=== PATIENT | female | born 1965 | race Caucasian/White ===

== ENCOUNTER → 2017-12-28 12:15 | Outpatient (CLI) | payer OTHER, SELFPAY ==
--- NOTE | 2017-12-28 13:37 | DI.CT.S_ITS ---
PROCEDURE: CT CHEST ABD PEL W CON INDICATIONS: Malignant neoplams of unspecified site TECHNIQUE: After the administration of oral and intravenous contrast, 5 mm thick sections acquired from the lung apices to the symphysis. 5 mm coronal and sagittal reformats were performed, with additional 7 mm coronal MIP reformats through the lungs. For radiation dose reduction, the following was used: automated exposure control, adjustment of mA and/or kV according to patient size. COMPARISON: [facility], US, BREAST UNILATERAL LIMITED, 01/07/2017, 15:04. [facility], , BILATERAL DIAGNOSTIC MAMMOGRAM, 01/07/2017, 14:30. [facility], CT, CHEST/ABD/PEL WITH CONTRAST, 10/29/2015, 15:06. FINDINGS: Image quality: Excellent. CHEST: Lungs and pleura: There are bilateral peripheral areas of scarring redemonstrated within the lung apices including several nodular components. There is also peripheral scarring posteriorly within the right upper and lower lobes along the right major fissure. The findings are similar to the prior study. No new suspicious nodules or masses lesions. No acute consolidation. No pleural effusions or pneumothorax. Central and peripheral airways appear patent and normal in caliber. Mediastinum: Heart size is normal. No pericardial effusion. No mediastinal or hilar adenopathy by size criteria. Thoracic aorta and central pulmonary arteries are normal in size. Esophagus is normal in caliber. No hiatal hernia. Chest wall: Within the medial left breast, there is a loculated thin-walled fluid collection measuring 7.0 x 5.9 x 6.3 cm with associated internal calcifications. No axillary or supraclavicular adenopathy by size criteria. Thyroid gland demonstrates no discrete nod and ules. ABDOMEN: Solid organs: Liver is normal in size and enhancement. Gallbladder appears within normal limits. Biliary system is non dilated. Pancreas enhances normally. Spleen is normal in size and enhancement. No adrenal nodules. Kidneys demonstrate no hydronephrosis. There are areas of focal left renal cortical thinning compatible with sequela of prior trauma, infarct, or infection. Peritoneum and bowel: Small bowel loops demonstrate normal wall thickness and caliber. There is moderate colonic stool distention suggestive of constipation. No definite obstruction. No free fluid or air. Nodes and vessels: No retroperitoneal or mesenteric adenopathy by size criteria. Aorta and inferior vena cava are normal in size. Miscellaneous: No ventral hernias. PELVIS: Genitourinary: Bladder wall thickness is normal. Miscellaneous: No inguinal hernias or adenopathy. Bones: No suspicious bony lesions. No vertebral body compression fractures. IMPRESSION: 1. Fluid collection within the medial left breast likely represents postsurgical changes. Recommend correlation clinically. 2. Elsewhere, no definite evidence of metastatic disease. Dictated by: Yao Park M.D. on 12/28/2017 at 15:58 Approved by: Yao Park M.D. on 12/28/2017 at 16:10
--- NOTE | 2018-02-23 11:17 | ONC.NAV ---
Description: T/C-Care Coordination/transfer back to Activity: Left a message for pt indicating that we now have a provider who can take her insurance, and would she like to transfer her care back to [facility]? Requested return call.
--- NOTE | 2018-03-14 14:22 | ONC.NAV ---
Description: Appt. Care Coordination Activity: Called and left a message for pt that after her appt. on 03/22 at [facility], that she can return back to [facility] for all ongoing oncology care with Dr. Stover. Katie Schmidt called [facility] and coordinated with the staff re: this plan. Encouraged pt to call this MARKETING RESEARCH INTERN back should she have any additional questions.
== END ==
PROVIDERS: PCP Physician Assistant; Visit Provider Internal Medicine Hematology & Oncology
DX: C80.1 Malignant (primary) neoplasm, unspecified (principal)
CPT/HCPCS: 71260; 74177; Q9967

== ENCOUNTER → 2018-01-10 15:54 | Outpatient (CLI) | payer OTHER, SELFPAY ==
[2018-01-10 17:31] LABS: Add Manual Diff / Slide Review NO; Basophils Percent Auto 1.4 % (0-2); Hematocrit 32.9 % (36-46); Hemoglobin 11.3 g/dL (12.0-16.0); Lymphocytes Percent Auto 19.3 % (25-40); Mean Corpuscular HGB Conc 34.5 % (30-36); Mean Corpuscular Hemoglobin 30.9 PG (26-34); Mean Corpuscular Volume 89.6 fL (80-100); Monocytes Percent Auto 5.9 % (3-14); Neutrophils Absolute Auto 5900 /uL (3000-5900); Neutrophils Percent Auto 64.4 % (50-75); Platelet Count 380 X10^3/uL (150-400); Red Blood Cell Count 3.68 X10^6/uL (4.0-5.2); Red Cell Distribution Width 13.1 % (11.6-14.8); White Blood Cell Count 9.2 X10^3/uL (4.5-11.0)
[2018-01-10 18:24] LABS: Alanine Aminotransferase 60 IU/L (9-52); Albumin Globulin Ratio 1.4 (1.0-2.8); Alkaline Phosphatase 73 U/L (38-126); Aspartate Aminotransferase 60 IU/L (14-36); Bilirubin Total 0.3 mg/dL (0.2-1.3); Blood Urea Nitrogen 6 mg/dL (7-17); Calcium 9.4 mg/dL (8.4-10.2); Carbon Dioxide 32 mmol/L (22-32); Chloride 93 mmol/L (98-107); Estimated Glomerular Filt Rate > 60.0 mL/min (>60); Globulin 2.8 g/dL (1.7-4.1); Glucose 81 mg/dL (70-100); HEMOLYSIS < 15 (0-50); Sodium 135 mmol/L (137-145); Total Protein 6.8 g/dL (6.3-8.2)
[2018-01-10 18:54] LABS: Carcinoembryonic Antigen 2.9 ng/mL (0.1-3.0)
[2018-01-12 15:30] LABS: Cancer Antigen 27.29 58 U/mL (< 38)
== END ==
PROVIDERS: PCP Physician Assistant; Visit Provider Internal Medicine Hematology & Oncology
DX: C50.912 Malignant neoplasm of unspecified site of left female breast (principal)
CPT/HCPCS: 36415; 80053; 82378; 85025; 86300

== ENCOUNTER → 2018-02-08 12:11 | Outpatient (CLI) | payer BC, OTHER, SELFPAY ==
--- NOTE | 2018-02-08 12:13 | DI.RAD.S_ITS ---
PROCEDURE: IR PICC W FLUORO GUIDE INDICATIONS: PIC PLACEMENT COMPARISON: None. FINDINGS: PICC was placed by the intravenous therapy team from the right side. Fluoroscopic spot film demonstrates tip of PICC overlying the distal SVC. IMPRESSION: Tip of PICC lies within the expected location. Dictated by: Mikel Hooper M.D. on 02/08/2018 at 14:36 Approved by: Mikel Hooper M.D. on 02/08/2018 at 14:37
--- NOTE | 2018-05-16 10:06 | ONC.NAV ---
Description: T/C re: transitioning care back to Activity: Left pt a message that both our oncologists are now credentialed with [employer], and encouraged her to call me re: scheduling her care back her at (which was her stated goal).
--- NOTE | 2018-05-16 13:25 | ONC.NAV ---
Description: Care Coordination/transfer back to Activity: Left patient a message that this SPORTS MANAGER spoke with the Navigator at [facility], and all patient needs to do is call [facility] to arrange for the placement of her PICC line, then call our office to schedule her next appointment with Dr. Andujar. She has no further appointments at [facility].
== END ==
PROVIDERS: Family Provider Physician Assistant; PCP Physician Assistant; Visit Provider Internal Medicine Hematology & Oncology
DX: Z45.2 Encounter for adjustment and management of vascular access device (principal)
CPT/HCPCS: 36569; 77001

== ENCOUNTER → 2018-06-15 13:36 | Outpatient (CLI) | payer OTHER, SELFPAY ==
--- NOTE | 2018-06-15 | DI.RAD.S_ITS ---
PROCEDURE: FL GUIDED PICC PLACEMENT INDICATIONS: MALIGNANT NEOPLASM OF LEFT BREAST IN FEMALE COMPARISON: None. FINDINGS: PICC was placed by the intravenous therapy team from the right side. Fluoroscopic spot film demonstrates tip of PICC in the SVC. IMPRESSION: Tip of PICC lies within the SVC. Dictated by: Sergio Cordoba M.D. on 06/15/2018 at 15:35 Approved by: Sergio Cordoba M.D. on 06/15/2018 at 15:36
== END ==
PROVIDERS: PCP Physician Assistant; Visit Provider Internal Medicine Hematology & Oncology
DX: C50.912 Malignant neoplasm of unspecified site of left female breast (principal); Z45.2 Encounter for adjustment and management of vascular access device
CPT/HCPCS: 36569; 77001

== ENCOUNTER 2018-06-15 19:24 | Emergency (ER) | payer OTHER, SELFPAY ==
--- NOTE | 2018-06-15 19:28 | ED_ITS ---
HPI - General Adult <CLEO Stover - Last Filed: 06/15/18 22:12> General Chief complaint: Recheck/Abnormal Lab/Rx Stated complaint: right arm PICC line wont stop bleeding Time Seen by Provider: 06/15/18 19:27 Source: patient Mode of arrival: ambulatory Limitations: no limitations History of Present Illness HPI narrative: 52-year-old female with history breast cancer that is a nonsmoker here for complaint of bleeding from her PICC line site to her right upper arm. She states she recently had a PICC line placed to day and has been bleeding slightly this afternoon after was placed. She denies any trauma to the area. She denies any pain. No other concerns or complaints at this time. She denies being on any blood thinners but she does take aspirin and Motrin daily for discomfort Related Data Home Medications Medication Instructions Recorded Confirmed OMEGA-3 FATTY ACIDS (FISH OIL) 500 mg PO Q DAY #0 04/24/16 06/14/18 Lacto.acidophilus-Bif.animalis 1 cap PO DAILY 12/15/17 06/14/18 [Probiotic] loratadine [Claritin] 10 mg PO DAILY PRN 12/15/17 06/14/18 multivitamin 1 tab PO DAILY 12/15/17 06/14/18 vitamin B complex 1 tab PO DAILY 12/15/17 06/14/18 Previous Rx's Medication Instructions Recorded cephalexin 500 mg capsule 500 mg PO BID 10 Days #20 cap 06/14/18 mupirocin 2 % topical ointment 1 applic TOP BID #30 gram 06/14/18 Allergies Allergy/AdvReac Type Severity Reaction Status Date / Time Sulfa (Sulfonamide Allergy Unknown Verified 06/14/18 09:20 Antibiotics) [SULFA (SULFONAMIDE ANTIBIOTICS)] Review of Systems <CLEO Stover - Last Filed: 06/15/18 22:12> Constitutional Denies chills, Denies fever(s), Denies lethargy and Denies weakness Eyes Denies change in vision, Denies eye discharge, Denies irritation and Denies loss of vision ENT Ears, Nose, Mouth, and Throat: Denies change in voice, Denies neck pain and Denies sore throat Cardiovascular Denies chest pain, Denies irregular heart rhythm, Denies lightheadedness, Denies palpitations, Denies dyspnea, Denies dyspnea on exertion and Denies orthopnea Respiratory Denies cough, Denies dyspnea, Denies dyspnea on exertion and Denies wheezing Gastrointestinal Gastrointestinal: Denies abdominal pain, Denies change in bowel habits, Denies diarrhea, Denies nausea and Denies vomiting Genitourinary Denies hematuria, Denies flank pain, Denies urinary incontinence and Denies urinary urgency Musculoskeletal Denies neck pain Comments: PICC line site to right upper arm bleeding Integumentary/Breasts Denies pruritus, Denies erythema, Denies rash and Denies wounds Neurologic Denies confusion, Denies loss of vision and Denies weakness Psychiatric Denies anxiety, Denies confusion, Denies depression, Denies homicidal ideation and Denies suicidal ideation Endocrine Denies palpitations Hematologic/Lymphatic Denies easy bruising Allergic/Immunologic Denies wheezing Exam <CLEO Stover - Last Filed: 06/15/18 22:12> Initial Vital Signs Initial Vital Signs: Vital Signs Temperature 97.7 F 06/15/18 19:31 Pulse Rate 81 06/15/18 19:31 Respiratory Rate 16 06/15/18 19:31 Blood Pressure 133/81 06/15/18 19:31 Pulse Oximetry 99 06/15/18 19:31 Const General: cooperative and well developed Nutritional Appearance: well nourished Orientation: alert, awake, oriented x3 and not confused [facility] Mouth: oral mucosae normal and moist mucous membranes Eyes General: appearance normal, both eyes and all related structures Eyelids: eyelids normal Conjunctivae: conjunctivae normal Sclera: sclerae normal Pupils: PERRL EOM: EOM intact bilaterally Resp Effort & Inspection: normal respiratory effort, able to speak in complete sentences, no respiratory distress and no use of accessory muscles Auscultation: clear to auscultation bilaterally, no rales, no rhonchi and no wheezes Cardio Rate: regular rate Rhythm: regular rhythm Heart Sounds: no click, no gallops, no murmurs and no rubs Pulses: normal peripheral pulses Skin General: no rashes or lesions noted, No jaundice and No petechiae Neuro General: alert, oriented x3, gait normal and no focal motor deficits Speech: speech normal Extrem Other: PICC line site to right upper arm with no signs of trauma. No signs of infection. No bleeding at current timeframe. Distal sensation is intact. Distal pulses are intact. Distal range of motion is intact <Jak Khalil DO - Last Filed: 06/15/18 22:36> Initial Vital Signs Initial Vital Signs: Vital Signs Temperature 97.7 F 06/15/18 19:31 Pulse Rate 81 18 19:31 Respiratory Rate 16 18 19:31 Blood Pressure 133/81 18 19:31 Pulse Oximetry 99 06/15/18 19:31 Course <CLEO Stover - Last Filed: 06/15/18 22:12> Vital Signs - 8 hr 06/15/18 19:31 Temperature 97.7 F Pulse Rate 81 Respiratory Rate 16 Blood Pressure 133/81 Pulse Oximetry 99 <Jak Khalil DO - Last Filed: 06/15/18 22:36> Vital Signs - 8 hr 06/15/18 19:31 Temperature 97.7 F Pulse Rate 81 Respiratory Rate 16 Blood Pressure 133/81 Pulse Oximetry 99 Medical Decision Making <CLEO Stover - Last Filed: 06/15/18 22:12> MDM Narrative Medical decision making narrative: Dressing to the right PICC line was changed in the emergency room. No signs of infection and no signs of bleeding at this time. PICC line was redressed. Patient to follow up with Oncology as scheduled in the next couple of days. Follow up with primary care provider. For any worsening symptoms return to the emergency room. She is encouraged to limit activity to the right upper arm this evening. Discharge Plan Departure Patient Disposition: Home Clinical Impression: Bleeding from PICC line Discharge Date/Time: 06/15/18 20:07 Interventions: ED Discharge Assessment Last Done: 06/15/18 20:07 Instructions: Peripherally Inserted Central Catheter Activity Restrictions/Additional Instructions: Dressing was changed to the PICC line. No bleeding appreciated at current time. Limit activity to the right upper arm this evening to prevent dislodging of a clotting factors. Follow up with her primary care provider/Oncology in the next couple days as scheduled. For any worsening symptoms return to the emergency room. Prescriptions: No Action cephalexin 500 mg capsule 500 mg PO BID 10 Days Qty: 20 RF: 0 mupirocin 2 % ointment 1 applic TOP BID Qty: 30 RF: 0 OMEGA-3 FATTY ACIDS (FISH OIL) 500 mg PO Q DAY Qty: 0 RF: 0 multivitamin Tablet 1 tab PO DAILY RF: 0 vitamin B complex Tablet 1 tab PO DAILY RF: 0 loratadine [Claritin] 10 mg Tablet 10 mg PO DAILY PRN (Reason: Allergy Symptoms) RF: 0 Lacto.acidophilus-Bif.animalis [Probiotic] 5 billion cell Capsule, Sprinkle 1 cap PO DAILY RF: 0 Referrals: Nguyen Rea PA-C [Primary Care Provider] - <Jak Khalil DO - Last Filed: 06/15/18 22:36> Cosign ED Attending [place] Attestation: I was available for consultation during this patient's emergency department encounter
[2018-06-15 19:31] VITALS: BP 133/81; PULSE 81; RESP 16; TEMP 36.5; O2SAT 99
== END 2018-06-15 20:07 | disposition home or self-care (01) ==
PROVIDERS: Emergency Provider Nurse Practitioner Family; PCP Physician Assistant
DX: T82.838A Hemorrhage due to vascular prosthetic devices, implants and grafts, initial encounter (principal)
CPT/HCPCS: 99282

== ENCOUNTER → 2018-07-05 07:56 | Outpatient (CLI) | payer OTHER, SELFPAY ==
--- NOTE | 2018-07-05 09:44 | DI.CT.S_ITS ---
PROCEDURE: CT CHEST ABD PEL W CON INDICATIONS: restaging breast cancer TECHNIQUE: After the administration of oral and intravenous contrast, 5 mm thick sections acquired from the lung apices to the symphysis. 5 mm coronal and sagittal reformats were performed, with additional 7 mm coronal MIP reformats through the lungs. For radiation dose reduction, the following was used: automated exposure control, adjustment of mA and/or kV according to patient size. COMPARISON: [facility], CT, CT CHEST ABD PEL W CON, 12/28/2017, 13:08. [facility], CT, CHEST/ABD/PEL WITH CONTRAST, 10/29/2015, 15:06. FINDINGS: Image quality: Excellent. CHEST: Lungs and pleura: Areas of subpleural thickening are seen, which are similar to the prior examination. No pleural effusions or pneumothorax. Central and peripheral airways appear patent and normal in caliber. Mediastinum: Heart size is normal. No pericardial effusion. No mediastinal or hilar adenopathy by size criteria. Thoracic aorta and central pulmonary arteries are normal in size. Esophagus is normal in caliber. There is a small hiatal hernia. Chest wall: No axillary or supraclavicular adenopathy by size criteria. Thyroid gland demonstrates no significant CT abnormality. An irregular, partially cystic left medial inferior breast lesion is seen, with skin ulceration. This breast lesion is smaller than on the prior examination and measures 5.2 x 2.8 cm in greatest axial dimension. A right-sided PICC line is seen, with the tip near the cavoatrial junction. ABDOMEN: Solid organs: Liver is normal in size and enhancement. Gallbladder wall does not appear thickened. Biliary system is non dilated. Pancreas enhances normally. Spleen is normal in size and enhancement. No adrenal nodules. Kidneys demonstrate normal size and enhancement, without hydronephrosis. lobulation can be seen of the left kidney. Peritoneum and bowel: Bowel loops demonstrate normal wall thickness and caliber. No free fluid or air. A prominent amount of stool can be seen within the colon. Nodes and vessels: No retroperitoneal or mesenteric adenopathy by size criteria. Aorta and inferior vena cava are normal in size. Miscellaneous: No ventral hernias. PELVIS: Genitourinary: Bladder wall thickness is normal. Miscellaneous: No inguinal hernias or adenopathy. Bones: No suspicious bony lesions. No vertebral body compression fractures. Mild levoconvex scoliotic curvature is noted. Degenerative changes are seen throughout, which are most prominent at the L4-L5 level. IMPRESSION: A partially cystic left breast lesion is seen, which is smaller than on the prior examination. Associated skin ulceration can be seen. No jenni findings of metastatic disease are seen. Stable areas of subpleural thickening are seen. Incidental note is made of: Right-sided PICC line Small hiatal hernia lobulation of the left kidney. Prominent colonic stool Focal L4-L5 degenerative change Levoconvex scoliotic curvature Dictated by: Latrell Echevarria M.D. on 07/05/2018 at 9:18 Approved by: Latrell Echevarria M.D. on 07/05/2018 at 9:25
== END ==
PROVIDERS: Family Provider Physician Assistant; PCP Physician Assistant; Visit Provider Nurse Practitioner Gerontology
DX: C50.919 Malignant neoplasm of unspecified site of unspecified female breast (principal); N60.02 Solitary cyst of left breast; L98.499 Non-pressure chronic ulcer of skin of other sites with unspecified severity; Z95.828 Presence of other vascular implants and grafts; K44.9 Diaphragmatic hernia without obstruction or gangrene; M47.816 Spondylosis without myelopathy or radiculopathy, lumbar region; M41.9 Scoliosis, unspecified
CPT/HCPCS: 71260; 74177; Q9967

== ENCOUNTER → 2018-07-07 15:57 | Outpatient (CLI) | payer OTHER, SELFPAY ==
--- NOTE | 2018-07-07 16:07 | DI.CT.S_ITS ---
PROCEDURE: CT SOFT TISSUE NECK W CON INDICATIONS: enlarged lymph node to neck TECHNIQUE: After the administration of intravenous contrast, 3.0 mm axial sections acquired from the sella to the aortic arch. Additional oblique axial 3.0 mm sections acquired through the pharynx. 3 mm thick coronal and sagittal reformats were generated. For radiation dose reduction, the following was used: automated exposure control. COMPARISON: [facility], MR, BRAIN WITHOUT CONTRAST, 01/19/2017, 20:24. [facility], CT, CT CHEST ABD PEL W CON, 07/05/2018, 9:11. FINDINGS: Image quality: Excellent. Lymph nodes: No enlarged lymph nodes seen throughout the neck. Vessels: Visualized vasculature appears patent. There is an apparent right subclavian artery, which traverses posterior to the esophagus. Incidental note is made of a common origin of the right brachiocephalic artery and the left common carotid artery (bovine type arch). This is considered to be a developmental variant of no clinical consequence. Neck spaces: The oropharynx, nasopharynx, and pharynx demonstrate no mucosal lesions. The vocal cords, false vocal cords, pyriform sinuses, epiglottis, vallecula, and tongue base all appear normal. Extramucosal spaces appear unremarkable. Glands: The parotid and submandibular glands appear normal. Thyroid gland demonstrates no significant CT abnormality. Miscellaneous: Visualized brain and orbits appear normal. Lung apices appear clear. Superficial soft tissues appear normal. There is a right-sided PICC line seen, extending into the superior vena cava. Bones: No suspicious bony lesions. Visualized sinuses and mastoids appear unremarkable. Degenerative changes are seen, which are most prominent at the C6-C7 level. IMPRESSION: No enlarged lymph nodes are seen. No findings of metastatic disease are seen. 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 on 07/07/2018 at 16:25 Approved by: Latrell Echevarria M.D. on 07/07/2018 at 16:30
== END ==
PROVIDERS: PCP Physician Assistant; Visit Provider Nurse Practitioner Gerontology
DX: C50.919 Malignant neoplasm of unspecified site of unspecified female breast (principal); R59.0 Localized enlarged lymph nodes; M47.812 Spondylosis without myelopathy or radiculopathy, cervical region
CPT/HCPCS: 70491; 87070; 87077; 87147; 87186; 87205; Q9967

== ENCOUNTER → 2018-09-13 14:39 | Outpatient (CLI) | payer OTHER, SELFPAY ==
--- NOTE | 2018-09-13 14:41 | DI.CT.S_ITS ---
PROCEDURE: CT CHEST ABD PEL W CON INDICATIONS: breast cancer TECHNIQUE: After the administration of oral and intravenous contrast, 5 mm thick sections acquired from the lung apices to the symphysis. 5 mm coronal and sagittal reformats were performed, with additional 7 mm coronal MIP reformats through the lungs. For radiation dose reduction, the following was used: automated exposure control, adjustment of mA and/or kV according to patient size. COMPARISON: [facility], CT, CT CHEST ABD PEL W CON, 12/28/2017, 13:08. [facility], CT, CT CHEST ABD PEL W CON, 07/05/2018, 9:11. FINDINGS: Image quality: Excellent. CHEST: Lungs and pleura: No acute consolidation. Scattered subsegmental atelectasis and/or scarring. No pleural effusions or pneumothorax. Central and peripheral airways appear patent and normal in caliber. Mediastinum: Heart size is normal. No pericardial effusion. No mediastinal or hilar adenopathy by size criteria. 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 Bovine anatomy of the aortic arch. Thoracic aorta and central pulmonary arteries are normal in size. Esophagus is normal in caliber. No hiatal hernia. Chest wall: No axillary or supraclavicular adenopathy by size criteria. Thyroid gland negative. Presumed postoperative changes including seroma or hematoma involving the medial left breast, appears decreased since the prior study. ABDOMEN: Solid organs: Mild hepatic steatosis. Gallbladder contracted otherwise unremarkable. Biliary system is non dilated. Gas is present within the distal common bile duct as before raises the possibility of prior sphincterotomy. Pancreas enhances normally. Spleen is normal in size and enhancement. No adrenal nodules. Bilateral renal cortical scarring, without hydronephrosis. Peritoneum and bowel: Bowel loops demonstrate normal wall thickness and caliber. There is a large amount of diffuse stool. No definite transition point or bowel obstruction identified. No free fluid or air. Appendix is not clearly identified however no suspicious pericecal inflammatory changes are identified Nodes and vessels: No retroperitoneal or mesenteric adenopathy by size criteria. Aorta and inferior vena cava are normal in size. Miscellaneous: No ventral hernias. PELVIS: Genitourinary: Bladder wall thickness is normal. Miscellaneous: No inguinal hernias or adenopathy. Bones: No suspicious bony lesions. No vertebral body compression fractures. IMPRESSION: No specific evidence for active metastatic disease. Presumed postsurgical changes involving the left breast with decreasing size of probable postoperative seroma/hematoma since the prior study. Mild hepatic steatosis. Additional chronic and incidental findings as above. Dictated by: Quinn Stover M.D. on 09/13/2018 at 16:37 Approved by: Quinn Stover M.D. on 09/13/2018 at 16:45
== END ==
PROVIDERS: Family Provider Physician Assistant; PCP Physician Assistant; Visit Provider Internal Medicine Hematology & Oncology
DX: C50.212 Malignant neoplasm of upper-inner quadrant of left female breast (principal); K76.0 Fatty (change of) liver, not elsewhere classified
CPT/HCPCS: 71260; 74177; Q9967

== ENCOUNTER → 2018-12-22 10:00 | Oncology outpatient (ONC) | payer BC, OTHER, SELFPAY ==
[2017-12-15 10:43] VITALS: BP 133/80; PULSE 65; RESP 17; TEMP 36.8; O2SAT 100
--- NOTE | 2017-12-15 16:20 | ONC.PN ---
Assessment and Plan - Time Spent with Patient IMPRESSION: 1. 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 Was scheduled for mastectomy on 07/21/2016 but opted not to proceed with surgery at that time. 2. Osteopenia. 3. Pneumonia, resolved. Treated at urgent care. I reviewed the findings and concerns with her today. Physical examination reveals a large, red and protruding mass emanating from the upper inner quadrant of the left breast. It measures approximately 6 cm x 6 cm. Currently without active drainage or bleeding. I strongly encouraged her to proceed expeditiously with restaging workup and surgical consultation. It is encouraging that she still denies any symptoms which might suggest metastatic disease. Again we will follow up with her next week to review CT and bone scan results and pursue further diagnostic imaging if indicated at that time. I offered her much a encouragement and will also have her meet with our clinical social work therapist and navigator following her visit with me today. PLAN: 1. CBC, CMP, CEA, CA 27.[address] chest/abdomen/pelvis 3. Bone scan 4. Referral to breast surgeon for consultation. 5. Meet with clinic humphrey today in clinic. 6. Return appointment in 1 week. 7. Further imaging and workup if indicated based on results of above studies. 8. DICTATED BY DANIELITO LAMAR MD MEDICAL ONCOLOGY AND HEMATOLOGY PN -Subjective Interval history: Hematology/oncology progress note Patient name: Lisa Barton Date of service: December 15, 2017 Date of : 1965 PCP: Nguyen PRAKASH Identification: Ms Barton is a 52-year-old woman with triple negative carcinoma of the left breast diagnosed October 09, 2015, grade 3/3, ER negative, NJ negative, HER2 negative. Interval history: She returns in follow-up today with her daughter FT. Last seen here in clinic by our nurse practitioner on December 23, 2016. Previously treated by Dr. Mistry with dose dense AC followed by weekly carboplatin/paclitaxel with last treatment 05/01/2016. She was reportedly scheduled for mastectomy on 07/21/2016 but chose not to have surgery at that time. She was seen here in clinic on December 23, 2016 after noting increasing size of a left breast lump. At that time the recommendation was to proceed with CT bone scan lab work and to follow up to review results as well as follow up with her surgeon. She apparently did not do so at that time and returns now a year later with complaints of increasing pain and swelling in the left breast lump. Despite this concern, she denies new areas of pain or discomfort, no bone pain, headache or new neurologic symptoms. No cough, dyspnea, nausea or abdominal pain. She says she is willing to have consultation with the surgeon again. Past Medical History The patient's past medical history is significant for: [1) left-sided invasive triple negative breast cancer. Diagnosis confirmed on core needle biopsy dated 10/09/2015. Pathology confirming invasive mammary carcinoma, poorly differentiated, with a Nagi histological grade 3 out of 3, and a mitotic rate of 3. No in situ component was seen, no LV I was identified. Longest diameter was 3.5 mm. Immunostains were ER NJ and HER-2 negative. Clinical staging workup has included CT of the chest on the pelvis on 10/29/2015. This reported a 88 x 50 ovoid peripherally enhancing mass in the right breast. No other disease was otherwise reported. Bone scan on 11/22/2015 reporting no evidence of osseous metastasis. Ultrasound of the left axilla ordered on 12/05/2015. Clinically the breast lesion measured 6 cm in greatest diameter. After 4 cycles of AC chemotherapy the left breast lesion measures 2 x 3 cm on clinical exam (01/23/2016). Baseline CEA on 10/29/2015 normal at 2.6, CA-27-29 of 54, , CA 15-3 at 46 . TREATMENT PLAN: Neoadjuvant chemotherapy, surgery, radiation therapy. Treatment goals are curative. Patient started neoadjuvant chemotherapy on 11/19/2015 with a regimen of dose dense Adriamycin and Cytoxan given every 2 weeks for total of 4 cycles. This will be followed by weekly paclitaxel and carboplatin AUC of 4 given every third week. No indication to restage her until completion of chemotherapy given the superficial location of her lesion. Adriamycin and cyclophosphamide at 60 and 600 mg/m? ?4 were administered without dose reductions. Patient required a 20% dose reduction of her carboplatin and paclitaxel starting cycle 1 week 2. Patient completed therapy on 05/01/2016. Surgical consultation with Dr. Avila on 05/15/2016. Based on her initial clinical stage she would be a candidate for chest wall radiation therapy. - Patient Self-Reported Symptoms SR respiratory issues: Cough, Mucous - Additional ROS Additional ROS: Review of systems General: Denies fever, chills. HEENT: No headaches, vision change or dysphagia. Respiratory: No cough or dyspnea. Cardiac: No chest pain, PND or orthopnea. GI: No nausea or abdominal bloating. : Negative. Musculoskeletal: Otherwise negative. Neurologic: Negative. Home Medications and Allergies Home Medications Medication Instructions Recorded Confirmed Type OMEGA-3 FATTY ACIDS (FISH OIL) 500 mg PO Q DAY #0 04/24/16 12/15/17 History naproxen 250 mg PO 1-2XD #0 07/14/16 12/15/17 History Lacto.acidophilus-Bif.animalis 1 cap PO DAILY 12/15/17 12/15/17 History [Probiotic] loratadine [Claritin] 10 mg PO DAILY PRN 12/15/17 12/15/17 History multivitamin 1 tab PO DAILY 12/15/17 12/15/17 History vitamin B complex 1 tab PO DAILY 12/15/17 12/15/17 History Allergies Allergy/AdvReac Type Severity Reaction Status Date / Time Sulfa (Sulfonamide Allergy Unknown Verified 12/15/17 11:04 Antibiotics) [SULFA (SULFONAMIDE ANTIBIOTICS)] Exam Vital signs: Last Vital Signs Temp 98.2 F 12/15/17 10:43 Pulse 65 12/15/17 10:43 Resp 17 12/15/17 10:43 BP 133/80 H 12/15/17 10:43 Pulse Ox 100 12/15/17 10:43 - Constitutional positive no acute distress, positive thin, positive cooperative - Routine HEENT Exam Head: Present: normocephalic, atraumatic Eye: Present: EOMI, PERRL. Absent: conjunctival icterus, scleral injection ENT: Present: mucous membranes moist, oropharynx clear - Routine Neck Exam Absent: JVD, lymphadenopathy - Routine Chest/Breast/Axilla Exam Breast: Present: tenderness, induration, mass, erythema Axillae: Present: tenderness. Absent: lymphadenopathy, mass - Routine Respiratory Exam Present: Clear to auscultation bilaterally. Absent: rales, wheezes - Routine Cardiovascular Exam Present: RRR, S1, S2. Absent: murmur, S3 - Routine Abdominal Exam Present: soft, normoactive bowel sounds. Absent: tenderness, organomegaly Palpation/Percussion: Absent: hepatomegaly - Routine Extremities Exam Absent: cyanosis, clubbing, edema - Routine Skin Exam Present: intact. Absent: cyanosis, erythema, jaundice, rash, ecchymosis - Routine Neurological Exam Present: alert, oriented X3, normal speech - Routine Psychiatric Exam Present: normal affect, cooperative
--- NOTE | 2018-01-12 14:39 | P.PNONC_ITS ---
Assessment and Plan - Time Spent with Patient IMPRESSION: 1. Locally advanced, triple negative carcinoma of the left breast diagnosed October 09, 2015 with core needle biopsy and completed neoadjuvant chemotherapy with dose dense AC x4 cycles, followed by weekly paclitaxel/carboplatin on May 01, 2016. Scheduled for mastectomy on July 21, 2016 but chose to defer surgery at that time. Tumor has since regrown. 2. Osteopenia. 3. Anxiety. 4. Pneumonia, resolved. 5. Anemia, normocytic. I reviewed recent lab and imaging results with her today's visit. Bone scan December 27, 2017 shows no suspicious uptake to suggest osseous metastases. Increased uptake in the lower lumbar spine and in the right hip most likely degenerative in nature. CT chest/abdomen/pelvis with contrast December 28, 2017 shows loculated fluid collection within the medial left breast but no axillary or supraclavicular adenopathy by size criteria. No definite evidence for metastatic disease by CT. Routine lab work notable for normocytic anemia, mild. I reviewed the findings with her today. These are certainly encouraging since it is now approximately 20 months since she completed neoadjuvant chemotherapy. She has had no specific treatment since then yet current imaging does not show evidence of regional involvement or metastatic disease. She is willing to consider treatment at this time and I would agree with Dr. Wiseman that we should consider further neoadjuvant therapy before attempting surgical resection with mastectomy. She is willing to proceed with surgery when needed and feels very comfortable with Dr. Wiseman, she tells me today. She is willing to consider further chemotherapy treatment and we reviewed this. Her case was reviewed at tumor Board and repeat biopsy was recommended to reassess HER2 and ER status given the unusual history and tumor behavior. We will contact Dr. Wiseman's office to see if she plans an excisional biopsy otherwise we will refer her for ultrasound-guided biopsy and then plan to proceed with systemic therapy. I would not recommend further anthracycline based treatment with AC or Doxil given the risk for cardiomyopathy. She noted only minor tingling in her fingertips with paclitaxel and carboplatin. The symptoms have since completely resolved and she denies any symptoms of neuropathy at this time. I would favor retreatment with paclitaxel and carboplatin given her previous response (overall). Other options would include capecitabine, as well as vinorelbine, gemcitabine, eribulin, and others. PLAN: 1. Meet with navigator in clinic today. Continue close follow-up and support. 2. Referral for ultrasound-guided core needle biopsy of left breast mass. Re- evaluated for HER2 and ER status. 3. Meet with clinic nurse for teaching and scheduling for chemotherapy. 4. Follow up with other providers as planned. 5. Return appointment to review biopsy results and finalize treatment plan. 6. CBC, CMP, CA 27.29 and CEA prior to start of treatment. 7. Calcium, vitamin-D and weight-bearing exercise program. DICTATED BY DANIELITO LAMAR MD MEDICAL ONCOLOGY AND HEMATOLOGY PN -Subjective Interval history: Hematology/oncology progress note Patient name: Lisa Barton Date of service: January 12, 2018 Date of : 1965 PCP: Nguyen PRAKASH Identification: Ms Barton is a 52-year-old woman with triple negative carcinoma of the left breast diagnosed October 09, 2015, grade 3/3, ER negative, ID negative, HER2 negative. Interval history: She returns in follow-up today to review recent imaging studies. She was originally diagnosed with core needle biopsy of the left breast October 09, 2015. Completed neoadjuvant chemotherapy with 4 cycles of AC followed by paclitaxel and carboplatin weekly for approximately 12 weeks. Clinic note suggest a significant response and she was referred for consideration of interval mastectomy. She completed neoadjuvant chemotherapy on May 01, 2016. Had consultation with Dr. Avila on May 15, 2016. Unfortunately, she did not follow up for surgery and was lost to follow-up until November 2016. At that time she was referred for biopsy by Corine GALLO but did not follow-up for this or return to clinic in tail November 2017. When most recently seen here in clinic last month she was noted to have a large fungating mass arising from the left breast which she estimated to be similar in size to the size at presentation prior to her neoadjuvant therapy. After evaluation here in clinic, we referred her for restaging with CT and bone scan, lab work and referred her to a breast surgeon. She returns today to review the results. She met with Dr. Wiseman in [facility] yesterday and reviewed the imaging results and potential plan for surgical resection. Dr. Wiseman is understandably concerned about whether resection could be accomplished at this time without difficulty with surgical closure as well as chest wall margin. She has recommended additional neoadjuvant therapy in an attempt to reduce the size and extent of the tumor and allow her to resect the residual mass. Past Medical History The patient's past medical history is significant for: [1) left-sided invasive triple negative breast cancer. Diagnosis confirmed on core needle biopsy dated 10/09/2015. Pathology confirming invasive mammary carcinoma, poorly differentiated, with a Douglas histological grade 3 out of 3, and a mitotic rate of 3. No in situ component was seen, no LV I was identified. Longest diameter was 3.5 mm. Immunostains were ER ID and HER-2 negative. Clinical staging workup has included CT of the chest on the pelvis on 2015. This reported a 88 x 50 ovoid peripherally enhancing mass in the right breast. No other disease was otherwise reported. Bone scan on 11/22/2015 reporting no evidence of osseous metastasis. Ultrasound of the left axilla ordered on 12/05/2015. Clinically the breast lesion measured 6 cm in greatest diameter. After 4 cycles of AC chemotherapy the left breast lesion measures 2 x 3 cm on clinical exam (01/23/2016). Baseline CEA on 10/29/2015 normal at 2.6, CA-27-29 of 52, , CA 15-3 at 46 . TREATMENT PLAN: Neoadjuvant chemotherapy, surgery, radiation therapy. Treatment goals are curative. Patient started neoadjuvant chemotherapy on 11/19/2015 with a regimen of dose dense Adriamycin and Cytoxan given every 2 weeks for total of 4 cycles. This will be followed by weekly paclitaxel and carboplatin AUC of 4 given every third week. No indication to restage her until completion of chemotherapy given the superficial location of her lesion. Adriamycin and cyclophosphamide at 60 and 600 mg/m? ?4 were administered without dose reductions. Patient required a 20% dose reduction of her carboplatin and paclitaxel starting cycle 1 week 2. Patient completed therapy on 05/01/2016. Surgical consultation with Dr. Avila on 05/15/2016. Based on her initial clinical stage she would be a candidate for chest wall radiation therapy. - Patient Self-Reported Symptoms SR respiratory issues: Cough, Mucous - Additional ROS Additional ROS: Review of systems General: No fever or chills. HEENT: No headaches, vision change, dental pain or dysphagia. Respiratory: No cough or dyspnea. Cardiac: No chest pain, PND or orthopnea. GI: Negative. : Negative. Musculoskeletal: As above. Neurologic: Negative. Home Medications and Allergies Home Medications Medication Instructions Recorded Confirmed Type OMEGA-3 FATTY ACIDS (FISH OIL) 500 mg PO Q DAY #0 04/24/16 01/12/18 History naproxen 250 mg PO 1-2XD #0 07/14/16 01/12/18 History Lacto.acidophilus-Bif.animalis 1 cap PO DAILY 12/15/17 01/12/18 History [Probiotic] loratadine [Claritin] 10 mg PO DAILY PRN 12/15/17 01/12/18 History multivitamin 1 tab PO DAILY 12/15/17 01/12/18 History vitamin B complex 1 tab PO DAILY 12/15/17 01/12/18 History Allergies Allergy/AdvReac Type Severity Reaction Status Date / Time Sulfa (Sulfonamide Allergy Unknown Verified 12/15/17 11:04 Antibiotics) [SULFA (SULFONAMIDE ANTIBIOTICS)] Exam Vital signs: Last Vital Signs Temp 98.2 F 12/15/17 10:43 Pulse 65 12/15/17 10:43 Resp 17 12/15/17 10:43 BP 133/80 H 12/15/17 10:43 Pulse Ox 100 12/15/17 10:43 - Constitutional positive no acute distress, positive thin, positive cooperative - Routine HEENT Exam Head: Present: normocephalic, atraumatic Eye: Present: EOMI, PERRL - Routine Skin Exam Absent: rash - Routine Neurological Exam Present: alert, oriented X3, moving all extremities, normal speech. Absent: abnormal gait - Routine Psychiatric Exam Present: normal affect, normal thought process, cooperative, anxious. Absent: depressed
[2018-01-12 15:51] VITALS: BP 135/77; PULSE 79; RESP 18; TEMP 36.4; O2SAT 100
[2018-01-26 15:52] VITALS: BP 128/76; PULSE 78; RESP 17; TEMP 37.1; O2SAT 99
--- NOTE | 2018-01-26 16:20 | ONC.PN ---
Assessment and Plan - Time Spent with Patient IMPRESSION: 1. 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 Completed neoadjuvant chemotherapy with dose dense Adriamycin and Cytoxan x4 cycles followed by weekly paclitaxel/carboplatin on May 01, 2016. Was scheduled for mastectomy July 21, 2016 but she chose to defer surgery at that time. Recently returned in November after no treatment or follow-up for over a year with significant tumor regrowth. Staging continues to show no evidence of metastatic spread. Bone scan December 27, 2017 shows no suspicious uptake to suggest osseous metastases. Increased uptake in the lower lumbar spine and in the right hip most likely degenerative in nature. CT chest/abdomen/pelvis with contrast December 28, 2017 shows loculated fluid collection within the medial left breast but no axillary or supraclavicular adenopathy by size criteria. No definite evidence for metastatic disease by CT. 2. Pain secondary to above. 3. Osteopenia. 4. Anemia, normocytic. 5. Anxiety. 6. Recent pneumonia, treated and resolved. I reviewed the findings and clinical concerns with her today. Tumor has enlarged significantly since my last exam. She is having significant pain and at risk for skin breakdown and increased drainage in bleeding without prompt treatment. We reviewed treatment options and she would like to proceed with chemotherapy as planned. I would recommend starting treatment as soon as possible. Given her previous treatment, significant clinical response and apparent tolerance of the regimen I would recommend retreatment with paclitaxel and carboplatin. She understands the potential risk of cardiomyopathy with further anthracycline based chemotherapy. Other systemic options would include capecitabine as well as others. Ideally, we would like to see a prompt an early response to treatment. She denies any residual symptoms of neuropathy at this time other than minor symptoms in her left hand which she attributes to the local tumor rather than her previous chemotherapy. She is also scheduled for biopsy of the left breast mass on February 07 which is being done to confirm it is still HER2 negative. I reviewed side effects and potential toxicities for treatment with paclitaxel and carboplatin. These include but are not limited to: Fatigue, alopecia, mucositis, nausea, vomiting, abdominal pain, weight loss, neutropenia with risk of sepsis or , anemia and potential need for transfusion, thrombocytopenia and risk for hemorrhage or stroke, fatigue, malaise, headache, depression, rash, phlebitis, thromboembolic complications including DVT, pulmonary embolus or stroke, hypersensitivity reaction or anaphylaxis, pneumonitis, neuropathy, extravasation injury, colitis, constipation and other potential concerns. She voices understanding, accepts the side effects and risks discussed and consents to treatment as outlined. PLAN: 1. CBC, CMP, CEA, CA 27.29 today. 2. PICC line placement. 3. Meet with infusion nurse for teaching, scheduling and orientation. 4. Follow up with Dr. Wiseman for biopsy as planned. 5. Orders for paclitaxel 80 mg/m2 with carboplatin (AUC 2) IV every 7 days. Anticipate starting treatment in the next few days. 6. Dexamethasone 20 mg p.o. 12 hr prior to 1st paclitaxel. Standard premedication with steroids, Benadryl and ranitidine prior to treatment. 7. Mouth rinses and neutropenic precautions. 8. Filgrastim support if indicated. 9. Transfuse RBCs or platelets if needed. 10. Monitor for neutropenic fever, symptomatic side effects, neuropathy, etc. 11. Return appointment in 2 weeks. 12. CBC, CMP weekly. CEA and CA 27.29 every 3 weeks. 13. Anticipate left mastectomy after neoadjuvant chemotherapy response. DICTATED BY DANIELITO LAMAR MD MEDICAL ONCOLOGY AND HEMATOLOGY. PN -Subjective Interval history: Hematology/oncology progress note Patient name: Lisa Barton Date of service: January 12, 2018 Date of : 1965 PCP: Nguyen PRAKASH Identification: Ms Barton is a 52-year-old woman with triple negative carcinoma of the left breast diagnosed October 09, 2015, grade 3/3, ER negative, GA negative, HER2 negative. Interval history: She returns in follow-up today to review recent imaging studies. She was originally diagnosed with core needle biopsy of the left breast October 09, 2015. Completed neoadjuvant chemotherapy with 4 cycles of AC followed by paclitaxel and carboplatin weekly for approximately 12 weeks. Clinic note suggest a significant response and she was referred for consideration of interval mastectomy. She completed neoadjuvant chemotherapy on May 01, 2016. Had consultation with Dr. Avila on May 15, 2016. Unfortunately, she did not follow up for surgery and was lost to follow-up until November 2016. At that time she was referred for biopsy by Corine GALLO but did not follow-up for this or return to clinic in tail November 2017. When most recently seen here in clinic last month she was noted to have a large fungating mass arising from the left breast which she estimated to be similar in size to the size at presentation prior to her neoadjuvant therapy. After evaluation here in clinic, we referred her for restaging with CT and bone scan, lab work and referred her to a breast surgeon. She returns today to review the results. She met with Dr. Wiseman in [facility] yesterday and reviewed the imaging results and potential plan for surgical resection. Dr. Wiseman is understandably concerned about whether resection could be accomplished at this time without difficulty with surgical closure as well as chest wall margin. She has recommended additional neoadjuvant therapy in an attempt to reduce the size and extent of the tumor and allow her to resect the residual mass. Past Medical History The patient's past medical history is significant for: [1) left-sided invasive triple negative breast cancer. Diagnosis confirmed on core needle biopsy dated 10/09/2015. Pathology confirming invasive mammary carcinoma, poorly differentiated, with a Nagi histological grade 3 out of 3, and a mitotic rate of 3. No in situ component was seen, no LV I was identified. Longest diameter was 3.5 mm. Immunostains were ER GA and HER-2 negative. Clinical staging workup has included CT of the chest on the pelvis on 10/29/2015. This reported a 88 x 50 ovoid peripherally enhancing mass in the right breast. No other disease was otherwise reported. Bone scan on 11/22/2015 reporting no evidence of osseous metastasis. Ultrasound of the left axilla ordered on 12/05/2015. Clinically the breast lesion measured 6 cm in greatest diameter. After 4 cycles of AC chemotherapy the left breast lesion measures 2 x 3 cm on clinical exam (01/23/2016). Baseline CEA on 10/29/2015 normal at 2.6, CA-27-29 of 54, , CA 15-3 at 46 . TREATMENT PLAN: Neoadjuvant chemotherapy, surgery, radiation therapy. Treatment goals are curative. Patient started neoadjuvant chemotherapy on 11/19/2015 with a regimen of dose dense Adriamycin and Cytoxan given every 2 weeks for total of 4 cycles. This will be followed by weekly paclitaxel and carboplatin AUC of 4 given every third week. No indication to restage her until completion of chemotherapy given the superficial location of her lesion. Adriamycin and cyclophosphamide at 60 and 600 mg/m? ?4 were administered without dose reductions. Patient required a 20% dose reduction of her carboplatin and paclitaxel starting cycle 1 week 2. Patient completed therapy on 05/01/2016. Surgical consultation with Dr. Avila on 05/15/2016. Based on her initial clinical stage she would be a candidate for chest wall radiation therapy. - Patient Self-Reported Symptoms SR respiratory issues: Cough, Mucous Home Medications and Allergies Home Medications Medication Instructions Recorded Confirmed Type OMEGA-3 FATTY ACIDS (FISH OIL) 500 mg PO Q DAY #0 04/24/16 01/12/18 History naproxen 250 mg PO 1-2XD #0 07/14/16 01/12/18 History Lacto.acidophilus-Bif.animalis 1 cap PO DAILY 12/15/17 01/12/18 History [Probiotic] loratadine [Claritin] 10 mg PO DAILY PRN 12/15/17 01/12/18 History multivitamin 1 tab PO DAILY 12/15/17 01/12/18 History vitamin B complex 1 tab PO DAILY 12/15/17 01/12/18 History Allergies Allergy/AdvReac Type Severity Reaction Status Date / Time Sulfa (Sulfonamide Allergy Unknown Verified 12/15/17 11:04 Antibiotics) [SULFA (SULFONAMIDE ANTIBIOTICS)] Exam Vital signs: Last Vital Signs Temp 98.8 F 01/26/18 15:52 Pulse 78 01/26/18 15:52 Resp 17 01/26/18 15:52 BP 128/76 H 01/26/18 15:52 Pulse Ox 99 01/26/18 15:52
--- NOTE | 2018-01-26 16:37 | P.PNONC_ITS ---
Assessment and Plan - Time Spent with Patient IMPRESSION: 1. 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 Completed neoadjuvant chemotherapy with dose dense Adriamycin and Cytoxan x4 cycles followed by weekly paclitaxel/ carboplatin on May 01, 2016. Was scheduled for mastectomy July 21, 2016 but she chose to defer surgery at that time. Recently returned in November after no treatment or follow-up for over a year with significant tumor regrowth. Staging continues to show no evidence of metastatic spread. Bone scan December 27, 2017 shows no suspicious uptake to suggest osseous metastases. Increased uptake in the lower lumbar spine and in the right hip most likely degenerative in nature. CT chest/abdomen/pelvis with contrast December 28, 2017 shows loculated fluid collection within the medial left breast but no axillary or supraclavicular adenopathy by size criteria. No definite evidence for metastatic disease by CT. 2. Pain secondary to above. 3. Osteopenia. 4. Anemia, normocytic. 5. Anxiety. 6. Recent pneumonia, treated and resolved. I reviewed the findings and clinical concerns with her today. Tumor has enlarged significantly since my last exam. She is having significant pain and at risk for skin breakdown and increased drainage in bleeding without prompt treatment. We reviewed treatment options and she would like to proceed with chemotherapy as planned. I would recommend starting treatment as soon as possible. Given her previous treatment, significant clinical response and apparent tolerance of the regimen I would recommend retreatment with paclitaxel and carboplatin. She understands the potential risk of cardiomyopathy with further anthracycline based chemotherapy. Other systemic options would include capecitabine as well as others. Ideally, we would like to see a prompt an early response to treatment. She denies any residual symptoms of neuropathy at this time other than minor symptoms in her left hand which she attributes to the local tumor rather than her previous chemotherapy. She is also scheduled for biopsy of the left breast mass on February 07 which is being done to confirm it is still HER2 negative. I reviewed side effects and potential toxicities for treatment with paclitaxel and carboplatin. These include but are not limited to: Fatigue, alopecia, mucositis, nausea, vomiting, abdominal pain, weight loss, neutropenia with risk of sepsis or , anemia and potential need for transfusion, thrombocytopenia and risk for hemorrhage or stroke, fatigue, malaise, headache, depression, rash , phlebitis, thromboembolic complications including DVT, pulmonary embolus or stroke, hypersensitivity reaction or anaphylaxis, pneumonitis, neuropathy, extravasation injury, colitis, constipation and other potential concerns. She voices understanding, accepts the side effects and risks discussed and consents to treatment as outlined. PLAN: 1. CBC, CMP, CEA, CA 27.29 today. 2. PICC line placement. 3. Meet with infusion nurse for teaching, scheduling and orientation. 4. Follow up with Dr. Wiseman for biopsy as planned. 5. Orders for paclitaxel 80 mg/m2 with carboplatin (AUC 2) IV every 7 days. Anticipate starting treatment in the next few days. 6. Dexamethasone 20 mg p.o. 12 hr prior to 1st paclitaxel. Standard premedication with steroids, Benadryl and ranitidine prior to treatment. 7. Mouth rinses and neutropenic precautions. 8. Filgrastim support if indicated. 9. Transfuse RBCs or platelets if needed. 10. Monitor for neutropenic fever, symptomatic side effects, neuropathy, etc. 11. Return appointment in 2 weeks. 12. CBC, CMP weekly. CEA and CA 27.29 every 3 weeks. 13. Anticipate left mastectomy after neoadjuvant chemotherapy response. DICTATED BY DANIELITO LAMAR MD MEDICAL ONCOLOGY AND HEMATOLOGY. PN -Subjective Interval history: Hematology/oncology progress note Patient name: Lisa Barton Date of service: January 12, 2018 Date of : 1965 PCP: Nguyen PRAKASH Identification: Ms Barton is a 52-year-old woman with triple negative carcinoma of the left breast diagnosed October 09, 2015, grade 3/3, ER negative, PA negative, HER2 negative. Interval history: She returns in follow-up today to review recent imaging studies. She was originally diagnosed with core needle biopsy of the left breast October 09, 2015. Completed neoadjuvant chemotherapy with 4 cycles of AC followed by paclitaxel and carboplatin weekly for approximately 12 weeks. Clinic note suggest a significant response and she was referred for consideration of interval mastectomy. She completed neoadjuvant chemotherapy on May 01, 2016. Had consultation with Dr. Avila on May 15, 2016. Unfortunately, she did not follow up for surgery and was lost to follow-up until November 2016. At that time she was referred for biopsy by Corine GALLO but did not follow-up for this or return to clinic in tail November 2017. When most recently seen here in clinic last month she was noted to have a large fungating mass arising from the left breast which she estimated to be similar in size to the size at presentation prior to her neoadjuvant therapy. After evaluation here in clinic, we referred her for restaging with CT and bone scan, lab work and referred her to a breast surgeon. She returns today to review the results. She met with Dr. Wiseman in [facility] yesterday and reviewed the imaging results and potential plan for surgical resection. Dr. Wiseman is understandably concerned about whether resection could be accomplished at this time without difficulty with surgical closure as well as chest wall margin. She has recommended additional neoadjuvant therapy in an attempt to reduce the size and extent of the tumor and allow her to resect the residual mass. Past Medical History The patient's past medical history is significant for: [1) left-sided invasive triple negative breast cancer. Diagnosis confirmed on core needle biopsy dated 10/09/2015. Pathology confirming invasive mammary carcinoma, poorly differentiated, with a Nagi histological grade 3 out of 3, and a mitotic rate of 3. No in situ component was seen, no LV I was identified. Longest diameter was 3.5 mm. Immunostains were ER PA and HER-2 negative. Clinical staging workup has included CT of the chest on the pelvis on 2015. This reported a 88 x 50 ovoid peripherally enhancing mass in the right breast. No other disease was otherwise reported. Bone scan on 11/22/2015 reporting no evidence of osseous metastasis. Ultrasound of the left axilla ordered on 12/05/2015. Clinically the breast lesion measured 6 cm in greatest diameter. After 4 cycles of AC chemotherapy the left breast lesion measures 2 x 3 cm on clinical exam (01/23/2016). Baseline CEA on 10/29/2015 normal at 2.6, CA-27-29 of 54, , CA 15-3 at 46 . TREATMENT PLAN: Neoadjuvant chemotherapy, surgery, radiation therapy. Treatment goals are curative. Patient started neoadjuvant chemotherapy on 11/19/2015 with a regimen of dose dense Adriamycin and Cytoxan given every 2 weeks for total of 4 cycles. This will be followed by weekly paclitaxel and carboplatin AUC of 4 given every third week. No indication to restage her until completion of chemotherapy given the superficial location of her lesion. Adriamycin and cyclophosphamide at 60 and 600 mg/m? ?4 were administered without dose reductions. Patient required a 20% dose reduction of her carboplatin and paclitaxel starting cycle 1 week 2. Patient completed therapy on 05/01/2016. Surgical consultation with Dr. Avila on 05/15/2016. Based on her initial clinical stage she would be a candidate for chest wall radiation therapy. - Patient Self-Reported Symptoms SR respiratory issues: Cough, Mucous Home Medications and Allergies Home Medications Medication Instructions Recorded Confirmed Type OMEGA-3 FATTY ACIDS (FISH OIL) 500 mg PO Q DAY #0 04/24/16 01/12/18 History naproxen 250 mg PO 1-2XD #0 07/14/16 01/12/18 History Lacto.acidophilus-Bif.animalis 1 cap PO DAILY 12/15/17 01/12/18 History [Probiotic] loratadine [Claritin] 10 mg PO DAILY PRN 12/15/17 01/12/18 History multivitamin 1 tab PO DAILY 12/15/17 01/12/18 History vitamin B complex 1 tab PO DAILY 12/15/17 01/12/18 History Allergies Allergy/AdvReac Type Severity Reaction Status Date / Time Sulfa (Sulfonamide Allergy Unknown Verified 12/15/17 11:04 Antibiotics) [SULFA (SULFONAMIDE ANTIBIOTICS)] Exam Vital signs: Last Vital Signs Temp 98.8 F 01/26/18 15:52 Pulse 78 01/26/18 15:52 Resp 17 01/26/18 15:52 BP 128/76 H 01/26/18 15:52 Pulse Ox 99 01/26/18 15:52
--- NOTE | 2018-01-27 11:48 | ONC.NAV ---
Description: Transfer to [facility] Activity: Due to pt's insurance and this clinic's provider transitions, this SILK SOAKER faxed pt's records to [facility] in order for her to continue to be seen consistently by a provider. She is already getting her biopsy done at [facility] as well. Called Alanna at [facility], explained the transfer and that I just faxed the records. Called pt and explained this process, provided their contact information, and shared that we are keeping track of our patients that we are needing to temporarity transfer, and that we will call her once our own new providers are fully ready to go. She expressed understanding.
--- NOTE | 2018-04-13 08:29 | ONC.SCHED ---
Per Rubi, Breast Navigator I schedule Lisa for follow up here with Dr. Andujar. I went to pre-authorize the chemo to be proactive and the insurance company [employer] asked me right before submitting auth if we were [facility] credentialed and Dr. Andujar is not. I called Rubi back to let her know that Lisa needed to stay at [facility] until Dr. Andujar could see her.
--- NOTE | 2018-05-31 13:02 | ONC.NAV ---
Description: Care Coordination with Scheduling Appt. Activity: Called pt and left a message that we are aware of her appt. to have her PICC placed on 06/15, and we have tentatively scheduled her to see Dr. Andujar on 06/17 at 11:00am. Requested a return call to confirm appt.
[2018-06-17 16:16] VITALS: BP 135/80; PULSE 77; RESP 18; TEMP 36.4; O2SAT 100
--- NOTE | 2018-06-17 16:25 | ONC.PN ---
PN -Subjective Interval history: Lisa Llamas is a 52-year-old female. She was diagnosed with localized advanced triple negative breast cancer (TNBC) of the left breast in 10/09/2015. The primary tumor measured 6 x 6 cm at 10:00. Patient underwent neoadjuvant chemotherapy with dose dense AC for 4 cycles followed by weekly paclitaxel/carboplatin completed 05/01/2017. Patient's left breast mass shrunk to the size of pea. However patient herself chose not to proceed with scheduled surgery, and did not came back for follow-up. In January 2018, patient was re-evaluated because of re-growth of the left breast tumor with skin ulceration and smells. Restaging studies showed no evidence of metastasis in the bone or other locations on CT scan of the chest abdomen and pelvis. She underwent re-biopsy of the left breast cancer on 02/07/2018 and it was confirmed to be TNBC. Preoperative chemotherapy was recommended in anticipation of difficulty closing the big defect if surgery resection upfront. Therefore patient was started on weekly carboplatin (AUC 2) and paclitaxel (80 mg/m2) on 02/22/[address] [facility] ([place], [place]). Up until today, the patient has received about 5 weekly treatments on 02/22/2018, 03/01/2018, 03/08/2018, 03/15/2018 and 03/22/2018 respectively. Patient said that the left shoulder pain and the left shoulder range of movement improved after starting the chemotherapy. 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 Recently patient again noticed that the lump is growing and she is having recurrent left shoulder stiffness and left shoulder pain. Therefore she presented here today for discussion of resuming the chemotherapy. She denies any headache or double vision or blurred vision. Patient denies any shortness of breath. Patient patient denies any nausea or vomiting. She denies any other new onset pain. - Additional ROS All systems PM: reviewed and no additional remarkable complaints except as stated Home Medications and Allergies Home Medications Medication Instructions Recorded Confirmed Type OMEGA-3 FATTY ACIDS (FISH OIL) 500 mg PO Q DAY #0 04/24/16 06/14/18 History Lacto.acidophilus-Bif.animalis 1 cap PO DAILY 12/15/17 06/14/18 History [Probiotic] loratadine [Claritin] 10 mg PO DAILY PRN 12/15/17 06/14/18 History multivitamin 1 tab PO DAILY 12/15/17 06/14/18 History vitamin B complex 1 tab PO DAILY 12/15/17 06/14/18 History cephalexin 500 mg capsule 500 mg PO BID 10 Days #20 cap 06/14/18 06/17/18 Rx mupirocin 2 % topical ointment 1 applic TOP BID #30 gram 06/14/18 Rx Allergies Allergy/AdvReac Type Severity Reaction Status Date / Time Sulfa (Sulfonamide Allergy Unknown Verified 06/14/18 09:20 Antibiotics) [SULFA (SULFONAMIDE ANTIBIOTICS)] Exam Vital signs: Last Vital Signs Temp 97.6 F 06/17/18 16:16 Pulse 77 06/17/18 16:16 Resp 18 06/17/18 16:16 BP 135/80 06/17/18 16:16 Pulse Ox 100 06/17/18 16:16 ECOG 1 Narrative: Constitutional: WDWN, NAD, thin, pleasant and cooperative, came in by herself. HEENT: NCAT, EOMI, PERRLA, anicteric sclera, no hearing difficulty; oral mucus membrane moist and without ulcers. Neck: Supple, symmetrical, and tracheal midline; No palpable thyromegaly and no palpable lymph nodes. Respiratory: No use of accessory muscles. Clear to auscultation, and no wheezes or rales or rubs. Cardiovascular: Regular rate and rhythm, S1 and S2 normal, no murmurs gallops or rubs. No JVD. No pitting edema of lower extremities. Abdomen: Soft, nontender, non-distended, bowel sounds normal, no palpable organomegaly, no hernia, no palpable masses. Lower extremities: No palpable pedal edema. Lymphatic: no palpable lymph nodes in the neck, axillae, or groins. Neurological: Awake and alert and oriented x3. CN II-XII grossly intact. No focal motor or sensory deficit. Psychiatric: Good judgment, good insight, normal affect, normal thought process, cooperative, no depression, no anxiety. Breast exam: right: No nipple retraction, no skin changes, no palpable mass/nodules no palpable lymph nodes in the right axilla. Left: A irregularly shaped semi fixed lobulated mass identified at the left upper inner quadrant with scab formation and skin discoloration. No open wounds. No secretions. Mild skin erythema around noted. Results - Labs Pending. Assessment and Plan (1) Triple negative malignant neoplasm of breast Problem details: 1. Localized advanced left triple negative breast cancer diagnosed on 10/09/2015. She underwent neoadjuvant chemotherapy with dose dense AC for 4 cycles followed by weekly paclitaxel/carboplatin completed 05/01/2017. Patient's left breast mass has decreased significantly to the size of a pea, but she chose not to proceed with scheduled surgery, and lost to follow-up. 2. Recurrent locally with skin ulceration and smells at the left breat in 01/2018, confirmed by re-biopy to be TNBC. Restaging CAP showed no distant metastasis. Preoperative chemotherapy was recommended due to concern to close the defect because of the size of the tumor. 3. Weekly carboplatin and paclitaxel 02/22/[address] [facility] ([place], [place]). Assessment: Patient is well aware of the diagnosis of her triple negative breast cancer and the risk of not complying with the treatment plan. Patient noticed that the cancer is growing again with associated symptoms of the left shoulder. I talked with her that she should definitely put her treatment of the breast cancer the top priority over anything else. At present, we have not seen any evidence of distant metastasis yet. And goal of the treatment is with intention of cure. I explained to the patient that if the underlying breast cancer invaded the chest wall or if there was any evidence of distant metastasis, her breast cancer would be considered incurable. Patient voiced understanding and expressed her intention to comply with the treatment planning. I talked with the patient that I will resume the treatment next Wednesday before the [place]. Plan 1. Resume Carbo(AUC2)/Paclitaxol(80 mg/m2) weekly, 06/20/2018, it will be her week 6 treatment, CBC, CMP 2. Continue the treatment weekly, labs per treatment plan. 3. RTC MD visit on week 8 treatment for evaluation. CBC, CMP.
--- NOTE | 2018-06-17 16:44 | P.PNONC_ITS ---
PN -Subjective Interval history: Lisa Llamas is a 52-year-old female. She was diagnosed with localized advanced triple negative breast cancer (TNBC) of the left breast in . The primary tumor measured 6 x 6 cm at 10:00. Patient underwent neoadjuvant chemotherapy with dose dense AC for 4 cycles followed by weekly paclitaxel/carboplatin completed 05/01/2017. Patient's left breast mass shrunk to the size of pea. However patient herself chose not to proceed with scheduled surgery, and did not came back for follow-up. In January 2018, patient was re-evaluated because of re-growth of the left breast tumor with skin ulceration and smells. Restaging studies showed no evidence of metastasis in the bone or other locations on CT scan of the chest abdomen and pelvis. She underwent re-biopsy of the left breast cancer on 2017 and it was confirmed to be TNBC. Preoperative chemotherapy was recommended in anticipation of difficulty closing the big defect if surgery resection upfront. Therefore patient was started on weekly carboplatin (AUC 2) and paclitaxel (80 mg/m2) on 02/22/2018 at [facility]. Up until today, the patient has received about 5 weekly treatments on 02/22/2018 , 03/01/2018, 03/08/2018, 03/15/2018 and 03/22/2018 respectively. Patient said that the left shoulder pain and the left shoulder range of movement improved after starting the chemotherapy. 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 Recently patient again noticed that the lump is growing and she is having recurrent left shoulder stiffness and left shoulder pain. Therefore she presented here today for discussion of resuming the chemotherapy. She denies any headache or double vision or blurred vision. Patient denies any shortness of breath. Patient patient denies any nausea or vomiting. She denies any other new onset pain. - Additional ROS All systems PM: reviewed and no additional remarkable complaints except as stated Home Medications and Allergies Home Medications Medication Instructions Recorded Confirmed Type OMEGA-3 FATTY ACIDS (FISH OIL) 500 mg PO Q DAY #0 04/24/16 06/14/18 History Lacto.acidophilus-Bif.animalis 1 cap PO DAILY 12/15/17 06/14/18 History [Probiotic] loratadine [Claritin] 10 mg PO DAILY PRN 12/15/17 06/14/18 History multivitamin 1 tab PO DAILY 12/15/17 06/14/18 History vitamin B complex 1 tab PO DAILY 12/15/17 06/14/18 History cephalexin 500 mg capsule 500 mg PO BID 10 Days #20 cap 06/14/18 06/17/18 Rx mupirocin 2 % topical ointment 1 applic TOP BID #30 gram 06/14/18 Rx Allergies Allergy/AdvReac Type Severity Reaction Status Date / Time Sulfa (Sulfonamide Allergy Unknown Verified 06/14/18 09:20 Antibiotics) [SULFA (SULFONAMIDE ANTIBIOTICS)] Exam Vital signs: Last Vital Signs Temp 97.6 F 06/17/18 16:16 Pulse 77 06/17/18 16:16 Resp 18 06/17/18 16:16 BP 135/80 06/17/18 16:16 Pulse Ox 100 06/17/18 16:16 ECOG 1 Narrative: Constitutional: WDWN, NAD, thin, pleasant and cooperative, came in by herself. HEENT: NCAT, EOMI, PERRLA, anicteric sclera, no hearing difficulty; oral mucus membrane moist and without ulcers. Neck: Supple, symmetrical, and tracheal midline; No palpable thyromegaly and no palpable lymph nodes. Respiratory: No use of accessory muscles. Clear to auscultation, and no wheezes or rales or rubs. Cardiovascular: Regular rate and rhythm, S1 and S2 normal, no murmurs gallops or rubs. No JVD. No pitting edema of lower extremities. Abdomen: Soft, nontender, non-distended, bowel sounds normal, no palpable organomegaly, no hernia, no palpable masses. Lower extremities: No palpable pedal edema. Lymphatic: no palpable lymph nodes in the neck, axillae, or groins. Neurological: Awake and alert and oriented x3. CN II-XII grossly intact. No focal motor or sensory deficit. Psychiatric: Good judgment, good insight, normal affect, normal thought process , cooperative, no depression, no anxiety. Breast exam: right: No nipple retraction, no skin changes, no palpable mass/ nodules no palpable lymph nodes in the right axilla. Left: A irregularly shaped semi fixed lobulated mass identified at the left upper inner quadrant with scab formation and skin discoloration. No open wounds. No secretions. Mild skin erythema around noted. Results - Labs Pending. Assessment and Plan (1) Triple negative malignant neoplasm of breast Problem details: 1. Localized advanced left triple negative breast cancer diagnosed on 2015. She underwent neoadjuvant chemotherapy with dose dense AC for 4 cycles followed by weekly paclitaxel/carboplatin completed 05/01/2017. Patient's left breast mass has decreased significantly to the size of a pea, but she chose not to proceed with scheduled surgery, and lost to follow-up. 2. Recurrent locally with skin ulceration and smells at the left breat in 2017, confirmed by re-biopy to be TNBC. Restaging CAP showed no distant metastasis. Preoperative chemotherapy was recommended due to concern to close the defect because of the size of the tumor. 3. Weekly carboplatin and paclitaxel 02/22/2018 at [facility]. Assessment: Patient is well aware of the diagnosis of her triple negative breast cancer and the risk of not complying with the treatment plan. Patient noticed that the cancer is growing again with associated symptoms of the left shoulder. I talked with her that she should definitely put her treatment of the breast cancer the top priority over anything else. At present, we have not seen any evidence of distant metastasis yet. And goal of the treatment is with intention of cure. I explained to the patient that if the underlying breast cancer invaded the chest wall or if there was any evidence of distant metastasis, her breast cancer would be considered incurable. Patient voiced understanding and expressed her intention to comply with the treatment planning. I talked with the patient that I will resume the treatment next Wednesday before the [place]. Plan 1. Resume Carbo(AUC2)/Paclitaxol(80 mg/m2) weekly, 06/20/2018, it will be her week 6 treatment, CBC, CMP 2. Continue the treatment weekly, labs per treatment plan. 3. RTC MD visit on week 8 treatment for evaluation. CBC, CMP.
[2018-07-01 09:29] LABS: Add Manual Diff / Slide Review NO; Basophils Percent Auto 1.1 % (0-2); Eosinophils Percent Auto 11.4 % (2-4); Hematocrit 31.1 % (36-46); Hemoglobin 10.7 g/dL (12.0-16.0); Lymphocytes Percent Auto 16.8 % (25-40); Mean Corpuscular HGB Conc 34.4 % (30-36); Mean Corpuscular Hemoglobin 32.7 PG (26-34); Monocytes Percent Auto 5.9 % (3-14); Neutrophils Absolute Auto 4400 /uL (1500-7000); Neutrophils Percent Auto 64.8 % (50-75); Platelet Count 381 X10^3/uL (150-400); Red Blood Cell Count 3.27 X10^6/uL (4.0-5.2); Red Cell Distribution Width 12.4 % (11.6-14.8); White Blood Cell Count 6.8 X10^3/uL (4.5-11.0)
--- NOTE | 2018-07-01 09:31 | ONC.APRN.PN ---
PN -Subjective Interval history: Lisa Llamas is a 52-year-old female. She was diagnosed with localized advanced triple negative breast cancer (TNBC) of the left breast in 10/09/2015. The primary tumor measured 6 x 6 cm at 10:00. Patient underwent neoadjuvant chemotherapy with dose dense AC for 4 cycles followed by weekly paclitaxel/carboplatin completed 05/01/2017. Patient's left breast mass shrunk to the size of pea. However patient herself chose not to proceed with scheduled surgery, and did not came back for follow-up. In January 2018, patient was re-evaluated because of re-growth of the left breast tumor with skin ulceration and smells. Restaging studies showed no evidence of metastasis in the bone or other locations on CT scan of the chest abdomen and pelvis. She underwent re-biopsy of the left breast cancer on 02/07/2018 and it was confirmed to be TNBC. Preoperative chemotherapy was recommended in anticipation of difficulty closing the big defect if surgery resection upfront. Therefore patient was started on weekly carboplatin (AUC 2) and paclitaxel (80 mg/m2) on 02/22/2018 at [facility]. Previously the patient has received about 5 weekly treatments at [facility] on 02/22/2018, 03/01/2018, 03/08/2018, 03/15/2018 and 03/22/2018 respectively. Patient said that the left shoulder pain and the left shoulder range of movement improved after starting the chemotherapy. 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 Recently patient again noticed that the lump is growing and she is having recurrent left shoulder stiffness and left shoulder pain. Therefore she presented at [facility] 06/17/2018 for discussion of resuming the chemotherapy. At that time She denied any headache or double vision or blurred vision. Patient denies any shortness of breath. Also deniesdany nausea or vomiting. The patient presents today 07/01/2018 at [facility] in [place], she has transitioned her care here as it is more convenient for her. She states overall she feels as though she is tolerating treatment quite well. She does report some fatigue states I cannot do as much as I usually do. 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 She denies cough, fever, chills. No new pain, no new lumps or bumps. No issues with bladder or bowels. No numbness or tingling in her hands or feet. She does have some dry skin on her hands for which she has a cream she has started to use prescribed by her primary care provider, the patient is uncertain of the name. However she states it has been quite helpful. No headaches. No unexplained bleeding or bruising. Appetite is stable, no nausea, vomiting. She reports the pain in her left shoulder is better. - Patient Self-Reported Symptoms SR respiratory issues: Cough, Mucous Home Medications and Allergies Home Medications Medication Instructions Recorded Confirmed Type OMEGA-3 FATTY ACIDS (FISH OIL) 500 mg PO Q DAY #0 04/24/16 07/01/18 History Lacto.acidophilus-Bif.animalis 1 cap PO DAILY 12/15/17 07/01/18 History [Probiotic] loratadine [Claritin] 10 mg PO DAILY PRN 12/15/17 07/01/18 History multivitamin 1 tab PO DAILY 12/15/17 07/01/18 History vitamin B complex 1 tab PO DAILY 12/15/17 07/01/18 History mupirocin 2 % topical ointment 1 applic TOP BID #30 gram 06/14/18 07/01/18 Rx Allergies Allergy/AdvReac Type Severity Reaction Status Date / Time Sulfa (Sulfonamide Allergy Unknown Verified 06/14/18 09:20 Antibiotics) [SULFA (SULFONAMIDE ANTIBIOTICS)] Exam - Constitutional positive no acute distress, positive thin - Routine HEENT Exam Eye: Present: conjunctivae pink. Absent: conjunctival icterus, scleral injection ENT: Present: mucous membranes moist, oropharynx clear - Routine Neck Exam Present: supple, lymphadenopathy Comments: palpable submandibular node, right 1cm - Routine Chest/Breast/Axilla Exam Axillae: Absent: lymphadenopathy, mass, tenderness - Routine Respiratory Exam Present: Clear to auscultation bilaterally. Absent: rales, rhonchi, wheezes - Routine Cardiovascular Exam Present: RRR, S1, S2. Absent: murmur, gallop, rubs, JVD - Routine Abdominal Exam Present: soft, normoactive bowel sounds. Absent: tenderness, distended, organomegaly - Routine Extremities Exam Absent: edema, calf tenderness - Routine Skin Exam Present: intact, normal turgor. Absent: petechiae, rash - Routine Neurological Exam Present: alert, oriented X3 - Routine Psychiatric Exam Present: normal affect Assessment and Plan (1) Triple negative malignant neoplasm of breast Problem details: 1. Localized advanced left triple negative breast cancer diagnosed on 10/09/2015. She underwent neoadjuvant chemotherapy with dose dense AC for 4 cycles followed by weekly paclitaxel/carboplatin completed 05/01/2017. Patient's left breast mass has decreased significantly to the size of a pea, but she chose not to proceed with scheduled surgery, and lost to follow-up. 2. Recurrent locally with skin ulceration and smells at the left breat in 01/2018, confirmed by re-biopy to be TNBC. Restaging CAP showed no distant metastasis. Preoperative chemotherapy was recommended due to concern to close the defect because of the size of the tumor. 3. Weekly carboplatin and paclitaxel 02/22/2018 at [facility]. Assessment: Previous nore Dr Andujar: Patient is well aware of the diagnosis of her triple negative breast cancer and the risk of not complying with the treatment plan. Patient noticed that the cancer is growing again with associated symptoms of the left shoulder. I talked with her that she should definitely put her treatment of the breast cancer the top priority over anything else. At present, we have not seen any evidence of distant metastasis yet. And goal of the treatment is with intention of cure. I explained to the patient that if the underlying breast cancer invaded the chest wall or if there was any evidence of distant metastasis, her breast cancer would be considered incurable. Patient voiced understanding and expressed her intention to comply with the treatment planning. I talked with the patient that I will resume the treatment next Wednesday before the [place]. Pt presents today for consideration of C6D1 weekly carbo/taxol. My understanding is 12 cycles are planned. Tolerabilty thus far has been quite good with only grade 1 fatigue. However, on exam today the pt did have a palpable 1cm submandibular lymph node right neck. Pt states she was not aware of this and it is likely new. In review of Dr Hernandez most recent note no palpable neck adenopathy on exam. 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 She denies any URI symptoms on exam today. Most recent imaging was December 28, [address] with contrast which was without evidence of metastatic disease. No palpable axillary adenopathy today. I discussed with Dr Andujar who graciously accepted my phone call while he is on vacation and he agrees with repeat imaging therefor I will order CT of neck C/A/P DX breast CA with new palpable node. Pt is aware and agrees with above plan of care. It would be unlikely the pt to develop new disease while receiving chemotherapy however with new adenopathy cannot rule out. Plan 1. Green light today for C6D1 weekly carbo/taxol. CBC CMP unremarkable. Tumor markers are pending. 2. Schedule CT with contrast of Neck/C/A/P DX breast CA with new palpable node 3. RTC in one week for provider visit cbc cmp review imaging consideration of C7D1 weekly carbo/taxol (2) Cervical adenopathy Current visit: Yes Status: Acute New finding on exam today palpable 1 cm fixed node submandibular, right neck. This is new. We will schedule CT scan as detailed above.
--- NOTE | 2018-07-01 09:34 | P.PNONC_ITS ---
PN -Subjective Interval history: Lisa Llamas is a 52-year-old female. She was diagnosed with localized advanced triple negative breast cancer (TNBC) of the left breast in . The primary tumor measured 6 x 6 cm at 10:00. Patient underwent neoadjuvant chemotherapy with dose dense AC for 4 cycles followed by weekly paclitaxel/carboplatin completed 05/01/2017. Patient's left breast mass shrunk to the size of pea. However patient herself chose not to proceed with scheduled surgery, and did not came back for follow-up. In January 2018, patient was re-evaluated because of re-growth of the left breast tumor with skin ulceration and smells. Restaging studies showed no evidence of metastasis in the bone or other locations on CT scan of the chest abdomen and pelvis. She underwent re-biopsy of the left breast cancer on 2017 and it was confirmed to be TNBC. Preoperative chemotherapy was recommended in anticipation of difficulty closing the big defect if surgery resection upfront. Therefore patient was started on weekly carboplatin (AUC 2) and paclitaxel (80 mg/m2) on 02/22/2018 at [facility]. Previously the patient has received about 5 weekly treatments at [facility] on 02/22/2018, 03/01/2018, 03/08/2018, 03/15/2018 and 03/22/2018 respectively. Patient said that the left shoulder pain and the left shoulder range of movement improved after starting the chemotherapy. 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 Recently patient again noticed that the lump is growing and she is having recurrent left shoulder stiffness and left shoulder pain. Therefore she presented at [facility] 06/17/2018 for discussion of resuming the chemotherapy. At that time She denied any headache or double vision or blurred vision. Patient denies any shortness of breath. Also deniesdany nausea or vomiting. The patient presents today 07/01/2018 at [facility] in [place], she has transitioned her care here as it is more convenient for her. She states overall she feels as though she is tolerating treatment quite well. She does report some fatigue states I cannot do as much as I usually do. 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 She denies cough, fever, chills. No new pain, no new lumps or bumps. No issues with bladder or bowels. No numbness or tingling in her hands or feet. She does have some dry skin on her hands for which she has a cream she has started to use prescribed by her primary care provider, the patient is uncertain of the name. However she states it has been quite helpful. No headaches. No unexplained bleeding or bruising. Appetite is stable, no nausea, vomiting. She reports the pain in her left shoulder is better. - Patient Self-Reported Symptoms SR respiratory issues: Cough, Mucous Home Medications and Allergies Home Medications Medication Instructions Recorded Confirmed Type OMEGA-3 FATTY ACIDS (FISH OIL) 500 mg PO Q DAY #0 04/24/16 07/01/18 History Lacto.acidophilus-Bif.animalis 1 cap PO DAILY 12/15/17 07/01/18 History [Probiotic] loratadine [Claritin] 10 mg PO DAILY PRN 12/15/17 07/01/18 History multivitamin 1 tab PO DAILY 12/15/17 07/01/18 History vitamin B complex 1 tab PO DAILY 12/15/17 07/01/18 History mupirocin 2 % topical ointment 1 applic TOP BID #30 gram 06/14/18 07/01/18 Rx Allergies Allergy/AdvReac Type Severity Reaction Status Date / Time Sulfa (Sulfonamide Allergy Unknown Verified 06/14/18 09:20 Antibiotics) [SULFA (SULFONAMIDE ANTIBIOTICS)] Exam - Constitutional positive no acute distress, positive thin - Routine HEENT Exam Eye: Present: conjunctivae pink. Absent: conjunctival icterus, scleral injection ENT: Present: mucous membranes moist, oropharynx clear - Routine Neck Exam Present: supple, lymphadenopathy Comments: palpable submandibular node, right 1cm - Routine Chest/Breast/Axilla Exam Axillae: Absent: lymphadenopathy, mass, tenderness - Routine Respiratory Exam Present: Clear to auscultation bilaterally. Absent: rales, rhonchi, wheezes - Routine Cardiovascular Exam Present: RRR, S1, S2. Absent: murmur, gallop, rubs, JVD - Routine Abdominal Exam Present: soft, normoactive bowel sounds. Absent: tenderness, distended, organomegaly - Routine Extremities Exam Absent: edema, calf tenderness - Routine Skin Exam Present: intact, normal turgor. Absent: petechiae, rash - Routine Neurological Exam Present: alert, oriented X3 - Routine Psychiatric Exam Present: normal affect Assessment and Plan (1) Triple negative malignant neoplasm of breast Problem details: 1. Localized advanced left triple negative breast cancer diagnosed on 2015. She underwent neoadjuvant chemotherapy with dose dense AC for 4 cycles followed by weekly paclitaxel/carboplatin completed 05/01/2017. Patient's left breast mass has decreased significantly to the size of a pea, but she chose not to proceed with scheduled surgery, and lost to follow-up. 2. Recurrent locally with skin ulceration and smells at the left breat in 2017, confirmed by re-biopy to be TNBC. Restaging CAP showed no distant metastasis. Preoperative chemotherapy was recommended due to concern to close the defect because of the size of the tumor. 3. Weekly carboplatin and paclitaxel 02/22/2018 at [facility]. Assessment: Previous nore Dr Andujar: Patient is well aware of the diagnosis of her triple negative breast cancer and the risk of not complying with the treatment plan. Patient noticed that the cancer is growing again with associated symptoms of the left shoulder. I talked with her that she should definitely put her treatment of the breast cancer the top priority over anything else. At present , we have not seen any evidence of distant metastasis yet. And goal of the treatment is with intention of cure. I explained to the patient that if the underlying breast cancer invaded the chest wall or if there was any evidence of distant metastasis, her breast cancer would be considered incurable. Patient voiced understanding and expressed her intention to comply with the treatment planning. I talked with the patient that I will resume the treatment next Wednesday before the [place]. Pt presents today for consideration of C6D1 weekly carbo/taxol. My understanding is 12 cycles are planned. Tolerabilty thus far has been quite good with only grade 1 fatigue. However, on exam today the pt did have a palpable 1cm submandibular lymph node right neck. Pt states she was not aware of this and it is likely new. In review of Dr Hernandez most recent note no palpable neck adenopathy on exam. 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 She denies any URI symptoms on exam today. Most recent imaging was December 28, [address] with contrast which was without evidence of metastatic disease. No palpable axillary adenopathy today. I discussed with Dr Andujar who graciously accepted my phone call while he is on vacation and he agrees with repeat imaging therefor I will order CT of neck C/A/ P DX breast CA with new palpable node. Pt is aware and agrees with above plan of care. It would be unlikely the pt to develop new disease while receiving chemotherapy however with new adenopathy cannot rule out. Plan 1. Green light today for C6D1 weekly carbo/taxol. CBC CMP unremarkable. Tumor markers are pending. 2. Schedule CT with contrast of Neck/C/A/P DX breast CA with new palpable node 3. RTC in one week for provider visit cbc cmp review imaging consideration of C7D1 weekly carbo/taxol (2) Cervical adenopathy Current visit: Yes Status: Acute New finding on exam today palpable 1 cm fixed node submandibular, right neck. This is new. We will schedule CT scan as detailed above.
[2018-07-01 09:41] LABS: Alanine Aminotransferase 51 IU/L (9-52); Albumin Globulin Ratio 1.3 (1.0-2.8); Alkaline Phosphatase 77 U/L (38-126); Aspartate Aminotransferase 47 IU/L (14-36); Bilirubin Total 0.3 mg/dL (0.2-1.3); Blood Urea Nitrogen 4 mg/dL (7-17); Calcium 8.7 mg/dL (8.4-10.2); Carbon Dioxide 26 mmol/L (22-32); Chloride 95 mmol/L (98-107); Estimated Glomerular Filt Rate > 60.0 mL/min (>60); Glucose 93 mg/dL (70-100); HEMOLYSIS < 15 (0-50); Potassium 3.8 mmol/L (3.4-5.1); Sodium 132 mmol/L (137-145)
[2018-07-01 09:48] VITALS: BP 124/85; PULSE 78; RESP 18; TEMP 36.8; O2SAT 100
[2018-07-01 10:11] LABS: Carcinoembryonic Antigen 3.4 ng/mL (0.1-3.0)
[2018-07-01] MEDS: diphenhydrAMINE 25 MG TABLET PO (10:47)
[2018-07-01] MEDS: SODIUM CHLORIDE 0.9% 100 ML 21 ML IV (10:47)
[2018-07-01] MEDS: ACETAMINOPHEN 325 MG TABLET 650 MG PO (10:47)
[2018-07-01] MEDS: DEXAMETHASONE 10 MG/ML VIAL IV (10:48)
[2018-07-01] MEDS: ONDANSETRON 16 MG in SODIUM CHLORIDE 0.9% 50 ML 232 ML IV (11:10)
--- NOTE | 2018-07-01 11:33 | ONC.SCHED ---
Cat Scan- Per Magdalene at [facility] customer care codes [id number] do not need prior authorization. There is not a reference number for the call per Magdalene it is her name and todays date.
[2018-07-01] MEDS: FAMOTIDINE 20 MG/50 ML PIGGYBACK 200 MG IV (11:39)
[2018-07-01] MEDS: DEXTROSE 5% IV (12:13)
[2018-07-01] MEDS: PACLITAXEL IV (12:13)
[2018-07-01] MEDS: SODIUM CHLORIDE 0.9% IV (13:47)
[2018-07-01] MEDS: CARBOPLATIN IV (13:47)
[2018-07-04 23:46] LABS: Cancer Antigen 27.29 19 U/mL (< 38)
--- NOTE | 2018-07-07 08:24 | ONC.SCHED ---
per Madhavi at [facility] no pre auth required for CPT 30553 soft tissue neck Cat Scan.
[2018-07-08 08:03] LABS: Add Manual Diff / Slide Review NO; Basophils Percent Auto 0.4 % (0-2); Eosinophils Percent Auto 11.4 % (2-4); Hematocrit 30.1 % (36-46); Hemoglobin 10.5 g/dL (12.0-16.0); Lymphocytes Percent Auto 21.7 % (25-40); Mean Corpuscular Hemoglobin 32.9 PG (26-34); Mean Corpuscular Volume 94.2 fL (80-100); Monocytes Percent Auto 5.4 % (3-14); Neutrophils Absolute Auto 2700 /uL (1500-7000); Neutrophils Percent Auto 61.1 % (50-75); Platelet Count 342 X10^3/uL (150-400); Red Cell Distribution Width 12.4 % (11.6-14.8); White Blood Cell Count 4.4 X10^3/uL (4.5-11.0)
[2018-07-08 08:11] LABS: Alanine Aminotransferase 44 IU/L (9-52); Albumin 4.1 g/dL (3.5-5.0); Albumin Globulin Ratio 1.4 (1.0-2.8); Alkaline Phosphatase 66 U/L (38-126); Aspartate Aminotransferase 45 IU/L (14-36); Bilirubin Total 0.2 mg/dL (0.2-1.3); Blood Urea Nitrogen 4 mg/dL (7-17); Calcium 8.8 mg/dL (8.4-10.2); Carbon Dioxide 27 mmol/L (22-32); Chloride 98 mmol/L (98-107); Estimated Glomerular Filt Rate > 60.0 mL/min (>60); Glucose 88 mg/dL (70-100); HEMOLYSIS < 15 (0-50); Sodium 134 mmol/L (137-145); Total Protein 7.1 g/dL (6.3-8.2)
--- NOTE | 2018-07-08 08:25 | ONC.PN ---
PN -Subjective Interval history: Lisa Llamas is a 52-year-old female who presents today for Carboplatin/Paclitaxel cycle 7# treatment. She was diagnosed with left breast localized advanced triple negative breast cancer (TNBC) on 10/09/2015. The primary tumor measured 6 x 6 cm at 10:00. She underwent neoadjuvant dose dense AC x 4 cycles followed by weekly Paclitaxel/Carboplatin completed 05/01/2017. Patient's left breast mass shrunk to the size of pea. However patient herself chose not to proceed with scheduled surgery, and did not came back for follow-up. In 01/2018, due to re-growth of her left breast tumor with skin ulceration and smells as well as left shoulder pain, she showed up for reevaluation. CT CAP showed no evidence of metastasis in the bone or other locations. She underwent re-biopsy of the left breast cancer on 02/07/2018 and it was confirmed to be TNBC. Preoperative chemotherapy was recommended in anticipation of difficulty closing the big defect if surgery resection upfront. She was started on weekly Carboplatin (AUC 2) and Paclitaxel (80 mg/m2) on 02/22/2018 at [facility]. After 5 weekly treatments (02/22/2018, 03/01/2018, 03/08/2018, 03/15/2018 and 03/22/2018 respectively, her left shoulder pain and range of movement improved. 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 On 07/01/2018, because the left breast lump began to grow again with recurrent left shoulder stiffness and left shoulder pain, she presented at [facility] and request to resume chemotherapy. During her previous visit on 07/01/2018, out of concern for possible left supraclavicular palpable lymph node, repeat CT scan of the chest abdomen pelvis together with CT scan of the neck were obtained to evaluate for possible disease progression or metastasis. Fortunately the CT scan showed no evidence of disease metastasis in the neck or other parts of the body. It also showed that the left breast lump actually is decreasing in size. Patient presents here today for cycle 7 of chemotherapy. She denies fever or chills. No nausea no vomiting. No diarrhea no constipation. - Patient Self-Reported Symptoms SR Skin issues: Skin rash or itching - Additional ROS All systems PM: reviewed and no additional remarkable complaints except as stated Home Medications and Allergies Home Medications Medication Instructions Recorded Confirmed Type OMEGA-3 FATTY ACIDS (FISH OIL) 500 mg PO Q DAY #0 04/24/16 07/01/18 History Lacto.acidophilus-Bif.animalis 1 cap PO DAILY 12/15/17 07/01/18 History [Probiotic] loratadine [Claritin] 10 mg PO DAILY PRN 12/15/17 07/01/18 History multivitamin 1 tab PO DAILY 12/15/17 07/01/18 History vitamin B complex 1 tab PO DAILY 12/15/17 07/01/18 History mupirocin 2 % topical ointment 1 applic TOP BID #30 gram 06/14/18 07/01/18 Rx Allergies Allergy/AdvReac Type Severity Reaction Status Date / Time Sulfa (Sulfonamide Allergy Unknown Verified 06/14/18 09:20 Antibiotics) [SULFA (SULFONAMIDE ANTIBIOTICS)] Exam Vital signs: Last Vital Signs Temp 98.2 F 07/01/18 09:48 Pulse 78 07/01/18 09:48 Resp 18 07/01/18 09:48 BP 124/85 07/01/18 09:48 Pulse Ox 100 07/01/18 09:48 ECOG 1 Narrative: Constitutional: WDWN, NAD, thin, pleasant and cooperative, came in by herself. HEENT: NCAT, EOMI, PERRLA, anicteric sclera, no hearing difficulty; oral mucus membrane moist and without ulcers. Neck: Supple, symmetrical, and tracheal midline; No palpable thyromegaly and no palpable lymph nodes. Respiratory: No use of accessory muscles. Clear to auscultation, and no wheezes or rales or rubs. Cardiovascular: Regular rate and rhythm, S1 and S2 normal, no murmurs gallops or rubs. No JVD. No pitting edema of lower extremities. Abdomen: Soft, nontender, non-distended, bowel sounds normal, no palpable organomegaly, no hernia, no palpable masses. Lower extremities: No palpable pedal edema. Lymphatic: no palpable lymph nodes in the neck, axillae, or groins. Neurological: Awake and alert and oriented x3. CN II-XII grossly intact. No focal motor or sensory deficit. Psychiatric: Good judgment, good insight, normal affect, normal thought process, cooperative, no depression, no anxiety. Breast exam: right: No nipple retraction, no skin changes, no palpable mass/nodules no palpable lymph nodes in the right axilla. Left: A irregularly shaped semi fixed lobulated mass again noted at the left upper inner quadrant with scab formation and skin discoloration. No open wounds. No secretions. Mild skin erythema around noted. All physical examinations were chaperoned. Results - Labs Laboratory Last Values WBC 4.4 X10^3/uL (4.5-11.0) L 07/08/18 07:55 RBC 3.20 X10^6/uL (4.0-5.2) L 07/08/18 07:55 Hgb 10.5 g/dL (12.0-16.0) L 07/08/18 07:55 Hct 30.1 % (36-46) L 07/08/18 07:55 MCV 94.2 fL (80-100) 07/08/18 07:55 MCH 32.9 PG (26-34) 07/08/18 07:55 MCHC 35.0 % (30-36) 07/08/18 07:55 RDW 12.4 % (11.6-14.8) 07/08/18 07:55 Plt Count 342 X10^3/uL (150-400) 07/08/18 07:55 Neut % (Auto) 61.1 % (50-75) 07/08/18 07:55 Lymph % (Auto) 21.7 % (25-40) L 07/08/18 07:55 [place] % (Auto) 5.4 % (3-14) 07/08/18 07:55 Eos % (Auto) 11.4 % (2-4) H 07/08/18 07:55 Baso % (Auto) 0.4 % (0-2) 07/08/18 07:55 Neut # (Auto) 2700 /uL (6883-1196) 07/08/18 07:55 Sodium 134 mmol/L (137-145) L 07/08/18 07:55 Potassium 4.0 mmol/L (3.4-5.1) 07/08/18 07:55 Chloride 98 mmol/L (98-107) 07/08/18 07:55 Carbon Dioxide 27 mmol/L (22-32) 07/08/18 07:55 BUN 4 mg/dL (7-17) L 07/08/18 07:55 Creatinine 0.40 mg/dL (0.52-1.04) L 07/08/18 07:55 Estimated GFR > 60.0 mL/min (>60) 07/08/18 07:55 BUN/Creatinine Ratio 10.0 (6-22) 07/08/18 07:55 Glucose 88 mg/dL (70-100) 07/08/18 07:55 Calcium 8.8 mg/dL (8.4-10.2) 07/08/18 07:55 Total Bilirubin 0.2 mg/dL (0.2-1.3) 07/08/18 07:55 AST 45 IU/L (14-36) H 07/08/18 07:55 ALT 44 IU/L (9-52) 07/08/18 07:55 Alkaline Phosphatase 66 U/L (38-126) 07/08/18 07:55 Total Protein 7.1 g/dL (6.3-8.2) 07/08/18 07:55 Albumin 4.1 g/dL (3.5-5.0) 07/08/18 07:55 Globulin 3.0 g/dL (1.7-4.1) 07/08/18 07:55 Albumin/Globulin Ratio 1.4 (1.0-2.8) 07/08/18 07:55 Carcinoembryonic Ag 3.4 ng/mL (0.1-3.0) H 07/01/18 09:11 CA 27-29 19 U/mL (< 38) 07/01/18 09:11 Assessment and Plan (1) Triple negative malignant neoplasm of breast Problem details: 1. Localized advanced left triple negative breast cancer diagnosed on 10/09/2015. She underwent neoadjuvant chemotherapy with dose dense AC for 4 cycles followed by weekly paclitaxel/carboplatin completed 05/01/2017. Patient's left breast mass has decreased significantly to the size of a pea, but she chose not to proceed with scheduled surgery, and lost to follow-up. 2. Recurrent locally with skin ulceration and smells at the left breat in 01/2018, confirmed by re-biopy to be TNBC. Restaging CAP showed no distant metastasis. Preoperative chemotherapy was recommended due to concern to close the defect because of the size of the tumor. 3. Weekly carboplatin and paclitaxel 02/22/2018 at [facility] initiated 02/22/2018 Assessment: The reviewed the CT scan results with the patient. Fortunately, there is no evidence of lymph node enlargement in the neck and there is no evidence of distant metastasis. The primary tumor of the left breast is actually smaller compared prior to the chemotherapy. On my physical examination, the left upper inner breast mass is still quite remarkable, measuring at least 7-8 cm, irregular, and somewhat fixed to the underlying chest wall. Today I took time talking with the patient again about the importance of complying with scheduled chemotherapy. I am afraid with intermittent treatment, her cancer may eventually become refractory to the chemotherapy. Today I will proceed with scheduled chemotherapy and will evaluate when she comes back in 2 weeks. Plan 1. Ok to proceed to Carbo (AUC2)/Paclitaxol (80 mg/m2), now cycle 7, plan for 12 cycles. 2. Continue cycle 8 in one week. 3. RTC in 2 weeks for cycle 9 treatment, MD visit and CBC, CMP, CA27-29, CEA.
--- NOTE | 2018-07-08 08:34 | P.PNONC_ITS ---
PN -Subjective Interval history: Lisa Llamas is a 52-year-old female who presents today for Carboplatin/Paclitaxel cycle 7# treatment. She was diagnosed with left breast localized advanced triple negative breast cancer (TNBC) on 10/09/2015. The primary tumor measured 6 x 6 cm at 10:00. She underwent neoadjuvant dose dense AC x 4 cycles followed by weekly Paclitaxel/ Carboplatin completed 05/01/2017. Patient's left breast mass shrunk to the size of pea. However patient herself chose not to proceed with scheduled surgery, and did not came back for follow-up. In 01/2018, due to re-growth of her left breast tumor with skin ulceration and smells as well as left shoulder pain, she showed up for reevaluation. CT CAP showed no evidence of metastasis in the bone or other locations. She underwent re-biopsy of the left breast cancer on 02/07/2018 and it was confirmed to be TNBC. Preoperative chemotherapy was recommended in anticipation of difficulty closing the big defect if surgery resection upfront. She was started on weekly Carboplatin (AUC 2) and Paclitaxel (80 mg/m2) on 2017 at [facility]. After 5 weekly treatments (, 03/01/2018, 03/08/2018, 03/15/2018 and 03/22/2018 respectively, her left shoulder pain and range of movement improved. 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 On 07/01/2018, because the left breast lump began to grow again with recurrent left shoulder stiffness and left shoulder pain, she presented at [facility] and request to resume chemotherapy. During her previous visit on 09/2018, out of concern for possible left supraclavicular palpable lymph node, repeat CT scan of the chest abdomen pelvis together with CT scan of the neck were obtained to evaluate for possible disease progression or metastasis. Fortunately the CT scan showed no evidence of disease metastasis in the neck or other parts of the body. It also showed that the left breast lump actually is decreasing in size. Patient presents here today for cycle 7 of chemotherapy. She denies fever or chills. No nausea no vomiting. No diarrhea no constipation. - Patient Self-Reported Symptoms SR Skin issues: Skin rash or itching - Additional ROS All systems PM: reviewed and no additional remarkable complaints except as stated Home Medications and Allergies Home Medications Medication Instructions Recorded Confirmed Type OMEGA-3 FATTY ACIDS (FISH OIL) 500 mg PO Q DAY #0 04/24/16 07/01/18 History Lacto.acidophilus-Bif.animalis 1 cap PO DAILY 12/15/17 07/01/18 History [Probiotic] loratadine [Claritin] 10 mg PO DAILY PRN 12/15/17 07/01/18 History multivitamin 1 tab PO DAILY 12/15/17 07/01/18 History vitamin B complex 1 tab PO DAILY 12/15/17 07/01/18 History mupirocin 2 % topical ointment 1 applic TOP BID #30 gram 06/14/18 07/01/18 Rx Allergies Allergy/AdvReac Type Severity Reaction Status Date / Time Sulfa (Sulfonamide Allergy Unknown Verified 06/14/18 09:20 Antibiotics) [SULFA (SULFONAMIDE ANTIBIOTICS)] Exam Vital signs: Last Vital Signs Temp 98.2 F 07/01/18 09:48 Pulse 78 07/01/18 09:48 Resp 18 07/01/18 09:48 BP 124/85 07/01/18 09:48 Pulse Ox 100 07/01/18 09:48 ECOG 1 Narrative: Constitutional: WDWN, NAD, thin, pleasant and cooperative, came in by herself. HEENT: NCAT, EOMI, PERRLA, anicteric sclera, no hearing difficulty; oral mucus membrane moist and without ulcers. Neck: Supple, symmetrical, and tracheal midline; No palpable thyromegaly and no palpable lymph nodes. Respiratory: No use of accessory muscles. Clear to auscultation, and no wheezes or rales or rubs. Cardiovascular: Regular rate and rhythm, S1 and S2 normal, no murmurs gallops or rubs. No JVD. No pitting edema of lower extremities. Abdomen: Soft, nontender, non-distended, bowel sounds normal, no palpable organomegaly, no hernia, no palpable masses. Lower extremities: No palpable pedal edema. Lymphatic: no palpable lymph nodes in the neck, axillae, or groins. Neurological: Awake and alert and oriented x3. CN II-XII grossly intact. No focal motor or sensory deficit. Psychiatric: Good judgment, good insight, normal affect, normal thought process , cooperative, no depression, no anxiety. Breast exam: right: No nipple retraction, no skin changes, no palpable mass/ nodules no palpable lymph nodes in the right axilla. Left: A irregularly shaped semi fixed lobulated mass again noted at the left upper inner quadrant with scab formation and skin discoloration. No open wounds. No secretions. Mild skin erythema around noted. All physical examinations were chaperoned. Results - Labs Laboratory Last Values WBC 4.4 X10^3/uL (4.5-11.0) L 07/08/18 07:55 RBC 3.20 X10^6/uL (4.0-5.2) L 07/08/18 07:55 Hgb 10.5 g/dL (12.0-16.0) L 07/08/18 07:55 Hct 30.1 % (36-46) L 07/08/18 07:55 MCV 94.2 fL (80-100) 07/08/18 07:55 MCH 32.9 PG (26-34) 07/08/18 07:55 MCHC 35.0 % (30-36) 07/08/18 07:55 RDW 12.4 % (11.6-14.8) 07/08/18 07:55 Plt Count 342 X10^3/uL (150-400) 07/08/18 07:55 Neut % (Auto) 61.1 % (50-75) 07/08/18 07:55 Lymph % (Auto) 21.7 % (25-40) L 07/08/18 07:55 [place] % (Auto) 5.4 % (3-14) 07/08/18 07:55 Eos % (Auto) 11.4 % (2-4) H 07/08/18 07:55 Baso % (Auto) 0.4 % (0-2) 07/08/18 07:55 Neut # (Auto) 2700 /uL (7719-4774) 07/08/18 07:55 Sodium 134 mmol/L (137-145) L 07/08/18 07:55 Potassium 4.0 mmol/L (3.4-5.1) 07/08/18 07:55 Chloride 98 mmol/L (98-107) 07/08/18 07:55 Carbon Dioxide 27 mmol/L (22-32) 07/08/18 07:55 BUN 4 mg/dL (7-17) L 07/08/18 07:55 Creatinine 0.40 mg/dL (0.52-1.04) L 07/08/18 07:55 Estimated GFR > 60.0 mL/min (>60) 07/08/18 07:55 BUN/Creatinine Ratio 10.0 (6-22) 07/08/18 07:55 Glucose 88 mg/dL (70-100) 07/08/18 07:55 Calcium 8.8 mg/dL (8.4-10.2) 07/08/18 07:55 Total Bilirubin 0.2 mg/dL (0.2-1.3) 07/08/18 07:55 AST 45 IU/L (14-36) H 07/08/18 07:55 ALT 44 IU/L (9-52) 07/08/18 07:55 Alkaline Phosphatase 66 U/L (38-126) 07/08/18 07:55 Total Protein 7.1 g/dL (6.3-8.2) 07/08/18 07:55 Albumin 4.1 g/dL (3.5-5.0) 07/08/18 07:55 Globulin 3.0 g/dL (1.7-4.1) 07/08/18 07:55 Albumin/Globulin Ratio 1.4 (1.0-2.8) 07/08/18 07:55 Carcinoembryonic Ag 3.4 ng/mL (0.1-3.0) H 07/01/18 09:11 CA 27-29 19 U/mL (< 38) 07/01/18 09:11 Assessment and Plan (1) Triple negative malignant neoplasm of breast Problem details: 1. Localized advanced left triple negative breast cancer diagnosed on 2015. She underwent neoadjuvant chemotherapy with dose dense AC for 4 cycles followed by weekly paclitaxel/carboplatin completed 05/01/2017. Patient's left breast mass has decreased significantly to the size of a pea, but she chose not to proceed with scheduled surgery, and lost to follow-up. 2. Recurrent locally with skin ulceration and smells at the left breat in 2017, confirmed by re-biopy to be TNBC. Restaging CAP showed no distant metastasis. Preoperative chemotherapy was recommended due to concern to close the defect because of the size of the tumor. 3. Weekly carboplatin and paclitaxel 02/22/2018 at [facility] initiated 02/22/2018 Assessment: The reviewed the CT scan results with the patient. Fortunately, there is no evidence of lymph node enlargement in the neck and there is no evidence of distant metastasis. The primary tumor of the left breast is actually smaller compared prior to the chemotherapy. On my physical examination, the left upper inner breast mass is still quite remarkable, measuring at least 7-8 cm, irregular, and somewhat fixed to the underlying chest wall. Today I took time talking with the patient again about the importance of complying with scheduled chemotherapy. I am afraid with intermittent treatment, her cancer may eventually become refractory to the chemotherapy. Today I will proceed with scheduled chemotherapy and will evaluate when she comes back in 2 weeks. Plan 1. Ok to proceed to Carbo (AUC2)/Paclitaxol (80 mg/m2), now cycle 7, plan for 12 cycles. 2. Continue cycle 8 in one week. 3. RTC in 2 weeks for cycle 9 treatment, MD visit and CBC, CMP, CA27-29, CEA.
[2018-07-08 08:46] VITALS: BP 121/80; PULSE 67; RESP 18; TEMP 36.5; O2SAT 100
[2018-07-08] MEDS: ACETAMINOPHEN 325 MG TABLET 650 MG PO (09:00)
[2018-07-08] MEDS: DEXAMETHASONE 10 MG/ML VIAL IV (09:01)
[2018-07-08] MEDS: diphenhydrAMINE 25 MG TABLET PO (09:01)
[2018-07-08] MEDS: ONDANSETRON 16 MG in SODIUM CHLORIDE 0.9% 50 ML 232 ML IV (09:17)
[2018-07-08] MEDS: FAMOTIDINE 20 MG/50 ML PIGGYBACK 200 MG IV (09:42)
[2018-07-08] MEDS: PACLITAXEL IV (10:32)
[2018-07-08] MEDS: DEXTROSE 5% IV (10:32)
[2018-07-08] MEDS: SODIUM CHLORIDE 0.9% IV (11:52)
[2018-07-08] MEDS: CARBOPLATIN IV (11:52)
[2018-07-14 09:24] LABS: Add Manual Diff / Slide Review NO; Basophils Absolute Auto 0 /uL (0-100); Basophils Percent Auto 0.2 % (0-2); Eosinophils Absolute Auto 200 /uL (0-450); Eosinophils Percent Auto 5.3 % (2-4); Hematocrit 30.5 % (36-46); Hemoglobin 10.4 g/dL (12.0-16.0); Lymphocytes Absolute Auto 1100 /uL (1100-4500); Mean Corpuscular HGB Conc 34.2 % (30-36); Mean Corpuscular Hemoglobin 32.2 PG (26-34); Mean Corpuscular Volume 94.1 fL (80-100); Monocytes Absolute Auto 200 /uL (0-900); Monocytes Percent Auto 4.1 % (3-14); Neutrophils Absolute Auto 2600 /uL (1500-7000); Neutrophils Percent Auto 62.4 % (50-75); Platelet Count 350 X10^3/uL (150-400); Red Blood Cell Count 3.24 X10^6/uL (4.0-5.2); White Blood Cell Count 4.1 X10^3/uL (4.5-11.0)
[2018-07-14 09:41] LABS: Alanine Aminotransferase 44 IU/L (9-52); Albumin 4.2 g/dL (3.5-5.0); Albumin Globulin Ratio 1.4 (1.0-2.8); Alkaline Phosphatase 73 U/L (38-126); Aspartate Aminotransferase 41 IU/L (14-36); BUN Creatinine Ratio 7.5 (6-22); Bilirubin Total 0.3 mg/dL (0.2-1.3); Blood Urea Nitrogen 3 mg/dL (7-17); Calcium 8.7 mg/dL (8.4-10.2); Carbon Dioxide 24 mmol/L (22-32); Chloride 99 mmol/L (98-107); Estimated Glomerular Filt Rate > 60.0 mL/min (>60); Globulin 2.9 g/dL (1.7-4.1); Glucose 80 mg/dL (70-100); HEMOLYSIS < 15 (0-50); Potassium 3.9 mmol/L (3.4-5.1); Sodium 133 mmol/L (137-145); Total Protein 7.1 g/dL (6.3-8.2)
[2018-07-14 09:47] VITALS: BP 124/82; PULSE 72; RESP 18; TEMP 36.4; O2SAT 100
--- NOTE | 2018-07-14 10:26 | ONC.APRN.PN ---
PN -Subjective Interval history: Lisa Llamas is a 52-year-old female who presents today for Carboplatin/Paclitaxel cycle 8# treatment. She was diagnosed with left breast localized advanced triple negative breast cancer (TNBC) on 10/09/2015. The primary tumor measured 6 x 6 cm at 10:00. She underwent neoadjuvant dose dense AC x 4 cycles followed by weekly Paclitaxel/Carboplatin completed 05/01/2017. Patient's left breast mass shrunk to the size of pea. However patient herself chose not to proceed with scheduled surgery, and did not came back for follow-up. In 01/2018, due to re-growth of her left breast tumor with skin ulceration and smells as well as left shoulder pain, she showed up for reevaluation. CT CAP showed no evidence of metastasis in the bone or other locations. She underwent re-biopsy of the left breast cancer on 02/07/2018 and it was confirmed to be TNBC. Preoperative chemotherapy was recommended in anticipation of difficulty closing the big defect if surgery resection upfront. She was started on weekly Carboplatin (AUC 2) and Paclitaxel (80 mg/m2) on 02/22/2018 at [facility]. After 5 weekly treatments (02/22/2018, 03/01/2018, 03/08/2018, 03/15/2018 and 03/22/2018 respectively, her left shoulder pain and range of movement improved. 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 On 07/01/2018, because the left breast lump began to grow again with recurrent left shoulder stiffness and left shoulder pain, she presented at [facility] and request to resume chemotherapy. During her previous visit on 07/01/2018, out of concern for possible left supraclavicular palpable lymph node, repeat CT scan of the chest abdomen pelvis together with CT scan of the neck were obtained to evaluate for possible disease progression or metastasis. Fortunately the CT scan showed no evidence of disease metastasis in the neck or other parts of the body. It also showed that the left breast lump actually is decreasing in size. Patient presents here today for cycle 8 of chemotherapy. She denies fever or chills. No nausea no vomiting. No diarrhea no constipation. No new pain, no new lumps or bumps. Activity tolerance is pretty good. denies nausea however reports food is beginning to taste odd. No unexplained bleeding or bruising. - Patient Self-Reported Symptoms SR respiratory issues: Cough, Mucous SR Skin issues: Skin rash or itching SR Musculoskeletal issues: Difficulty walking Home Medications and Allergies Home Medications Medication Instructions Recorded Confirmed Type OMEGA-3 FATTY ACIDS (FISH OIL) 500 mg PO Q DAY #0 04/24/16 07/01/18 History Lacto.acidophilus-Bif.animalis 1 cap PO DAILY 12/15/17 07/01/18 History [Probiotic] loratadine [Claritin] 10 mg PO DAILY PRN 12/15/17 07/01/18 History multivitamin 1 tab PO DAILY 12/15/17 07/01/18 History vitamin B complex 1 tab PO DAILY 12/15/17 07/01/18 History mupirocin 2 % topical ointment 1 applic TOP BID #30 gram 06/14/18 07/01/18 Rx Allergies Allergy/AdvReac Type Severity Reaction Status Date / Time Sulfa (Sulfonamide Allergy Unknown Verified 06/14/18 09:20 Antibiotics) [SULFA (SULFONAMIDE ANTIBIOTICS)] Exam - Constitutional positive no acute distress, positive thin - Routine HEENT Exam Eye: Present: conjunctivae pink. Absent: conjunctival icterus, scleral injection ENT: Present: mucous membranes moist, oropharynx clear - Routine Neck Exam Present: supple. Absent: lymphadenopathy Comments: pt remains with a string of palpable cervical lymph nodes, right. Smaller than a pea, approx 3mm, decreased in size since previous exam. - Routine Chest/Breast/Axilla Exam Comments: deferred pt was cold I do not want to undress. - Routine Respiratory Exam Present: Clear to auscultation bilaterally. Absent: rales, rhonchi, wheezes - Routine Cardiovascular Exam Present: RRR, S1, S2. Absent: murmur, gallop, rubs, JVD - Routine Abdominal Exam Present: soft, normoactive bowel sounds. Absent: tenderness, distended, rebound, guarding Comments: scaphoid abdomen - Routine Extremities Exam Absent: edema, calf tenderness - Routine Skin Exam Present: intact, lesions, normal turgor. Absent: petechiae, rash Comments: small crusty lesion left face cheek. Per pt report its been there a year. Lesion is erythematous, raised - Routine Neurological Exam Present: alert, oriented X3 - Routine Psychiatric Exam Present: normal affect Results - Labs Laboratory Last Values WBC 4.1 X10^3/uL (4.5-11.0) L 07/14/18 09:18 RBC 3.24 X10^6/uL (4.0-5.2) L 07/14/18 09:18 Hgb 10.4 g/dL (12.0-16.0) L 07/14/18 09:18 Hct 30.5 % (36-46) L 07/14/18 09:18 MCV 94.1 fL (80-100) 07/14/18 09:18 MCH 32.2 PG (26-34) 07/14/18 09:18 MCHC 34.2 % (30-36) 07/14/18 09:18 RDW 12.0 % (11.6-14.8) 07/14/18 09:18 Plt Count 350 X10^3/uL (150-400) 07/14/18 09:18 Neut % (Auto) 62.4 % (50-75) 07/14/18 09:18 Lymph % (Auto) 28.0 % (25-40) 07/14/18 09:18 [place] % (Auto) 4.1 % (3-14) 07/14/18 09:18 Eos % (Auto) 5.3 % (2-4) H 07/14/18 09:18 Baso % (Auto) 0.2 % (0-2) 07/14/18 09:18 Neut # (Auto) 2600 /uL (4120-3435) 07/14/18 09:18 Lymph # (Auto) 1100 /uL (7838-3275) 07/14/18 09:18 [place] # (Auto) 200 /uL (0-900) 07/14/18 09:18 Eos # (Auto) 200 /uL (0-450) 07/14/18 09:18 Baso # (Auto) 0 /uL (0-100) 07/14/18 09:18 Sodium 133 mmol/L (137-145) L 07/14/18 09:18 Potassium 3.9 mmol/L (3.4-5.1) 07/14/18 09:18 Chloride 99 mmol/L (98-107) 07/14/18 09:18 Carbon Dioxide 24 mmol/L (22-32) 07/14/18 09:18 BUN 3 mg/dL (7-17) L 07/14/18 09:18 Creatinine 0.40 mg/dL (0.52-1.04) L 07/14/18 09:18 Estimated GFR > 60.0 mL/min (>60) 07/14/18 09:18 BUN/Creatinine Ratio 7.5 (6-22) 07/14/18 09:18 Glucose 80 mg/dL (70-100) 07/14/18 09:18 Calcium 8.7 mg/dL (8.4-10.2) 07/14/18 09:18 Total Bilirubin 0.3 mg/dL (0.2-1.3) 07/14/18 09:18 AST 41 IU/L (14-36) H 07/14/18 09:18 ALT 44 IU/L (9-52) 07/14/18 09:18 Alkaline Phosphatase 73 U/L (38-126) 07/14/18 09:18 Total Protein 7.1 g/dL (6.3-8.2) 07/14/18 09:18 Albumin 4.2 g/dL (3.5-5.0) 07/14/18 09:18 Globulin 2.9 g/dL (1.7-4.1) 07/14/18 09:18 Albumin/Globulin Ratio 1.4 (1.0-2.8) 07/14/18 09:18 Carcinoembryonic Ag 3.4 ng/mL (0.1-3.0) H 07/01/18 09:11 CA 27-29 19 U/mL (< 38) 07/01/18 09:11 Assessment and Plan (1) Triple negative malignant neoplasm of breast Problem details: 1. Localized advanced left triple negative breast cancer diagnosed on 10/09/2015. She underwent neoadjuvant chemotherapy with dose dense AC for 4 cycles followed by weekly paclitaxel/carboplatin completed 05/01/2017. Patient's left breast mass has decreased significantly to the size of a pea, but she chose not to proceed with scheduled surgery, and lost to follow-up. 2. Recurrent locally with skin ulceration and smells at the left breat in 01/2018, confirmed by re-biopy to be TNBC. Restaging CAP showed no distant metastasis. Preoperative chemotherapy was recommended due to concern to close the defect because of the size of the tumor. 3. Weekly carboplatin and paclitaxel 02/22/2018 at [facility] initiated 02/22/2018 Assessment: Recent CT scan is reassuring, demonstrating no metastatic disease in fact there is now some regression of disease specifically primary left breast tumor is now smaller when compared to previous. It is fixed to the chest wall. Dr Andujar has discussed the possibility of surgery to remove residual tumor, after chemo once the tumor has shrunk. Plan 1. Ok to proceed to Carbo (AUC2)/Paclitaxol (80 mg/m2), now cycle 8, plan for 12 cycles. 2. Continue cycle 9 in one week also cbc, cmp, provider visit. 3. RTC in 2 weeks for cycle 10 treatment, MD visit and CBC, CMP, CA27-29, CEA. (2) Skin lesion of cheek Current visit: Yes Status: Acute Pt has a raised erythematous lesion on her left face cheek. It is discolored with irregular borders. Per pt report it has been there at least a year and it is getting worse. Specifically pt reports it will swell and become uncomfortable at times. I strongly encouraged the pt to have it evaluated further and it definitely needs to be removed and sent to pathology. I informed pt she should see a earth science laboratory technician she states she has appt with her PCP tomorrow she will have her look at it. Again I emphasized it needs to be removed and sent for pathology noting its discoloration and irregular borders and that it is changing.
--- NOTE | 2018-07-14 10:31 | P.PNONC_ITS ---
PN -Subjective Interval history: Lisa Llamas is a 52-year-old female who presents today for Carboplatin/Paclitaxel cycle 8# treatment. She was diagnosed with left breast localized advanced triple negative breast cancer (TNBC) on 10/09/2015. The primary tumor measured 6 x 6 cm at 10:00. She underwent neoadjuvant dose dense AC x 4 cycles followed by weekly Paclitaxel/ Carboplatin completed 05/01/2017. Patient's left breast mass shrunk to the size of pea. However patient herself chose not to proceed with scheduled surgery, and did not came back for follow-up. In 01/2018, due to re-growth of her left breast tumor with skin ulceration and smells as well as left shoulder pain, she showed up for reevaluation. CT CAP showed no evidence of metastasis in the bone or other locations. She underwent re-biopsy of the left breast cancer on 02/07/2018 and it was confirmed to be TNBC. Preoperative chemotherapy was recommended in anticipation of difficulty closing the big defect if surgery resection upfront. She was started on weekly Carboplatin (AUC 2) and Paclitaxel (80 mg/m2) on 2017 at [facility]. After 5 weekly treatments (, 03/01/2018, 03/08/2018, 03/15/2018 and 03/22/2018 respectively, her left shoulder pain and range of movement improved. 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 On 07/01/2018, because the left breast lump began to grow again with recurrent left shoulder stiffness and left shoulder pain, she presented at [facility] and request to resume chemotherapy. During her previous visit on 09/2018, out of concern for possible left supraclavicular palpable lymph node, repeat CT scan of the chest abdomen pelvis together with CT scan of the neck were obtained to evaluate for possible disease progression or metastasis. Fortunately the CT scan showed no evidence of disease metastasis in the neck or other parts of the body. It also showed that the left breast lump actually is decreasing in size. Patient presents here today for cycle 8 of chemotherapy. She denies fever or chills. No nausea no vomiting. No diarrhea no constipation. No new pain, no new lumps or bumps. Activity tolerance is pretty good. denies nausea however reports food is beginning to taste odd. No unexplained bleeding or bruising. - Patient Self-Reported Symptoms SR respiratory issues: Cough, Mucous SR Skin issues: Skin rash or itching SR Musculoskeletal issues: Difficulty walking Home Medications and Allergies Home Medications Medication Instructions Recorded Confirmed Type OMEGA-3 FATTY ACIDS (FISH OIL) 500 mg PO Q DAY #0 04/24/16 07/01/18 History Lacto.acidophilus-Bif.animalis 1 cap PO DAILY 12/15/17 07/01/18 History [Probiotic] loratadine [Claritin] 10 mg PO DAILY PRN 12/15/17 07/01/18 History multivitamin 1 tab PO DAILY 12/15/17 07/01/18 History vitamin B complex 1 tab PO DAILY 12/15/17 07/01/18 History mupirocin 2 % topical ointment 1 applic TOP BID #30 gram 06/14/18 07/01/18 Rx Allergies Allergy/AdvReac Type Severity Reaction Status Date / Time Sulfa (Sulfonamide Allergy Unknown Verified 06/14/18 09:20 Antibiotics) [SULFA (SULFONAMIDE ANTIBIOTICS)] Exam - Constitutional positive no acute distress, positive thin - Routine HEENT Exam Eye: Present: conjunctivae pink. Absent: conjunctival icterus, scleral injection ENT: Present: mucous membranes moist, oropharynx clear - Routine Neck Exam Present: supple. Absent: lymphadenopathy Comments: pt remains with a string of palpable cervical lymph nodes, right. Smaller than a pea, approx 3mm, decreased in size since previous exam. - Routine Chest/Breast/Axilla Exam Comments: deferred pt was cold I do not want to undress. - Routine Respiratory Exam Present: Clear to auscultation bilaterally. Absent: rales, rhonchi, wheezes - Routine Cardiovascular Exam Present: RRR, S1, S2. Absent: murmur, gallop, rubs, JVD - Routine Abdominal Exam Present: soft, normoactive bowel sounds. Absent: tenderness, distended, rebound , guarding Comments: scaphoid abdomen - Routine Extremities Exam Absent: edema, calf tenderness - Routine Skin Exam Present: intact, lesions, normal turgor. Absent: petechiae, rash Comments: small crusty lesion left face cheek. Per pt report its been there a year. Lesion is erythematous, raised - Routine Neurological Exam Present: alert, oriented X3 - Routine Psychiatric Exam Present: normal affect Results - Labs Laboratory Last Values WBC 4.1 X10^3/uL (4.5-11.0) L 07/14/18 09:18 RBC 3.24 X10^6/uL (4.0-5.2) L 07/14/18 09:18 Hgb 10.4 g/dL (12.0-16.0) L 07/14/18 09:18 Hct 30.5 % (36-46) L 07/14/18 09:18 MCV 94.1 fL (80-100) 07/14/18 09:18 MCH 32.2 PG (26-34) 07/14/18 09:18 MCHC 34.2 % (30-36) 07/14/18 09:18 RDW 12.0 % (11.6-14.8) 07/14/18 09:18 Plt Count 350 X10^3/uL (150-400) 07/14/18 09:18 Neut % (Auto) 62.4 % (50-75) 07/14/18 09:18 Lymph % (Auto) 28.0 % (25-40) 07/14/18 09:18 [place] % (Auto) 4.1 % (3-14) 07/14/18 09:18 Eos % (Auto) 5.3 % (2-4) H 07/14/18 09:18 Baso % (Auto) 0.2 % (0-2) 07/14/18 09:18 Neut # (Auto) 2600 /uL (0546-0868) 07/14/18 09:18 Lymph # (Auto) 1100 /uL (1353-5580) 07/14/18 09:18 [place] # (Auto) 200 /uL (0-900) 07/14/18 09:18 Eos # (Auto) 200 /uL (0-450) 07/14/18 09:18 Baso # (Auto) 0 /uL (0-100) 07/14/18 09:18 Sodium 133 mmol/L (137-145) L 07/14/18 09:18 Potassium 3.9 mmol/L (3.4-5.1) 07/14/18 09:18 Chloride 99 mmol/L (98-107) 07/14/18 09:18 Carbon Dioxide 24 mmol/L (22-32) 07/14/18 09:18 BUN 3 mg/dL (7-17) L 07/14/18 09:18 Creatinine 0.40 mg/dL (0.52-1.04) L 07/14/18 09:18 Estimated GFR > 60.0 mL/min (>60) 07/14/18 09:18 BUN/Creatinine Ratio 7.5 (6-22) 07/14/18 09:18 Glucose 80 mg/dL (70-100) 07/14/18 09:18 Calcium 8.7 mg/dL (8.4-10.2) 07/14/18 09:18 Total Bilirubin 0.3 mg/dL (0.2-1.3) 07/14/18 09:18 AST 41 IU/L (14-36) H 07/14/18 09:18 ALT 44 IU/L (9-52) 07/14/18 09:18 Alkaline Phosphatase 73 U/L (38-126) 07/14/18 09:18 Total Protein 7.1 g/dL (6.3-8.2) 07/14/18 09:18 Albumin 4.2 g/dL (3.5-5.0) 07/14/18 09:18 Globulin 2.9 g/dL (1.7-4.1) 07/14/18 09:18 Albumin/Globulin Ratio 1.4 (1.0-2.8) 07/14/18 09:18 Carcinoembryonic Ag 3.4 ng/mL (0.1-3.0) H 07/01/18 09:11 CA 27-29 19 U/mL (< 38) 07/01/18 09:11 Assessment and Plan (1) Triple negative malignant neoplasm of breast Problem details: 1. Localized advanced left triple negative breast cancer diagnosed on 2015. She underwent neoadjuvant chemotherapy with dose dense AC for 4 cycles followed by weekly paclitaxel/carboplatin completed 05/01/2017. Patient's left breast mass has decreased significantly to the size of a pea, but she chose not to proceed with scheduled surgery, and lost to follow-up. 2. Recurrent locally with skin ulceration and smells at the left breat in 2017, confirmed by re-biopy to be TNBC. Restaging CAP showed no distant metastasis. Preoperative chemotherapy was recommended due to concern to close the defect because of the size of the tumor. 3. Weekly carboplatin and paclitaxel 02/22/2018 at [facility] initiated 02/22/2018 Assessment: Recent CT scan is reassuring, demonstrating no metastatic disease in fact there is now some regression of disease specifically primary left breast tumor is now smaller when compared to previous. It is fixed to the chest wall. Dr Andujar has discussed the possibility of surgery to remove residual tumor, after chemo once the tumor has shrunk. Plan 1. Ok to proceed to Carbo (AUC2)/Paclitaxol (80 mg/m2), now cycle 8, plan for 12 cycles. 2. Continue cycle 9 in one week also cbc, cmp, provider visit. 3. RTC in 2 weeks for cycle 10 treatment, MD visit and CBC, CMP, CA27-29, CEA. (2) Skin lesion of cheek Current visit: Yes Status: Acute Pt has a raised erythematous lesion on her left face cheek. It is discolored with irregular borders. Per pt report it has been there at least a year and it is getting worse. Specifically pt reports it will swell and become uncomfortable at times. I strongly encouraged the pt to have it evaluated further and it definitely needs to be removed and sent to pathology. I informed pt she should see a entry level software developer she states she has appt with her PCP tomorrow she will have her look at it. Again I emphasized it needs to be removed and sent for pathology noting its discoloration and irregular borders and that it is changing.
[2018-07-14] MEDS: ACETAMINOPHEN 325 MG TABLET 650 MG PO (11:31)
[2018-07-14] MEDS: diphenhydrAMINE 25 MG TABLET PO (11:31)
[2018-07-14] MEDS: DEXAMETHASONE 10 MG/ML VIAL IV (11:31)
[2018-07-14] MEDS: ONDANSETRON 16 MG in SODIUM CHLORIDE 0.9% 50 ML 232 ML IV (11:44)
[2018-07-14] MEDS: FAMOTIDINE 20 MG/50 ML PIGGYBACK 200 MG IV (12:05)
[2018-07-14] MEDS: SODIUM CHLORIDE 0.9% 100 ML 21 ML IV (12:47)
[2018-07-14] MEDS: DEXTROSE 5% IV (12:49)
[2018-07-14] MEDS: PACLITAXEL IV (12:49)
[2018-07-14] MEDS: SODIUM CHLORIDE 0.9% IV (14:20)
[2018-07-14] MEDS: CARBOPLATIN IV (14:20)
--- NOTE | 2018-07-22 09:51 | ONC.PN ---
PN -Subjective Interval history: Lisa Llamas is a 52-year-old female. She was diagnosed with left breast localized advanced triple negative breast cancer (TNBC) on 10/09/2015. The primary tumor measured 6 x 6 cm at 10:00. She underwent neoadjuvant dose dense AC x 4 cycles followed by weekly Paclitaxel/Carboplatin completed 05/01/2017. Patient's left breast mass shrunk to the size of pea. However patient herself chose not to proceed with scheduled surgery, and did not came back for follow-up. In 01/2018, due to re-growth of her left breast tumor with skin ulceration and smells as well as left shoulder pain, she showed up for reevaluation. CT CAP showed no evidence of metastasis in the bone or other locations. She underwent re-biopsy of the left breast cancer on 02/07/2018 and it was confirmed to be TNBC. Preoperative chemotherapy was recommended in anticipation of difficulty closing the big defect if surgery resection upfront. She was started on weekly Carboplatin (AUC 2) and Paclitaxel (80 mg/m2) on 02/22/2018 at [facility]. After 5 weekly treatments (02/22/2018, 03/01/2018, 03/08/2018, 03/15/2018 and 03/22/2018 respectively, her left shoulder pain and range of movement improved. 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 On 07/01/2018, because the left breast lump began to grow again with recurrent left shoulder stiffness and left shoulder pain, she presented at [facility] and request to resume chemotherapy. During her visit on 07/01/2018, out of concern for possible left supraclavicular palpable lymph node, repeat CT scan of the chest abdomen pelvis together with CT scan of the neck were obtained to evaluate for possible disease progression or metastasis. Fortunately the CT scan showed no evidence of disease metastasis in the neck or other parts of the body. It also showed that the left breast lump actually is decreasing in size. Today (07/22/2018) she presents for Carboplatin/Paclitaxel cycle 9# treatment. She denies fever or chills. No nausea no vomiting. No diarrhea no constipation. No new pain, no new lumps or bumps. She denies any tingling or numbing of her hands and feet. - Patient Self-Reported Symptoms SR respiratory issues: Cough, Mucous SR Skin issues: Skin rash or itching SR Musculoskeletal issues: Difficulty walking - Additional ROS All systems PM: reviewed and no additional remarkable complaints except as stated Home Medications and Allergies Home Medications Medication Instructions Recorded Confirmed Type OMEGA-3 FATTY ACIDS (FISH OIL) 500 mg PO Q DAY #0 04/24/16 07/01/18 History Lacto.acidophilus-Bif.animalis 1 cap PO DAILY 12/15/17 07/01/18 History [Probiotic] loratadine [Claritin] 10 mg PO DAILY PRN 12/15/17 07/01/18 History multivitamin 1 tab PO DAILY 12/15/17 07/01/18 History vitamin B complex 1 tab PO DAILY 12/15/17 07/01/18 History mupirocin 2 % topical ointment 1 applic TOP BID #30 gram 06/14/18 07/01/18 Rx Allergies Allergy/AdvReac Type Severity Reaction Status Date / Time Sulfa (Sulfonamide Allergy Unknown Verified 06/14/18 09:20 Antibiotics) [SULFA (SULFONAMIDE ANTIBIOTICS)] Exam Vital signs: Last Vital Signs Temp 98.0 F 07/22/18 10:21 Pulse 71 07/22/18 10:21 Resp 19 07/22/18 10:21 BP 117/74 07/22/18 10:21 Pulse Ox 100 07/22/18 10:21 ECOG 1 Narrative: Constitutional: WDWN, NAD, thin, pleasant and cooperative, came in by herself. HEENT: NCAT, EOMI, PERRLA, anicteric sclera, no hearing difficulty; oral mucus membrane moist and without ulcers. Neck: Supple, symmetrical, and tracheal midline; No palpable thyromegaly and no palpable lymph nodes. Respiratory: No use of accessory muscles. Clear to auscultation, and no wheezes or rales or rubs. Cardiovascular: Regular rate and rhythm, S1 and S2 normal, no murmurs gallops or rubs. No JVD. Abdomen: Soft, nontender, non-distended, bowel sounds normal, no palpable organomegaly, no hernia, no palpable masses. Lower extremities: No pitting edema of lower extremities. Lymphatic: no palpable lymph nodes in the neck, axillae, or groins. Neurological: Awake and alert and oriented x3. CN II-XII grossly intact. No focal motor or sensory deficit. Psychiatric: Good judgment, good insight, normal affect, normal thought process, cooperative, no depression, no anxiety. Breast exam: right: No nipple retraction, no skin changes, no palpable mass/nodules no palpable lymph nodes in the right axilla. Left: An irregularly shaped semi fixed lobulated mass again noted at the left upper inner quadrant with scab formation and skin discoloration. No open wounds. No secretions. Mild skin erythema around noted. All physical examinations were chaperoned. Results - Labs Laboratory Last Values WBC 2.8 X10^3/uL (4.5-11.0) L 07/22/18 10:03 RBC 3.13 X10^6/uL (4.0-5.2) L 07/22/18 10:03 Hgb 10.2 g/dL (12.0-16.0) L 07/22/18 10:03 Hct 29.4 % (36-46) L 07/22/18 10:03 MCV 94.0 fL (80-100) 07/22/18 10:03 MCH 32.7 PG (26-34) 07/22/18 10:03 MCHC 34.7 % (30-36) 07/22/18 10:03 RDW 12.2 % (11.6-14.8) 07/22/18 10:03 Plt Count 332 X10^3/uL (150-400) 07/22/18 10:03 Neut % (Auto) 49.8 % (50-75) L 07/22/18 10:03 Lymph % (Auto) 34.3 % (25-40) 07/22/18 10:03 [place] % (Auto) 13.1 % (3-14) 07/22/18 10:03 Eos % (Auto) 2.3 % (2-4) 07/22/18 10:03 Baso % (Auto) 0.5 % (0-2) 07/22/18 10:03 Neut # (Auto) 1400 /uL (7851-0613) L 07/22/18 10:03 Lymph # (Auto) 1000 /uL (1489-3088) L 07/22/18 10:03 [place] # (Auto) 400 /uL (0-900) 07/22/18 10:03 Eos # (Auto) 100 /uL (0-450) 07/22/18 10:03 Baso # (Auto) 0 /uL (0-100) 07/22/18 10:03 Sodium 135 mmol/L (137-145) L 07/22/18 10:02 Potassium 3.8 mmol/L (3.4-5.1) 07/22/18 10:02 Chloride 100 mmol/L (98-107) 07/22/18 10:02 Carbon Dioxide 25 mmol/L (22-32) 07/22/18 10:02 BUN 4 mg/dL (7-17) L 07/22/18 10:02 Creatinine 0.40 mg/dL (0.52-1.04) L 07/22/18 10:02 Estimated GFR > 60.0 mL/min (>60) 07/22/18 10:02 BUN/Creatinine Ratio 10.0 (6-22) 07/22/18 10:02 Glucose 83 mg/dL (70-100) 07/22/18 10:02 Calcium 8.8 mg/dL (8.4-10.2) 07/22/18 10:02 Total Bilirubin 0.2 mg/dL (0.2-1.3) 07/22/18 10:02 AST 37 IU/L (14-36) H 07/22/18 10:02 ALT 35 IU/L (9-52) 07/22/18 10:02 Alkaline Phosphatase 73 U/L (38-126) 07/22/18 10:02 Total Protein 7.1 g/dL (6.3-8.2) 07/22/18 10:02 Albumin 4.1 g/dL (3.5-5.0) 07/22/18 10:02 Globulin 3.0 g/dL (1.7-4.1) 07/22/18 10:02 Albumin/Globulin Ratio 1.4 (1.0-2.8) 07/22/18 10:02 Carcinoembryonic Ag 3.4 ng/mL (0.1-3.0) H 07/01/18 09:11 CA 27-29 19 U/mL (< 38) 07/01/18 09:11 Assessment and Plan (1) Triple negative malignant neoplasm of breast Problem details: 1. Localized advanced left triple negative breast cancer diagnosed on 10/09/2015. She underwent neoadjuvant chemotherapy with dose dense AC for 4 cycles followed by weekly paclitaxel/carboplatin completed 05/01/2017. Patient's left breast mass has decreased significantly to the size of a pea, but she chose not to proceed with scheduled surgery, and lost to follow-up. 2. Recurrent locally with skin ulceration and smells at the left breat in 01/2018, confirmed by re-biopy to be TNBC. Restaging CAP showed no distant metastasis. Preoperative chemotherapy was recommended due to concern to close the defect because of the size of the tumor. 3. Weekly carboplatin and paclitaxel 02/22/2018 at [facility] initiated 02/22/2018 Assessment: Recent CT scan is reassuring, demonstrating no metastatic disease in fact there is now some regression of disease specifically primary left breast tumor is now smaller when compared to previous. It is fixed to the chest wall at the upper-inner edge of the turmor. And I will continue current chemotherapy. Today I also sent a secured message to Dr. Bria Wiseman at [facility] for follow up evaluation. Given that the patient has been noncompliant with chemotherapy, I prefer operation early rather than late. The patient will need more adjuvant chemotherapy after surgery. Plan 1. Ok to proceed to Carbo (AUC2)/Paclitaxol (80 mg/m2), now cycle 9, plan for 12 cycles. 2. RTC in 1 week for cycle 10 treatment, MD visit and CBC, CMP, CA27-29, CEA.
--- NOTE | 2018-07-22 09:55 | P.PNONC_ITS ---
PN -Subjective Interval history: Lisa Llamas is a 52-year-old female. She was diagnosed with left breast localized advanced triple negative breast cancer (TNBC) on 10/09/2015. The primary tumor measured 6 x 6 cm at 10:00. She underwent neoadjuvant dose dense AC x 4 cycles followed by weekly Paclitaxel/Carboplatin completed 2016. Patient's left breast mass shrunk to the size of pea. However patient herself chose not to proceed with scheduled surgery, and did not came back for follow-up. In 01/2018, due to re-growth of her left breast tumor with skin ulceration and smells as well as left shoulder pain, she showed up for reevaluation. CT CAP showed no evidence of metastasis in the bone or other locations. She underwent re-biopsy of the left breast cancer on 02/07/2018 and it was confirmed to be TNBC. Preoperative chemotherapy was recommended in anticipation of difficulty closing the big defect if surgery resection upfront. She was started on weekly Carboplatin (AUC 2) and Paclitaxel (80 mg/m2) on 2017 at [facility]. After 5 weekly treatments (, 03/01/2018, 03/08/2018, 03/15/2018 and 03/22/2018 respectively, her left shoulder pain and range of movement improved. 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 On 07/01/2018, because the left breast lump began to grow again with recurrent left shoulder stiffness and left shoulder pain, she presented at [facility] and request to resume chemotherapy. During her visit on 07/01/2018, out of concern for possible left supraclavicular palpable lymph node, repeat CT scan of the chest abdomen pelvis together with CT scan of the neck were obtained to evaluate for possible disease progression or metastasis. Fortunately the CT scan showed no evidence of disease metastasis in the neck or other parts of the body. It also showed that the left breast lump actually is decreasing in size. Today (07/22/2018) she presents for Carboplatin/Paclitaxel cycle 9# treatment. She denies fever or chills. No nausea no vomiting. No diarrhea no constipation. No new pain, no new lumps or bumps. She denies any tingling or numbing of her hands and feet. - Patient Self-Reported Symptoms SR respiratory issues: Cough, Mucous SR Skin issues: Skin rash or itching SR Musculoskeletal issues: Difficulty walking - Additional ROS All systems PM: reviewed and no additional remarkable complaints except as stated Home Medications and Allergies Home Medications Medication Instructions Recorded Confirmed Type OMEGA-3 FATTY ACIDS (FISH OIL) 500 mg PO Q DAY #0 04/24/16 07/01/18 History Lacto.acidophilus-Bif.animalis 1 cap PO DAILY 12/15/17 07/01/18 History [Probiotic] loratadine [Claritin] 10 mg PO DAILY PRN 12/15/17 07/01/18 History multivitamin 1 tab PO DAILY 12/15/17 07/01/18 History vitamin B complex 1 tab PO DAILY 12/15/17 07/01/18 History mupirocin 2 % topical ointment 1 applic TOP BID #30 gram 06/14/18 07/01/18 Rx Allergies Allergy/AdvReac Type Severity Reaction Status Date / Time Sulfa (Sulfonamide Allergy Unknown Verified 06/14/18 09:20 Antibiotics) [SULFA (SULFONAMIDE ANTIBIOTICS)] Exam Vital signs: Last Vital Signs Temp 98.0 F 07/22/18 10:21 Pulse 71 07/22/18 10:21 Resp 19 07/22/18 10:21 BP 117/74 07/22/18 10:21 Pulse Ox 100 07/22/18 10:21 ECOG 1 Narrative: Constitutional: WDWN, NAD, thin, pleasant and cooperative, came in by herself. HEENT: NCAT, EOMI, PERRLA, anicteric sclera, no hearing difficulty; oral mucus membrane moist and without ulcers. Neck: Supple, symmetrical, and tracheal midline; No palpable thyromegaly and no palpable lymph nodes. Respiratory: No use of accessory muscles. Clear to auscultation, and no wheezes or rales or rubs. Cardiovascular: Regular rate and rhythm, S1 and S2 normal, no murmurs gallops or rubs. No JVD. Abdomen: Soft, nontender, non-distended, bowel sounds normal, no palpable organomegaly, no hernia, no palpable masses. Lower extremities: No pitting edema of lower extremities. Lymphatic: no palpable lymph nodes in the neck, axillae, or groins. Neurological: Awake and alert and oriented x3. CN II-XII grossly intact. No focal motor or sensory deficit. Psychiatric: Good judgment, good insight, normal affect, normal thought process , cooperative, no depression, no anxiety. Breast exam: right: No nipple retraction, no skin changes, no palpable mass/ nodules no palpable lymph nodes in the right axilla. Left: An irregularly shaped semi fixed lobulated mass again noted at the left upper inner quadrant with scab formation and skin discoloration. No open wounds. No secretions. Mild skin erythema around noted. All physical examinations were chaperoned. Results - Labs Laboratory Last Values WBC 2.8 X10^3/uL (4.5-11.0) L 07/22/18 10:03 RBC 3.13 X10^6/uL (4.0-5.2) L 07/22/18 10:03 Hgb 10.2 g/dL (12.0-16.0) L 07/22/18 10:03 Hct 29.4 % (36-46) L 07/22/18 10:03 MCV 94.0 fL (80-100) 07/22/18 10:03 MCH 32.7 PG (26-34) 07/22/18 10:03 MCHC 34.7 % (30-36) 07/22/18 10:03 RDW 12.2 % (11.6-14.8) 07/22/18 10:03 Plt Count 332 X10^3/uL (150-400) 07/22/18 10:03 Neut % (Auto) 49.8 % (50-75) L 07/22/18 10:03 Lymph % (Auto) 34.3 % (25-40) 07/22/18 10:03 [place] % (Auto) 13.1 % (3-14) 07/22/18 10:03 Eos % (Auto) 2.3 % (2-4) 07/22/18 10:03 Baso % (Auto) 0.5 % (0-2) 07/22/18 10:03 Neut # (Auto) 1400 /uL (5915-5552) L 07/22/18 10:03 Lymph # (Auto) 1000 /uL (7363-9853) L 07/22/18 10:03 [place] # (Auto) 400 /uL (0-900) 07/22/18 10:03 Eos # (Auto) 100 /uL (0-450) 07/22/18 10:03 Baso # (Auto) 0 /uL (0-100) 07/22/18 10:03 Sodium 135 mmol/L (137-145) L 07/22/18 10:02 Potassium 3.8 mmol/L (3.4-5.1) 07/22/18 10:02 Chloride 100 mmol/L (98-107) 07/22/18 10:02 Carbon Dioxide 25 mmol/L (22-32) 07/22/18 10:02 BUN 4 mg/dL (7-17) L 07/22/18 10:02 Creatinine 0.40 mg/dL (0.52-1.04) L 07/22/18 10:02 Estimated GFR > 60.0 mL/min (>60) 07/22/18 10:02 BUN/Creatinine Ratio 10.0 (6-22) 07/22/18 10:02 Glucose 83 mg/dL (70-100) 07/22/18 10:02 Calcium 8.8 mg/dL (8.4-10.2) 07/22/18 10:02 Total Bilirubin 0.2 mg/dL (0.2-1.3) 07/22/18 10:02 AST 37 IU/L (14-36) H 07/22/18 10:02 ALT 35 IU/L (9-52) 07/22/18 10:02 Alkaline Phosphatase 73 U/L (38-126) 07/22/18 10:02 Total Protein 7.1 g/dL (6.3-8.2) 07/22/18 10:02 Albumin 4.1 g/dL (3.5-5.0) 07/22/18 10:02 Globulin 3.0 g/dL (1.7-4.1) 07/22/18 10:02 Albumin/Globulin Ratio 1.4 (1.0-2.8) 07/22/18 10:02 Carcinoembryonic Ag 3.4 ng/mL (0.1-3.0) H 07/01/18 09:11 CA 27-29 19 U/mL (< 38) 07/01/18 09:11 Assessment and Plan (1) Triple negative malignant neoplasm of breast Problem details: 1. Localized advanced left triple negative breast cancer diagnosed on 2015. She underwent neoadjuvant chemotherapy with dose dense AC for 4 cycles followed by weekly paclitaxel/carboplatin completed 05/01/2017. Patient's left breast mass has decreased significantly to the size of a pea, but she chose not to proceed with scheduled surgery, and lost to follow-up. 2. Recurrent locally with skin ulceration and smells at the left breat in 2017, confirmed by re-biopy to be TNBC. Restaging CAP showed no distant metastasis. Preoperative chemotherapy was recommended due to concern to close the defect because of the size of the tumor. 3. Weekly carboplatin and paclitaxel 02/22/2018 at [facility] initiated 02/22/2018 Assessment: Recent CT scan is reassuring, demonstrating no metastatic disease in fact there is now some regression of disease specifically primary left breast tumor is now smaller when compared to previous. It is fixed to the chest wall at the upper- inner edge of the turmor. And I will continue current chemotherapy. Today I also sent a secured message to Dr. Bria Wiseman at [facility] for follow up evaluation. Given that the patient has been noncompliant with chemotherapy, I prefer operation early rather than late. The patient will need more adjuvant chemotherapy after surgery. Plan 1. Ok to proceed to Carbo (AUC2)/Paclitaxol (80 mg/m2), now cycle 9, plan for 12 cycles. 2. RTC in 1 week for cycle 10 treatment, MD visit and CBC, CMP, CA27-29, CEA.
[2018-07-22 10:20] LABS: Alanine Aminotransferase 35 IU/L (9-52); Albumin 4.1 g/dL (3.5-5.0); Albumin Globulin Ratio 1.4 (1.0-2.8); Alkaline Phosphatase 73 U/L (38-126); Aspartate Aminotransferase 37 IU/L (14-36); Bilirubin Total 0.2 mg/dL (0.2-1.3); Blood Urea Nitrogen 4 mg/dL (7-17); Calcium 8.8 mg/dL (8.4-10.2); Carbon Dioxide 25 mmol/L (22-32); Chloride 100 mmol/L (98-107); Estimated Glomerular Filt Rate > 60.0 mL/min (>60); Glucose 83 mg/dL (70-100); HEMOLYSIS < 15 (0-50); Potassium 3.8 mmol/L (3.4-5.1); Sodium 135 mmol/L (137-145); Total Protein 7.1 g/dL (6.3-8.2)
[2018-07-22 10:21] VITALS: BP 117/74; PULSE 71; RESP 19; TEMP 36.7; O2SAT 100
[2018-07-22 10:30] LABS: Add Manual Diff / Slide Review NO; Basophils Absolute Auto 0 /uL (0-100); Basophils Percent Auto 0.5 % (0-2); Eosinophils Absolute Auto 100 /uL (0-450); Eosinophils Percent Auto 2.3 % (2-4); Hematocrit 29.4 % (36-46); Hemoglobin 10.2 g/dL (12.0-16.0); Lymphocytes Absolute Auto 1000 /uL (1100-4500); Lymphocytes Percent Auto 34.3 % (25-40); Mean Corpuscular HGB Conc 34.7 % (30-36); Mean Corpuscular Hemoglobin 32.7 PG (26-34); Monocytes Absolute Auto 400 /uL (0-900); Monocytes Percent Auto 13.1 % (3-14); Neutrophils Absolute Auto 1400 /uL (1500-7000); Neutrophils Percent Auto 49.8 % (50-75); Platelet Count 332 X10^3/uL (150-400); Red Blood Cell Count 3.13 X10^6/uL (4.0-5.2); Red Cell Distribution Width 12.2 % (11.6-14.8); White Blood Cell Count 2.8 X10^3/uL (4.5-11.0)
[2018-07-22] MEDS: ACETAMINOPHEN 325 MG TABLET 650 MG PO (10:49)
[2018-07-22] MEDS: diphenhydrAMINE 25 MG TABLET PO (10:49)
[2018-07-22] MEDS: DEXAMETHASONE 10 MG/ML VIAL IV (10:50)
[2018-07-22] MEDS: ONDANSETRON 16 MG in SODIUM CHLORIDE 0.9% 50 ML 232 ML IV (11:08)
[2018-07-22] MEDS: FAMOTIDINE 20 MG/50 ML PIGGYBACK 200 MG IV (11:32)
[2018-07-22] MEDS: SODIUM CHLORIDE 0.9% 100 ML 21 ML IV (11:33)
[2018-07-22] MEDS: PACLITAXEL IV (12:18)
[2018-07-22] MEDS: DEXTROSE 5% IV (12:18)
[2018-07-22] MEDS: CARBOPLATIN IV (13:38)
[2018-07-22] MEDS: SODIUM CHLORIDE 0.9% IV (13:38)
[2018-07-29 09:05] LABS: Add Manual Diff / Slide Review NO; Basophils Absolute Auto 0 /uL (0-100); Basophils Percent Auto 0.4 % (0-2); Eosinophils Absolute Auto 100 /uL (0-450); Eosinophils Percent Auto 2.8 % (2-4); Hematocrit 28.9 % (36-46); Lymphocytes Absolute Auto 900 /uL (1100-4500); Lymphocytes Percent Auto 33.4 % (25-40); Mean Corpuscular HGB Conc 34.7 % (30-36); Mean Corpuscular Hemoglobin 32.5 PG (26-34); Mean Corpuscular Volume 93.7 fL (80-100); Monocytes Absolute Auto 200 /uL (0-900); Monocytes Percent Auto 6.8 % (3-14); Neutrophils Absolute Auto 1600 /uL (1500-7000); Neutrophils Percent Auto 56.6 % (50-75); Platelet Count 253 X10^3/uL (150-400); Red Blood Cell Count 3.08 X10^6/uL (4.0-5.2); Red Cell Distribution Width 12.8 % (11.6-14.8); White Blood Cell Count 2.8 X10^3/uL (4.5-11.0)
[2018-07-29 09:19] LABS: Alanine Aminotransferase 31 IU/L (9-52); Albumin Globulin Ratio 1.4 (1.0-2.8); Alkaline Phosphatase 66 U/L (38-126); Aspartate Aminotransferase 33 IU/L (14-36); Bilirubin Total 0.2 mg/dL (0.2-1.3); Blood Urea Nitrogen 3 mg/dL (7-17); Calcium 8.6 mg/dL (8.4-10.2); Carbon Dioxide 28 mmol/L (22-32); Chloride 97 mmol/L (98-107); Estimated Glomerular Filt Rate > 60.0 mL/min (>60); Globulin 2.8 g/dL (1.7-4.1); Glucose 83 mg/dL (70-100); HEMOLYSIS < 15 (0-50); Potassium 3.7 mmol/L (3.4-5.1); Sodium 132 mmol/L (137-145); Total Protein 6.8 g/dL (6.3-8.2)
[2018-07-29 09:24] VITALS: BP 123/77; PULSE 85; RESP 20; TEMP 36.7; O2SAT 100
--- NOTE | 2018-07-29 09:27 | ONC.PN ---
PN -Subjective Interval history: Today (07/29/2018) she presents for Carboplatin/Paclitaxel cycle 10# treatment. She reports a little bit more tired than before. She denies fever or chills. No nausea no vomiting. No diarrhea no constipation. No new pain, no new lumps or bumps. She denies any tingling or numbing of her hands and feet. Patient saw Dr. Bria Wiseman at the [facility]. And the plan is to proceed to surgery after the next 3 cycles of carboplatin/paclitaxel. Patient is also going to see Dr. Villasenor, our thoracic surgeon, because of suspicion of invasion of the left chest wall. Oncology History: Lisa Llamas is a 52-year-old female. She was diagnosed with left breast localized advanced triple negative breast cancer (TNBC) on 10/09/2015. The primary tumor measured 6 x 6 cm at 10:00. She underwent neoadjuvant dose dense AC x 4 cycles followed by weekly Paclitaxel/Carboplatin completed 05/01/2017. Patient's left breast mass shrunk to the size of pea. However patient herself chose not to proceed with scheduled surgery, and did not came back for follow-up. In 01/2018, due to re-growth of her left breast tumor with skin ulceration and smells as well as left shoulder pain, she showed up for reevaluation. CT CAP showed no evidence of metastasis in the bone or other locations. She underwent re-biopsy of the left breast cancer on 02/07/2018 and it was confirmed to be TNBC. Preoperative chemotherapy was recommended in anticipation of difficulty closing the big defect if surgery resection upfront. She was started on weekly Carboplatin (AUC 2) and Paclitaxel (80 mg/m2) on 02/22/2018 at [facility]. After 5 weekly treatments (02/22/2018, 03/01/2018, 03/08/2018, 03/15/2018 and 03/22/2018 respectively, her left shoulder pain and range of movement improved. 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 On 07/01/2018, because the left breast lump began to grow again with recurrent left shoulder stiffness and left shoulder pain, she presented at [facility] and request to resume chemotherapy. During her visit on 07/01/2018, out of concern for possible left supraclavicular palpable lymph node, repeat CT scan of the chest abdomen pelvis together with CT scan of the neck were obtained to evaluate for possible disease progression or metastasis. Fortunately the CT scan showed no evidence of disease metastasis in the neck or other parts of the body. It also showed that the left breast lump actually is decreasing in size. - Patient Self-Reported Symptoms SR respiratory issues: Cough, Mucous SR Skin issues: Skin rash or itching SR Musculoskeletal issues: Difficulty walking - Additional ROS All systems PM: reviewed and no additional remarkable complaints except as stated Home Medications and Allergies Home Medications Medication Instructions Recorded Confirmed Type OMEGA-3 FATTY ACIDS (FISH OIL) 500 mg PO Q DAY #0 04/24/16 07/29/18 History Lacto.acidophilus-Bif.animalis 1 cap PO DAILY 12/15/17 07/29/18 History [Probiotic] loratadine [Claritin] 10 mg PO DAILY PRN 12/15/17 07/29/18 History multivitamin 1 tab PO DAILY 12/15/17 07/29/18 History vitamin B complex 1 tab PO DAILY 12/15/17 07/29/18 History mupirocin 2 % topical ointment 1 applic TOP BID #30 gram 06/14/18 07/29/18 Rx acetaminophen [Tylenol] 325 mg PO DAILY 07/29/18 07/29/18 History Allergies Allergy/AdvReac Type Severity Reaction Status Date / Time Sulfa (Sulfonamide Allergy Unknown Verified 06/14/18 09:20 Antibiotics) [SULFA (SULFONAMIDE ANTIBIOTICS)] Exam Vital signs: Last Vital Signs Temp 98.0 F 07/29/18 09:24 Pulse 85 07/29/18 09:24 Resp 20 07/29/18 09:24 BP 123/77 07/29/18 09:24 Pulse Ox 100 07/29/18 09:24 ECOG 1 Narrative: Constitutional: WDWN, NAD, thin, pleasant and cooperative, came in by herself. HEENT: NCAT, EOMI, PERRLA, anicteric sclera, no hearing difficulty; oral mucus membrane moist and without ulcers. Neck: Supple, symmetrical, and tracheal midline; No palpable thyromegaly and no palpable lymph nodes. Respiratory: No use of accessory muscles. Clear to auscultation, and no wheezes or rales or rubs. Cardiovascular: Regular rate and rhythm, S1 and S2 normal, no murmurs gallops or rubs. No JVD. Abdomen: Soft, nontender, non-distended, bowel sounds normal, no palpable organomegaly, no hernia, no palpable masses. Lower extremities: No pitting edema of lower extremities. Lymphatic: no palpable lymph nodes in the neck, axillae, or groins. Neurological: Awake and alert and oriented x3. CN II-XII grossly intact. No focal motor or sensory deficit. Psychiatric: Good judgment, good insight, normal affect, normal thought process, cooperative, no depression, no anxiety. Breast exam: only examined the left: An irregularly shaped semi fixed lobulated mass again noted at the left upper inner quadrant with scab formation and skin discoloration. No open wounds. No secretions. Mild skin erythema around noted. No changes compared to last week. All physical examinations were chaperoned. Results - Labs Laboratory Last Values WBC 2.8 X10^3/uL (4.5-11.0) L 07/29/18 09:00 RBC 3.08 X10^6/uL (4.0-5.2) L 07/29/18 09:00 Hgb 10.0 g/dL (12.0-16.0) L 07/29/18 09:00 Hct 28.9 % (36-46) L 07/29/18 09:00 MCV 93.7 fL (80-100) 07/29/18 09:00 MCH 32.5 PG (26-34) 07/29/18 09:00 MCHC 34.7 % (30-36) 07/29/18 09:00 RDW 12.8 % (11.6-14.8) 07/29/18 09:00 Plt Count 253 X10^3/uL (150-400) 07/29/18 09:00 Neut % (Auto) 56.6 % (50-75) 07/29/18 09:00 Lymph % (Auto) 33.4 % (25-40) 07/29/18 09:00 Towner % (Auto) 6.8 % (3-14) 07/29/18 09:00 Eos % (Auto) 2.8 % (2-4) 07/29/18 09:00 Baso % (Auto) 0.4 % (0-2) 07/29/18 09:00 Neut # (Auto) 1600 /uL (3482-5759) 07/29/18 09:00 Lymph # (Auto) 900 /uL (5897-7091) L 07/29/18 09:00 Towner # (Auto) 200 /uL (0-900) 07/29/18 09:00 Eos # (Auto) 100 /uL (0-450) 07/29/18 09:00 Baso # (Auto) 0 /uL (0-100) 07/29/18 09:00 Sodium 132 mmol/L (137-145) L 07/29/18 09:00 Potassium 3.7 mmol/L (3.4-5.1) 07/29/18 09:00 Chloride 97 mmol/L (98-107) L 07/29/18 09:00 Carbon Dioxide 28 mmol/L (22-32) 07/29/18 09:00 BUN 3 mg/dL (7-17) L 07/29/18 09:00 Creatinine 0.50 mg/dL (0.52-1.04) L 07/29/18 09:00 Estimated GFR > 60.0 mL/min (>60) 07/29/18 09:00 BUN/Creatinine Ratio 6.0 (6-22) 07/29/18 09:00 Glucose 83 mg/dL (70-100) 07/29/18 09:00 Calcium 8.6 mg/dL (8.4-10.2) 07/29/18 09:00 Total Bilirubin 0.2 mg/dL (0.2-1.3) 07/29/18 09:00 AST 33 IU/L (14-36) 07/29/18 09:00 ALT 31 IU/L (9-52) 07/29/18 09:00 Alkaline Phosphatase 66 U/L (38-126) 07/29/18 09:00 Total Protein 6.8 g/dL (6.3-8.2) 07/29/18 09:00 Albumin 4.0 g/dL (3.5-5.0) 07/29/18 09:00 Globulin 2.8 g/dL (1.7-4.1) 07/29/18 09:00 Albumin/Globulin Ratio 1.4 (1.0-2.8) 07/29/18 09:00 Carcinoembryonic Ag 3.4 ng/mL (0.1-3.0) H 07/01/18 09:11 CA 27-29 19 U/mL (< 38) 07/01/18 09:11 Assessment and Plan (1) Triple negative malignant neoplasm of breast Problem details: 1. Localized advanced left triple negative breast cancer diagnosed on 10/09/2015. She underwent neoadjuvant chemotherapy with dose dense AC for 4 cycles followed by weekly paclitaxel/carboplatin completed 05/01/2017. Patient's left breast mass has decreased significantly to the size of a pea, but she chose not to proceed with scheduled surgery, and lost to follow-up. 2. Recurrent locally with skin ulceration and smells at the left breat in 01/2018, confirmed by re-biopy to be TNBC. Restaging CAP showed no distant metastasis. Preoperative chemotherapy was recommended due to concern to close the defect because of the size of the tumor. 3. Weekly carboplatin and paclitaxel 02/22/2018 at [facility] initiated 02/22/2018 Assessment: Patient has tolerated the chemotherapy very well. I reviewed the lab tests with the patient. I also reviewed the overall plan after she saw Dr. Bria Wiseman at the [facility]. I talked with her that she will need the surgery. After the surgery, I am planning to give her more adjuvant chemotherapy. Then, she will need radiation therapy. Patient voiced understanding.. Plan 1. Ok to proceed to Carbo (AUC2)/Paclitaxol (80 mg/m2), now cycle 10, plan for 12 cycles. 2. RTC in 1 week for cycle 11 treatment, CBC, CMP, see GOVERNMENT AFFAIRS DIRECTOR Meghann 3. RTC in 2 weeks for cycle 12 treatment, CBC, CMP.
--- NOTE | 2018-07-29 09:39 | P.PNONC_ITS ---
PN -Subjective Interval history: Today (07/29/2018) she presents for Carboplatin/Paclitaxel cycle 10# treatment. She reports a little bit more tired than before. She denies fever or chills. No nausea no vomiting. No diarrhea no constipation. No new pain, no new lumps or bumps. She denies any tingling or numbing of her hands and feet. Patient saw Dr. Bria Wiseman at the [facility]. And the plan is to proceed to surgery after the next 3 cycles of carboplatin/paclitaxel. Patient is also going to see Dr. Villasenor, our thoracic surgeon, because of suspicion of invasion of the left chest wall. Oncology History: Lisa Llamas is a 52-year-old female. She was diagnosed with left breast localized advanced triple negative breast cancer (TNBC) on 10/09/2015. The primary tumor measured 6 x 6 cm at 10:00. She underwent neoadjuvant dose dense AC x 4 cycles followed by weekly Paclitaxel/Carboplatin completed 2016. Patient's left breast mass shrunk to the size of pea. However patient herself chose not to proceed with scheduled surgery, and did not came back for follow-up. In 01/2018, due to re-growth of her left breast tumor with skin ulceration and smells as well as left shoulder pain, she showed up for reevaluation. CT CAP showed no evidence of metastasis in the bone or other locations. She underwent re-biopsy of the left breast cancer on 02/07/2018 and it was confirmed to be TNBC. Preoperative chemotherapy was recommended in anticipation of difficulty closing the big defect if surgery resection upfront. She was started on weekly Carboplatin (AUC 2) and Paclitaxel (80 mg/m2) on 2017 at [facility]. After 5 weekly treatments (, 03/01/2018, 03/08/2018, 03/15/2018 and 03/22/2018 respectively, her left shoulder pain and range of movement improved. 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 On 07/01/2018, because the left breast lump began to grow again with recurrent left shoulder stiffness and left shoulder pain, she presented at [facility] and request to resume chemotherapy. During her visit on 07/01/2018, out of concern for possible left supraclavicular palpable lymph node, repeat CT scan of the chest abdomen pelvis together with CT scan of the neck were obtained to evaluate for possible disease progression or metastasis. Fortunately the CT scan showed no evidence of disease metastasis in the neck or other parts of the body. It also showed that the left breast lump actually is decreasing in size. - Patient Self-Reported Symptoms SR respiratory issues: Cough, Mucous SR Skin issues: Skin rash or itching SR Musculoskeletal issues: Difficulty walking - Additional ROS All systems PM: reviewed and no additional remarkable complaints except as stated Home Medications and Allergies Home Medications Medication Instructions Recorded Confirmed Type OMEGA-3 FATTY ACIDS (FISH OIL) 500 mg PO Q DAY #0 04/24/16 07/29/18 History Lacto.acidophilus-Bif.animalis 1 cap PO DAILY 12/15/17 07/29/18 History [Probiotic] loratadine [Claritin] 10 mg PO DAILY PRN 12/15/17 07/29/18 History multivitamin 1 tab PO DAILY 12/15/17 07/29/18 History vitamin B complex 1 tab PO DAILY 12/15/17 07/29/18 History mupirocin 2 % topical ointment 1 applic TOP BID #30 gram 06/14/18 07/29/18 Rx acetaminophen [Tylenol] 325 mg PO DAILY 07/29/18 07/29/18 History Allergies Allergy/AdvReac Type Severity Reaction Status Date / Time Sulfa (Sulfonamide Allergy Unknown Verified 06/14/18 09:20 Antibiotics) [SULFA (SULFONAMIDE ANTIBIOTICS)] Exam Vital signs: Last Vital Signs Temp 98.0 F 07/29/18 09:24 Pulse 85 07/29/18 09:24 Resp 20 07/29/18 09:24 BP 123/77 07/29/18 09:24 Pulse Ox 100 07/29/18 09:24 ECOG 1 Narrative: Constitutional: WDWN, NAD, thin, pleasant and cooperative, came in by herself. HEENT: NCAT, EOMI, PERRLA, anicteric sclera, no hearing difficulty; oral mucus membrane moist and without ulcers. Neck: Supple, symmetrical, and tracheal midline; No palpable thyromegaly and no palpable lymph nodes. Respiratory: No use of accessory muscles. Clear to auscultation, and no wheezes or rales or rubs. Cardiovascular: Regular rate and rhythm, S1 and S2 normal, no murmurs gallops or rubs. No JVD. Abdomen: Soft, nontender, non-distended, bowel sounds normal, no palpable organomegaly, no hernia, no palpable masses. Lower extremities: No pitting edema of lower extremities. Lymphatic: no palpable lymph nodes in the neck, axillae, or groins. Neurological: Awake and alert and oriented x3. CN II-XII grossly intact. No focal motor or sensory deficit. Psychiatric: Good judgment, good insight, normal affect, normal thought process , cooperative, no depression, no anxiety. Breast exam: only examined the left: An irregularly shaped semi fixed lobulated mass again noted at the left upper inner quadrant with scab formation and skin discoloration. No open wounds. No secretions. Mild skin erythema around noted. No changes compared to last week. All physical examinations were chaperoned. Results - Labs Laboratory Last Values WBC 2.8 X10^3/uL (4.5-11.0) L 07/29/18 09:00 RBC 3.08 X10^6/uL (4.0-5.2) L 07/29/18 09:00 Hgb 10.0 g/dL (12.0-16.0) L 07/29/18 09:00 Hct 28.9 % (36-46) L 07/29/18 09:00 MCV 93.7 fL (80-100) 07/29/18 09:00 MCH 32.5 PG (26-34) 07/29/18 09:00 MCHC 34.7 % (30-36) 07/29/18 09:00 RDW 12.8 % (11.6-14.8) 07/29/18 09:00 Plt Count 253 X10^3/uL (150-400) 07/29/18 09:00 Neut % (Auto) 56.6 % (50-75) 07/29/18 09:00 Lymph % (Auto) 33.4 % (25-40) 07/29/18 09:00 Wilkinson % (Auto) 6.8 % (3-14) 07/29/18 09:00 Eos % (Auto) 2.8 % (2-4) 07/29/18 09:00 Baso % (Auto) 0.4 % (0-2) 07/29/18 09:00 Neut # (Auto) 1600 /uL (7497-5735) 07/29/18 09:00 Lymph # (Auto) 900 /uL (7226-7165) L 07/29/18 09:00 Wilkinson # (Auto) 200 /uL (0-900) 07/29/18 09:00 Eos # (Auto) 100 /uL (0-450) 07/29/18 09:00 Baso # (Auto) 0 /uL (0-100) 07/29/18 09:00 Sodium 132 mmol/L (137-145) L 07/29/18 09:00 Potassium 3.7 mmol/L (3.4-5.1) 07/29/18 09:00 Chloride 97 mmol/L (98-107) L 07/29/18 09:00 Carbon Dioxide 28 mmol/L (22-32) 07/29/18 09:00 BUN 3 mg/dL (7-17) L 07/29/18 09:00 Creatinine 0.50 mg/dL (0.52-1.04) L 07/29/18 09:00 Estimated GFR > 60.0 mL/min (>60) 07/29/18 09:00 BUN/Creatinine Ratio 6.0 (6-22) 07/29/18 09:00 Glucose 83 mg/dL (70-100) 07/29/18 09:00 Calcium 8.6 mg/dL (8.4-10.2) 07/29/18 09:00 Total Bilirubin 0.2 mg/dL (0.2-1.3) 07/29/18 09:00 AST 33 IU/L (14-36) 07/29/18 09:00 ALT 31 IU/L (9-52) 07/29/18 09:00 Alkaline Phosphatase 66 U/L (38-126) 07/29/18 09:00 Total Protein 6.8 g/dL (6.3-8.2) 07/29/18 09:00 Albumin 4.0 g/dL (3.5-5.0) 07/29/18 09:00 Globulin 2.8 g/dL (1.7-4.1) 07/29/18 09:00 Albumin/Globulin Ratio 1.4 (1.0-2.8) 07/29/18 09:00 Carcinoembryonic Ag 3.4 ng/mL (0.1-3.0) H 07/01/18 09:11 CA 27-29 19 U/mL (< 38) 07/01/18 09:11 Assessment and Plan (1) Triple negative malignant neoplasm of breast Problem details: 1. Localized advanced left triple negative breast cancer diagnosed on 2015. She underwent neoadjuvant chemotherapy with dose dense AC for 4 cycles followed by weekly paclitaxel/carboplatin completed 05/01/2017. Patient's left breast mass has decreased significantly to the size of a pea, but she chose not to proceed with scheduled surgery, and lost to follow-up. 2. Recurrent locally with skin ulceration and smells at the left breat in 2017, confirmed by re-biopy to be TNBC. Restaging CAP showed no distant metastasis. Preoperative chemotherapy was recommended due to concern to close the defect because of the size of the tumor. 3. Weekly carboplatin and paclitaxel 02/22/2018 at [facility] initiated 02/22/2018 Assessment: Patient has tolerated the chemotherapy very well. I reviewed the lab tests with the patient. I also reviewed the overall plan after she saw Dr. Bria Wiseman at the [facility]. I talked with her that she will need the surgery. After the surgery, I am planning to give her more adjuvant chemotherapy. Then, she will need radiation therapy. Patient voiced understanding.. Plan 1. Ok to proceed to Carbo (AUC2)/Paclitaxol (80 mg/m2), now cycle 10, plan for 12 cycles. 2. RTC in 1 week for cycle 11 treatment, CBC, CMP, see STAFF GENETIC COUNSELOR Meghann 3. RTC in 2 weeks for cycle 12 treatment, CBC, CMP.
[2018-07-29] MEDS: ACETAMINOPHEN 325 MG TABLET 650 MG PO (10:04)
[2018-07-29] MEDS: diphenhydrAMINE 25 MG TABLET PO (10:04)
[2018-07-29] MEDS: DEXAMETHASONE 10 MG/ML VIAL IV (10:04)
[2018-07-29] MEDS: SODIUM CHLORIDE 0.9% 100 ML 21 ML IV (10:05)
[2018-07-29] MEDS: ONDANSETRON 16 MG in SODIUM CHLORIDE 0.9% 50 ML 232 ML IV (10:19)
[2018-07-29] MEDS: FAMOTIDINE 20 MG/50 ML PIGGYBACK 200 MG IV (10:41)
[2018-07-29] MEDS: PACLITAXEL IV (11:32)
[2018-07-29] MEDS: DEXTROSE 5% IV (11:32)
[2018-07-29] MEDS: CARBOPLATIN IV (12:49)
[2018-07-29] MEDS: SODIUM CHLORIDE 0.9% IV (12:49)
[2018-08-18 08:27] LABS: Add Manual Diff / Slide Review NO; Basophils Absolute Auto 100 /uL (0-100); Basophils Percent Auto 1.4 % (0-2); Eosinophils Absolute Auto 100 /uL (0-450); Eosinophils Percent Auto 2.9 % (2-4); Hematocrit 31.6 % (36-46); Hemoglobin 10.7 g/dL (12.0-16.0); Lymphocytes Absolute Auto 1000 /uL (1100-4500); Lymphocytes Percent Auto 29.3 % (25-40); Mean Corpuscular Hemoglobin 32.3 PG (26-34); Mean Corpuscular Volume 95.1 fL (80-100); Monocytes Absolute Auto 300 /uL (0-900); Monocytes Percent Auto 8.2 % (3-14); Neutrophils Absolute Auto 2100 /uL (1500-7000); Neutrophils Percent Auto 58.2 % (50-75); Platelet Count 353 X10^3/uL (150-400); Red Blood Cell Count 3.32 X10^6/uL (4.0-5.2); Red Cell Distribution Width 15.8 % (11.6-14.8); White Blood Cell Count 3.6 X10^3/uL (4.5-11.0)
[2018-08-18 08:31] VITALS: BP 112/78; PULSE 78; RESP 18; TEMP 36.4; O2SAT 100
--- NOTE | 2018-08-18 08:31 | P.PNONC_ITS ---
PN -Subjective Interval history: DIAGNOSIS: Locally advanced triple negative breast cancer originally diagnosed October 09, 2015. The patient presents for Carboplatin/Paclitaxel cycle 11# treatment. She has noticed often on for the last 7-10 days urinary frequency also urgency and some pain with urination specifically burning. She states that does feel similar to urinary tract infections she has had in the past. No fever or chills. No nausea. No abdominal pain. No back pain. No blood noted in urine. Appetite is stable, weight is stable as well. No skin changes. No pain numbness or tingling in her hands or feet. Activity tolerance remains stable. No new pain, no new lumps or bumps. She is still working full-time at preschool. Patient did meet with surgeon Dr Berman at [facility] also has an appointment September 08 to meet with the thoracic surgeon at [facility] as well. She is hoping for surgery the last week in August, the thoracic surgeon and Dr. Berman will be coordinating this schedule. CT scan dated July 05, 2018 demonstrated appropriate response to treatment with diminishing size of left breast lesion, no evidence of metastatic disease. This was a reflection of Oncology History: Lisa Llamas is a 52-year-old female. She was diagnosed with left breast localized advanced triple negative breast cancer (TNBC) on 10/09/2015. The primary tumor measured 6 x 6 cm at 10:00. She underwent neoadjuvant dose dense AC x 4 cycles followed by weekly Paclitaxel/Carboplatin completed 05/01/2017. Patient's left breast mass shrunk to the size of pea. However patient herself chose not to proceed with scheduled surgery, and did not came back for follow- up. In 01/2018, due to re-growth of her left breast tumor with skin ulceration and smells as well as left shoulder pain, she showed up for reevaluation. CT CAP showed no evidence of metastasis in the bone or other locations. She underwent re-biopsy of the left breast cancer on 02/07/2018 and it was confirmed to be TNBC. Preoperative chemotherapy was recommended in anticipation of difficulty closing the big defect if surgery resection upfront. She was started on weekly Carboplatin (AUC 2) and Paclitaxel (80 mg/m2) on 02/22/2018 at [facility]. After 5 weekly treatments (02/22/2018, 03/01/2018, 03/08/2018, 03/15/2018 and 03/22/2018 respectively, her left shoulder pain and range of movement improved. 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 On 07/01/2018, because the left breast lump began to grow again with recurrent left shoulder stiffness and left shoulder pain, she presented at [email or web address] and request to resume chemotherapy. During her visit on 07/01/2018, out of concern for possible left supraclavicular palpable lymph node, repeat CT scan of the chest abdomen pelvis together with CT scan of the neck were obtained to evaluate for possible disease progression or metastasis. Fortunately the CT scan showed no evidence of disease metastasis in the neck or other parts of the body. It also showed that the left breast lump actually is decreasing in size. - Patient Self-Reported Symptoms SR respiratory issues: Cough, Mucous SR Skin issues: Skin rash or itching SR Musculoskeletal issues: Difficulty walking Home Medications and Allergies Home Medications Medication Instructions Recorded Confirmed Type OMEGA-3 FATTY ACIDS (FISH OIL) 500 mg PO Q DAY #0 04/24/16 07/29/18 History Lacto.acidophilus-Bif.animalis 1 cap PO DAILY 12/15/17 07/29/18 History [Probiotic] loratadine [Claritin] 10 mg PO DAILY PRN 12/15/17 07/29/18 History multivitamin 1 tab PO DAILY 12/15/17 07/29/18 History vitamin B complex 1 tab PO DAILY 12/15/17 07/29/18 History mupirocin 2 % topical ointment 1 applic TOP BID #30 gram 06/14/18 07/29/18 Rx acetaminophen [Tylenol] 325 mg PO DAILY 07/29/18 07/29/18 History nitrofurantoin monohyd/m-cryst 100 mg PO Q12H #10 cap 08/18/18 Rx [Macrobid] Allergies Allergy/AdvReac Type Severity Reaction Status Date / Time Sulfa (Sulfonamide Allergy Unknown Verified 06/14/18 09:20 Antibiotics) [SULFA (SULFONAMIDE ANTIBIOTICS)] Exam - Constitutional positive no acute distress - Routine HEENT Exam Eye: Present: conjunctivae pink. Absent: conjunctival icterus, scleral injection ENT: Present: mucous membranes moist, oropharynx clear - Routine Neck Exam Present: supple. Absent: lymphadenopathy - Routine Chest/Breast/Axilla Exam Axillae: Absent: lymphadenopathy, mass, tenderness - Routine Respiratory Exam Present: Clear to auscultation bilaterally. Absent: rales, rhonchi, wheezes - Routine Cardiovascular Exam Present: RRR, S1, S2. Absent: murmur, gallop, rubs, JVD - Routine Abdominal Exam Present: soft, normoactive bowel sounds. Absent: tenderness, distended, organomegaly Palpation/Percussion: Absent: fluid waves - Routine Extremities Exam Absent: edema, calf tenderness - Routine Back/Spine Exam Back/Spine: Absent: CVA tenderness - Routine Skin Exam Present: intact, normal turgor. Absent: petechiae, rash - Routine Neurological Exam Present: alert, oriented X3 - Routine Psychiatric Exam Present: normal affect Results - Labs Laboratory Last Values WBC 3.6 X10^3/uL (4.5-11.0) L 08/18/18 08:15 RBC 3.32 X10^6/uL (4.0-5.2) L 08/18/18 08:15 Hgb 10.7 g/dL (12.0-16.0) L 08/18/18 08:15 Hct 31.6 % (36-46) L 08/18/18 08:15 MCV 95.1 fL (80-100) 08/18/18 08:15 MCH 32.3 PG (26-34) 08/18/18 08:15 MCHC 34.0 % (30-36) 08/18/18 08:15 RDW 15.8 % (11.6-14.8) H 08/18/18 08:15 Plt Count 353 X10^3/uL (150-400) 08/18/18 08:15 Neut % (Auto) 58.2 % (50-75) 08/18/18 08:15 Lymph % (Auto) 29.3 % (25-40) 08/18/18 08:15 [place] % (Auto) 8.2 % (3-14) 08/18/18 08:15 Eos % (Auto) 2.9 % (2-4) 08/18/18 08:15 Baso % (Auto) 1.4 % (0-2) 08/18/18 08:15 Neut # (Auto) 2100 /uL (9604-7343) 08/18/18 08:15 Lymph # (Auto) 1000 /uL (3657-1926) L 08/18/18 08:15 [place] # (Auto) 300 /uL (0-900) 08/18/18 08:15 Eos # (Auto) 100 /uL (0-450) 08/18/18 08:15 Baso # (Auto) 100 /uL (0-100) 08/18/18 08:15 Sodium 132 mmol/L (137-145) L 07/29/18 09:00 Potassium 3.7 mmol/L (3.4-5.1) 07/29/18 09:00 Chloride 97 mmol/L (98-107) L 07/29/18 09:00 Carbon Dioxide 28 mmol/L (22-32) 07/29/18 09:00 BUN 3 mg/dL (7-17) L 07/29/18 09:00 Creatinine 0.50 mg/dL (0.52-1.04) L 07/29/18 09:00 Estimated GFR > 60.0 mL/min (>60) 07/29/18 09:00 BUN/Creatinine Ratio 6.0 (6-22) 07/29/18 09:00 Glucose 83 mg/dL (70-100) 07/29/18 09:00 Calcium 8.6 mg/dL (8.4-10.2) 07/29/18 09:00 Total Bilirubin 0.2 mg/dL (0.2-1.3) 07/29/18 09:00 AST 33 IU/L (14-36) 07/29/18 09:00 ALT 31 IU/L (9-52) 07/29/18 09:00 Alkaline Phosphatase 66 U/L (38-126) 07/29/18 09:00 Total Protein 6.8 g/dL (6.3-8.2) 07/29/18 09:00 Albumin 4.0 g/dL (3.5-5.0) 07/29/18 09:00 Globulin 2.8 g/dL (1.7-4.1) 07/29/18 09:00 Albumin/Globulin Ratio 1.4 (1.0-2.8) 07/29/18 09:00 Carcinoembryonic Ag 3.4 ng/mL (0.1-3.0) H 07/01/18 09:11 CA 27-29 19 U/mL (< 38) 07/01/18 09:11 Assessment and Plan (1) Triple negative malignant neoplasm of breast Problem details: 1. Localized advanced left triple negative breast cancer diagnosed on 10/09/2015. She underwent neoadjuvant chemotherapy with dose dense AC for 4 cycles followed by weekly paclitaxel/carboplatin completed 05/01/2017. Patient's left breast mass has decreased significantly to the size of a pea, but she chose not to proceed with scheduled surgery, and lost to follow-up. 2. Recurrent locally with skin ulceration and smells at the left breat in 01/2018, confirmed by re-biopy to be TNBC. Restaging CAP showed no distant metastasis. Preoperative chemotherapy was recommended due to concern to close the defect because of the size of the tumor. 3. Weekly carboplatin and paclitaxel 02/22/2018 at [facility] initiated 02/22/2018 Assessment: Patient continues to tolerate the chemotherapy very well. CBC and CMP remain stable, unremarkable. Patient has met with surgeon Dr. Berman has upcoming appointment September 08 with thoracic surgeon patient is hoping for her surgery the end of August. After the surgery, Dr Andujar discussed plan to give her more adjuvant chemotherapy. Then, she will need radiation therapy. Patient voiced understanding.. Plan 1. Ok to proceed to Carbo (AUC2)/Paclitaxol (80 mg/m2), now cycle 11, plan for 12 cycles. 2. RTC in 1 week for cycle 12 treatment, CBC, CMP, see Dr Andujar 3. Follow-up with surgeon as planned. (2) Dysuria Current visit: Yes Status: Acute Patient reports often on urinary frequency, pain and burning with urination for the past week or so. No fever or chills. No back pain. No nausea or abdominal pain. Patient states this does feel similar to previous urinary tract infections she has had in the past. I will check a UA. CBC demonstrates a white count of 3.6 with neutrophils of 2100. I will go ahead and cover the patient for an uncomplicated urinary tract infection with a 5 day course of Macrobid. She understands if her symptoms worsen or do not improve or if at any time she develops fever or chills she is to call the clinic or go to ER.
[2018-08-18 08:39] LABS: Alanine Aminotransferase 50 IU/L (9-52); Albumin 3.9 g/dL (3.5-5.0); Albumin Globulin Ratio 1.3 (1.0-2.8); Alkaline Phosphatase 68 U/L (38-126); Aspartate Aminotransferase 48 IU/L (14-36); Bilirubin Total 0.2 mg/dL (0.2-1.3); Blood Urea Nitrogen 3 mg/dL (7-17); Calcium 8.7 mg/dL (8.4-10.2); Carbon Dioxide 27 mmol/L (22-32); Chloride 98 mmol/L (98-107); Estimated Glomerular Filt Rate > 60.0 mL/min (>60); Globulin 2.9 g/dL (1.7-4.1); Glucose 84 mg/dL (70-100); HEMOLYSIS < 15 (0-50); Potassium 3.9 mmol/L (3.4-5.1); Sodium 134 mmol/L (137-145); Total Protein 6.8 g/dL (6.3-8.2)
[2018-08-18] MEDS: SODIUM CHLORIDE 0.9% 100 ML 21 ML IV (09:24)
[2018-08-18] MEDS: DEXAMETHASONE 10 MG/ML VIAL IV (09:25)
[2018-08-18] MEDS: ACETAMINOPHEN 325 MG TABLET 650 MG PO (09:25)
[2018-08-18] MEDS: diphenhydrAMINE 25 MG TABLET PO (09:25)
[2018-08-18] MEDS: ONDANSETRON 16 MG in SODIUM CHLORIDE 0.9% 50 ML 232 ML IV (09:32)
[2018-08-18] MEDS: FAMOTIDINE 20 MG/50 ML PIGGYBACK 200 MG IV (09:44)
[2018-08-18 09:45] LABS: Appearance Urine UA CLEAR; Bilirubin Urine UA NEGATIVE (NEGATIVE); Color Urine UA YELLOW; Glucose Urine UA NEGATIVE (Negative); Ketones Urine UA NEGATIVE (NEGATIVE); Leukocyte Esterase Urine UA NEGATIVE (NEGATIVE); Nitrite Urine UA NEGATIVE (Negative); Occult Blood Urine UA NEGATIVE (Negative); Protein Urine UA NEGATIVE (Negative); Urobilinogen Urine UA 0.2 E.U./dL (0.2)
[2018-08-18 09:57] LABS: Bacteria Urine Occasional (0-1); Culture Indicated Urine Cult Not Indicated; RBC Urine None Seen (0-5/HPF); WBC Urine 0-1/HPF (0-5/HPF)
[2018-08-18] MEDS: DEXTROSE 5% IV (10:20)
[2018-08-18] MEDS: PACLITAXEL IV (10:20)
[2018-08-18] MEDS: SODIUM CHLORIDE 0.9% IV (11:51)
[2018-08-18] MEDS: CARBOPLATIN IV (11:51)
--- NOTE | 2018-08-25 08:42 | ONC.APRN.PN ---
PN -Subjective Interval history: DIAGNOSIS: Locally advanced triple negative breast cancer originally diagnosed October 09, 2015. The patient presents for Carboplatin/Paclitaxel cycle 12 of 12 planned. Overall feeling pretty good. No fever or chills, no cough. Admits to mild nausea for 2 days after treatment. No abdominal pain. No back pain. No blood noted in urine. Appetite is stable, weight is stable as well. No skin changes. No pain numbness or tingling in her hands or feet. Activity tolerance remains stable. No new pain, no new lumps or bumps. She is still working full-time at [employer]. Patient did meet with surgeon Dr Berman at [facility] also has an appointment September 08 to meet with the thoracic surgeon at [facility] as well. She is hoping for surgery the last week in August, the thoracic surgeon and Dr. Berman will be coordinating this schedule. CT scan dated July 05, 2018 demonstrated appropriate response to treatment with diminishing size of left breast lesion, no evidence of metastatic disease. This was a reflection of Oncology History: Lisa Llamas is a 52-year-old female. She was diagnosed with left breast localized advanced triple negative breast cancer (TNBC) on 10/09/2015. The primary tumor measured 6 x 6 cm at 10:00. She underwent neoadjuvant dose dense AC x 4 cycles followed by weekly Paclitaxel/Carboplatin completed 05/01/2017. Patient's left breast mass shrunk to the size of pea. However patient herself chose not to proceed with scheduled surgery, and did not came back for follow-up. In 01/2018, due to re-growth of her left breast tumor with skin ulceration and smells as well as left shoulder pain, she showed up for reevaluation. CT CAP showed no evidence of metastasis in the bone or other locations. She underwent re-biopsy of the left breast cancer on 02/07/2018 and it was confirmed to be TNBC. Preoperative chemotherapy was recommended in anticipation of difficulty closing the big defect if surgery resection upfront. She was started on weekly Carboplatin (AUC 2) and Paclitaxel (80 mg/m2) on 02/22/[address] [facility]. After 5 weekly treatments (02/22/2018, 03/01/2018, 03/08/2018, 03/15/2018 and 03/22/2018 respectively, her left shoulder pain and range of movement improved. 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 On 07/01/2018, because the left breast lump began to grow again with recurrent left shoulder stiffness and left shoulder pain, she presented at [facility] and request to resume chemotherapy. During her visit on 07/01/2018, out of concern for possible left supraclavicular palpable lymph node, repeat CT scan of the chest abdomen pelvis together with CT scan of the neck were obtained to evaluate for possible disease progression or metastasis. Fortunately the CT scan showed no evidence of disease metastasis in the neck or other parts of the body. It also showed that the left breast lump actually is decreasing in size. - Patient Self-Reported Symptoms SR respiratory issues: Cough, Mucous SR Skin issues: Skin rash or itching SR Musculoskeletal issues: Difficulty walking Home Medications and Allergies Home Medications Medication Instructions Recorded Confirmed Type OMEGA-3 FATTY ACIDS (FISH OIL) 500 mg PO Q DAY #0 04/24/16 07/29/18 History Lacto.acidophilus-Bif.animalis 1 cap PO DAILY 12/15/17 07/29/18 History [Probiotic] loratadine [Claritin] 10 mg PO DAILY PRN 12/15/17 07/29/18 History multivitamin 1 tab PO DAILY 12/15/17 07/29/18 History vitamin B complex 1 tab PO DAILY 12/15/17 07/29/18 History mupirocin 2 % topical ointment 1 applic TOP BID #30 gram 06/14/18 07/29/18 Rx acetaminophen [Tylenol] 325 mg PO DAILY 07/29/18 07/29/18 History nitrofurantoin monohyd/m-cryst 100 mg PO Q12H #10 cap 08/18/18 Rx [Macrobid] Allergies Allergy/AdvReac Type Severity Reaction Status Date / Time Sulfa (Sulfonamide Allergy Unknown Verified 06/14/18 09:20 Antibiotics) [SULFA (SULFONAMIDE ANTIBIOTICS)] Exam - Constitutional positive no acute distress, positive thin - Routine HEENT Exam Eye: Present: conjunctivae pink. Absent: conjunctival icterus, scleral injection ENT: Present: mucous membranes moist, oropharynx clear - Routine Neck Exam Present: supple. Absent: lymphadenopathy - Routine Respiratory Exam Present: Clear to auscultation bilaterally. Absent: rales, rhonchi, wheezes - Routine Cardiovascular Exam Present: RRR, S1, S2. Absent: murmur, gallop, rubs, JVD - Routine Abdominal Exam Present: soft, normoactive bowel sounds. Absent: tenderness, distended, organomegaly - Routine Extremities Exam Absent: edema, calf tenderness - Routine Neurological Exam Present: alert, oriented X3 - Routine Psychiatric Exam Present: normal affect Results - Labs Laboratory Last Values WBC 3.6 X10^3/uL (4.5-11.0) L 08/18/18 08:15 RBC 3.32 X10^6/uL (4.0-5.2) L 08/18/18 08:15 Hgb 10.7 g/dL (12.0-16.0) L 08/18/18 08:15 Hct 31.6 % (36-46) L 08/18/18 08:15 MCV 95.1 fL (80-100) 08/18/18 08:15 MCH 32.3 PG (26-34) 08/18/18 08:15 MCHC 34.0 % (30-36) 08/18/18 08:15 RDW 15.8 % (11.6-14.8) H 08/18/18 08:15 Plt Count 353 X10^3/uL (150-400) 08/18/18 08:15 Neut % (Auto) 58.2 % (50-75) 08/18/18 08:15 Lymph % (Auto) 29.3 % (25-40) 08/18/18 08:15 [place] % (Auto) 8.2 % (3-14) 08/18/18 08:15 Eos % (Auto) 2.9 % (2-4) 08/18/18 08:15 Baso % (Auto) 1.4 % (0-2) 08/18/18 08:15 Neut # (Auto) 2100 /uL (5598-9951) 08/18/18 08:15 Lymph # (Auto) 1000 /uL (3993-4303) L 08/18/18 08:15 [place] # (Auto) 300 /uL (0-900) 08/18/18 08:15 Eos # (Auto) 100 /uL (0-450) 08/18/18 08:15 Baso # (Auto) 100 /uL (0-100) 08/18/18 08:15 Sodium 134 mmol/L (137-145) L 08/18/18 08:15 Potassium 3.9 mmol/L (3.4-5.1) 08/18/18 08:15 Chloride 98 mmol/L (98-107) 08/18/18 08:15 Carbon Dioxide 27 mmol/L (22-32) 08/18/18 08:15 BUN 3 mg/dL (7-17) L 08/18/18 08:15 Creatinine 0.50 mg/dL (0.52-1.04) L 08/18/18 08:15 Estimated GFR > 60.0 mL/min (>60) 08/18/18 08:15 BUN/Creatinine Ratio 6.0 (6-22) 08/18/18 08:15 Glucose 84 mg/dL (70-100) 08/18/18 08:15 Calcium 8.7 mg/dL (8.4-10.2) 08/18/18 08:15 Total Bilirubin 0.2 mg/dL (0.2-1.3) 08/18/18 08:15 AST 48 IU/L (14-36) H 08/18/18 08:15 ALT 50 IU/L (9-52) 08/18/18 08:15 Alkaline Phosphatase 68 U/L (38-126) 08/18/18 08:15 Total Protein 6.8 g/dL (6.3-8.2) 08/18/18 08:15 Albumin 3.9 g/dL (3.5-5.0) 08/18/18 08:15 Globulin 2.9 g/dL (1.7-4.1) 08/18/18 08:15 Albumin/Globulin Ratio 1.3 (1.0-2.8) 08/18/18 08:15 Carcinoembryonic Ag 3.4 ng/mL (0.1-3.0) H 07/01/18 09:11 CA 27-29 19 U/mL (< 38) 07/01/18 09:11 Urine Color Yellow 08/18/18 08:55 Urine Appearance Clear 08/18/18 08:55 Urine pH 7.0 (4.5-8.0) 08/18/18 08:55 Ur Specific [place] 1.010 (1.000-1.035) 08/18/18 08:55 Urine Protein Negative (Negative) 08/18/18 08:55 Urine Glucose (UA) Negative g/dL (Negative) 08/18/18 08:55 Urine Ketones Negative (NEGATIVE) 08/18/18 08:55 Urine Occult Blood Negative (Negative) 08/18/18 08:55 Urine Nitrate Negative (Negative) 08/18/18 08:55 Urine Bilirubin Negative (NEGATIVE) 08/18/18 08:55 Urine Urobilinogen 0.2 E.U./dL (0.2) 08/18/18 08:55 Ur Leukocyte Esterase Negative (NEGATIVE) 08/18/18 08:55 Urine RBC None seen (0-5/HPF) 08/18/18 08:55 Urine WBC 0-1/hpf (0-5/HPF) 08/18/18 08:55 Urine Bacteria Occasional (0-1) (None) 08/18/18 08:55 Ur Culture Indicated? Cult not indicated 08/18/18 08:55 Assessment and Plan (1) Triple negative malignant neoplasm of breast Problem details: 1. Localized advanced left triple negative breast cancer diagnosed on 10/09/2015. She underwent neoadjuvant chemotherapy with dose dense AC for 4 cycles followed by weekly paclitaxel/carboplatin completed 05/01/2017. Patient's left breast mass has decreased significantly to the size of a pea, but she chose not to proceed with scheduled surgery, and lost to follow-up. 2. Recurrent locally with skin ulceration and smells at the left breat in 01/2018, confirmed by re-biopy to be TNBC. Restaging CAP showed no distant metastasis. Preoperative chemotherapy was recommended due to concern to close the defect because of the size of the tumor. 3. Weekly carboplatin and paclitaxel 02/22/[address] [facility] initiated 02/22/2018 Assessment: Today is cycle 12 of 12 planned treatments. Patient continues to tolerate the chemotherapy very well. CBC and CMP remain stable. Hemoglobin is down a bit at 9.9 hematocrit 28.3. White count 3.4 ANC 1900. Platelets [id number]. Renal function remains within normal limits. Patient continues with very mild transaminitis with an AST of 42 ALT is within normal limits at 44. Bilirubin also within normal limits. Patient has met with surgeon Dr. Berman has upcoming appointment September 08 with thoracic surgeon patient is hoping for her surgery the end of August. After the surgery, Dr Andujar discussed plan to give her more adjuvant chemotherapy. Then, she will need radiation therapy. Patient voiced understanding. Plan 1. Ok to proceed to Carbo (AUC2)/Paclitaxol (80 mg/m2), now cycle 12, her final cycle. 2. Pt has upcoming appointments with breast surgeon and thoracic surgeon, I have asked her to return WednesdaySeptember 12 for a visit with oncologist Dr Andujar prior to surgery to review plan after she has healed from surgery. 3. Follow-up with surgeon as planned.
[2018-08-25 08:50] VITALS: BP 106/72; PULSE 82; RESP 18; TEMP 36.6; O2SAT 100
[2018-08-25 09:20] LABS: Add Manual Diff / Slide Review NO; Basophils Absolute Auto 100 /uL (0-100); Basophils Percent Auto 2.7 % (0-2); Eosinophils Absolute Auto 100 /uL (0-450); Eosinophils Percent Auto 3.3 % (2-4); Hematocrit 28.3 % (36-46); Hemoglobin 9.9 g/dL (12.0-16.0); Lymphocytes Absolute Auto 1100 /uL (1100-4500); Lymphocytes Percent Auto 31.6 % (25-40); Mean Corpuscular HGB Conc 34.9 % (30-36); Mean Corpuscular Hemoglobin 32.8 PG (26-34); Monocytes Absolute Auto 200 /uL (0-900); Monocytes Percent Auto 5.8 % (3-14); Neutrophils Absolute Auto 1900 /uL (1500-7000); Neutrophils Percent Auto 56.6 % (50-75); Platelet Count 346 X10^3/uL (150-400); Red Blood Cell Count 3.01 X10^6/uL (4.0-5.2); Red Cell Distribution Width 15.7 % (11.6-14.8); White Blood Cell Count 3.4 X10^3/uL (4.5-11.0)
[2018-08-25 09:31] LABS: Alanine Aminotransferase 44 IU/L (9-52); Albumin 3.9 g/dL (3.5-5.0); Albumin Globulin Ratio 1.4 (1.0-2.8); Alkaline Phosphatase 62 U/L (38-126); Aspartate Aminotransferase 42 IU/L (14-36); Bilirubin Total 0.2 mg/dL (0.2-1.3); Blood Urea Nitrogen 4 mg/dL (7-17); Calcium 8.7 mg/dL (8.4-10.2); Carbon Dioxide 27 mmol/L (22-32); Chloride 98 mmol/L (98-107); Estimated Glomerular Filt Rate > 60.0 mL/min (>60); Globulin 2.7 g/dL (1.7-4.1); Glucose 87 mg/dL (70-100); HEMOLYSIS < 15 (0-50); Potassium 3.9 mmol/L (3.4-5.1); Sodium 133 mmol/L (137-145); Total Protein 6.6 g/dL (6.3-8.2)
[2018-08-25] MEDS: ACETAMINOPHEN 325 MG TABLET 650 MG PO (09:40)
[2018-08-25] MEDS: DEXAMETHASONE 10 MG/ML VIAL IV (09:40)
[2018-08-25] MEDS: diphenhydrAMINE 25 MG TABLET PO (09:40)
[2018-08-25] MEDS: ONDANSETRON 16 MG in SODIUM CHLORIDE 0.9% 50 ML 232 ML IV (09:45)
[2018-08-25] MEDS: FAMOTIDINE 20 MG/50 ML PIGGYBACK 200 MG IV (10:09)
[2018-08-25] MEDS: PACLITAXEL IV (10:56)
[2018-08-25] MEDS: DEXTROSE 5% IV (10:56)
[2018-08-25] MEDS: SODIUM CHLORIDE 0.9% 100 ML 21 ML IV (10:59)
[2018-08-25] MEDS: CARBOPLATIN IV (12:18)
[2018-08-25] MEDS: SODIUM CHLORIDE 0.9% IV (12:18)
--- NOTE | 2018-09-07 11:36 | ONC.NAV ---
Description: T/C-Insurance Clarification for Healthcare Management Activity: Called pt and left her a message that she needs to call Healthcare Management and update them that her [employer] termed on 04/27/18, and that they are denying our claims due to having the wrong insurance information. I provided her the phone number to call, and asked her to please call me to confirm that she has done this.
--- NOTE | 2018-09-12 13:48 | ONC.SCHED ---
CT does not require prior auth per Dana Crocker @ [facility].
[2018-09-12 15:36] VITALS: BP 113/74; PULSE 67; RESP 18; TEMP 36.5; O2SAT 100
[2018-09-12 15:43] LABS: Add Manual Diff / Slide Review NO; Basophils Absolute Auto 100 /uL (0-100); Basophils Percent Auto 2.5 % (0-2); Eosinophils Absolute Auto 100 /uL (0-450); Eosinophils Percent Auto 2.8 % (2-4); Hematocrit 31.9 % (36-46); Hemoglobin 10.8 g/dL (12.0-16.0); Lymphocytes Absolute Auto 1500 /uL (1100-4500); Lymphocytes Percent Auto 36.2 % (25-40); Mean Corpuscular Hemoglobin 32.7 PG (26-34); Mean Corpuscular Volume 96.2 fL (80-100); Monocytes Absolute Auto 300 /uL (0-900); Monocytes Percent Auto 7.7 % (3-14); Neutrophils Absolute Auto 2100 /uL (1500-7000); Neutrophils Percent Auto 50.8 % (50-75); Platelet Count 314 X10^3/uL (150-400); Red Blood Cell Count 3.31 X10^6/uL (4.0-5.2); Red Cell Distribution Width 17.3 % (11.6-14.8); White Blood Cell Count 4.2 X10^3/uL (4.5-11.0)
[2018-09-12 15:54] LABS: Alanine Aminotransferase 50 IU/L (9-52); Albumin 4.3 g/dL (3.5-5.0); Albumin Globulin Ratio 1.4 (1.0-2.8); Alkaline Phosphatase 74 U/L (38-126); Aspartate Aminotransferase 49 IU/L (14-36); Bilirubin Total 0.1 mg/dL (0.2-1.3); Blood Urea Nitrogen 3 mg/dL (7-17); Calcium 8.8 mg/dL (8.4-10.2); Carbon Dioxide 26 mmol/L (22-32); Chloride 96 mmol/L (98-107); Estimated Glomerular Filt Rate > 60.0 mL/min (>60); Globulin 3.1 g/dL (1.7-4.1); Glucose 74 mg/dL (70-100); HEMOLYSIS < 15 (0-50); Potassium 3.7 mmol/L (3.4-5.1); Sodium 132 mmol/L (137-145); Total Protein 7.4 g/dL (6.3-8.2)
--- NOTE | 2018-09-12 16:03 | ONC.PN ---
PN -Subjective Interval history: DIAGNOSIS: Locally advanced triple negative breast cancer originally diagnosed October 09, 2015. Patient recently was evaluated at [facility] by Dr. Bria silvestre on and Dr. Bria Wiseman, Dr. Enoch Villasenor and Dr. Milton Liriano. Patient is deemed to be a candidate for surgical resection which has already been scheduled for the coming Wednesday. Most likely patient will need resection of the chest wall to include multiple ribs and or portion of the sternum. Patient voiced understanding. Per Dr. Fraser request, I have already ordered CT scan of the chest abdomen pelvis to be performed tomorrow. Otherwise clinically patient has been doing well and denies any new signs or symptoms. Patient said that the left breast is little bit more tender than before but has not noticed any skin breakdown or growth of the left breast mass yet. Patient's right sided PICC line wrapping has fallen off with exposure of the PICC line insertion site and some swelling. At the clinic we decided to remove the PICC line with cultures of the PICC line tip. Clinically patient does not have any fever or chills. Not septic. Oncology History: Lisa Llamas is a 52-year-old female. She was diagnosed with left breast localized advanced triple negative breast cancer (TNBC) on 10/09/2015. The primary tumor measured 6 x 6 cm at 10:00. She underwent neoadjuvant dose dense AC x 4 cycles followed by weekly Paclitaxel/Carboplatin completed 05/01/2017. Patient's left breast mass shrunk to the size of pea. However patient herself chose not to proceed with scheduled surgery, and did not came back for follow-up. In 01/2018, due to re-growth of her left breast tumor with skin ulceration and smells as well as left shoulder pain, she showed up for reevaluation. CT CAP showed no evidence of metastasis in the bone or other locations. She underwent re-biopsy of the left breast cancer on 02/07/2018 and it was confirmed to be TNBC. Preoperative chemotherapy was recommended in anticipation of difficulty closing the big defect if surgery resection upfront. She was started on weekly Carboplatin (AUC 2) and Paclitaxel (80 mg/m2) on 02/22/[address] [facility]. After 5 weekly treatments (02/22/2018, 03/01/2018, 03/08/2018, 03/15/2018 and 03/22/2018 respectively, her left shoulder pain and range of movement improved. 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 On 07/01/2018, because the left breast lump began to grow again with recurrent left shoulder stiffness and left shoulder pain, she presented at [facility] and request to resume chemotherapy. During her visit on 07/01/2018, out of concern for possible left supraclavicular palpable lymph node, repeat CT scan of the chest abdomen pelvis together with CT scan of the neck were obtained to evaluate for possible disease progression or metastasis. Fortunately the CT scan showed no evidence of disease metastasis in the neck or other parts of the body. It also showed that the left breast lump actually is decreasing in size. Subsequently will resumed the weekly carboplatin/paclitaxel. Patient completed a total of 12 cycles of carbo and paclitaxel on 08/25/2018. - Patient Self-Reported Symptoms SR respiratory issues: Cough, Mucous SR Skin issues: Skin rash or itching SR Musculoskeletal issues: Difficulty walking Home Medications and Allergies Home Medications Medication Instructions Recorded Confirmed Type OMEGA-3 FATTY ACIDS (FISH OIL) 500 mg PO Q DAY #0 04/24/16 09/12/18 History Lacto.acidophilus-Bif.animalis 1 cap PO DAILY 12/15/17 09/12/18 History [Probiotic] loratadine [Claritin] 10 mg PO DAILY PRN 12/15/17 09/12/18 History multivitamin 1 tab PO DAILY 12/15/17 09/12/18 History vitamin B complex 1 tab PO DAILY 12/15/17 09/12/18 History mupirocin 2 % topical ointment 1 applic TOP BID #30 gram 06/14/18 09/12/18 Rx acetaminophen [Tylenol] 325 mg PO DAILY 07/29/18 09/12/18 History nitrofurantoin monohyd/m-cryst 100 mg PO Q12H #10 cap 08/18/18 09/12/18 Rx [Macrobid] Allergies Allergy/AdvReac Type Severity Reaction Status Date / Time Sulfa (Sulfonamide Allergy Unknown Verified 06/14/18 09:20 Antibiotics) [SULFA (SULFONAMIDE ANTIBIOTICS)] Exam Vital signs: Vital Signs Temp Pulse Resp BP Pulse Ox 09/12/18 15:36 97.7 F 67 18 113/74 100 Intake and Output 09/12/18 09/12/18 09/12/18 07:59 15:59 23:59 Other: Weight 45.4 kg Patient Weight 09/12/18 23:59 Weight 45.4 kg Narrative: Constitutional: WDWN, NAD, thin, pleasant and cooperative, came in by herself. HEENT: NCAT, EOMI, PERRLA, anicteric sclera. Neck: Supple, No palpable thyromegaly and no palpable lymph nodes. Respiratory: Clear to auscultation, and no wheezes. Cardiovascular: RRR, S1 and S2 normal, no m/g/r. Abdomen: Soft, nontender, non-distended, no palpable organomegaly. Lower extremities: No pitting edema of lower extremities. Lymphatic: one 1 cm lymph node in the right axilla. Neurological: AOx3, CN II-XII grossly intact. No focal motor or sensory deficit. Psychiatric: Good judgment, good insight, normal affect, normal thought process, cooperative, no depression, no anxiety. Breast exam: only examined the left: An irregularly shaped semi fixed lobulated mass at the left upper inner quadrant with scab formation and skin discoloration. No open wounds. No secretions. Mild skin erythema around noted. No changes compared to last week. All physical examinations were chaperoned. Results - Labs Laboratory Last Values WBC 4.2 X10^3/uL (4.5-11.0) L 09/12/18 15:26 RBC 3.31 X10^6/uL (4.0-5.2) L 09/12/18 15:26 Hgb 10.8 g/dL (12.0-16.0) L 09/12/18 15:26 Hct 31.9 % (36-46) L 09/12/18 15:26 MCV 96.2 fL (80-100) 09/12/18 15:26 MCH 32.7 PG (26-34) 09/12/18 15:26 MCHC 34.0 % (30-36) 09/12/18 15:26 RDW 17.3 % (11.6-14.8) H 09/12/18 15:26 Plt Count 314 X10^3/uL (150-400) 09/12/18 15:26 Neut % (Auto) 50.8 % (50-75) 09/12/18 15:26 Lymph % (Auto) 36.2 % (25-40) 09/12/18 15:26 [place] % (Auto) 7.7 % (3-14) 09/12/18 15:26 Eos % (Auto) 2.8 % (2-4) 09/12/18 15:26 Baso % (Auto) 2.5 % (0-2) H 09/12/18 15:26 Neut # (Auto) 2100 /uL ([id number]) 09/12/18 15:26 Lymph # (Auto) 1500 /uL ([id number]) 09/12/18 15:26 [place] # (Auto) 300 /uL (0-900) 09/12/18 15:26 Eos # (Auto) 100 /uL (0-450) 09/12/18 15:26 Baso # (Auto) 100 /uL (0-100) 09/12/18 15:26 Sodium 132 mmol/L (137-145) L 09/12/18 15:26 Potassium 3.7 mmol/L (3.4-5.1) 09/12/18 15:26 Chloride 96 mmol/L (98-107) L 09/12/18 15:26 Carbon Dioxide 26 mmol/L (22-32) 09/12/18 15:26 BUN 3 mg/dL (7-17) L 09/12/18 15:26 Creatinine 0.50 mg/dL (0.52-1.04) L 09/12/18 15:26 Estimated GFR > 60.0 mL/min (>60) 09/12/18 15:26 BUN/Creatinine Ratio 6.0 (6-22) 09/12/18 15:26 Glucose 74 mg/dL (70-100) 09/12/18 15:26 Calcium 8.8 mg/dL (8.4-10.2) 09/12/18 15:26 Total Bilirubin 0.1 mg/dL (0.2-1.3) L 09/12/18 15:26 AST 49 IU/L (14-36) H 09/12/18 15:26 ALT 50 IU/L (9-52) 09/12/18 15:26 Alkaline Phosphatase 74 U/L (38-126) 09/12/18 15:26 Total Protein 7.4 g/dL (6.3-8.2) 09/12/18 15:26 Albumin 4.3 g/dL (3.5-5.0) 09/12/18 15:26 Globulin 3.1 g/dL (1.7-4.1) 09/12/18 15:26 Albumin/Globulin Ratio 1.4 (1.0-2.8) 09/12/18 15:26 Carcinoembryonic Ag 4.0 ng/mL (0.1-3.0) H 09/12/18 15:26 CA 27-29 19 U/mL (< 38) 07/01/18 09:11 Urine Color Yellow 08/18/18 08:55 Urine Appearance Clear 08/18/18 08:55 Urine pH 7.0 (4.5-8.0) 08/18/18 08:55 Ur Specific [place] 1.010 (1.000-1.035) 08/18/18 08:55 Urine Protein Negative (Negative) 08/18/18 08:55 Urine Glucose (UA) Negative g/dL (Negative) 08/18/18 08:55 Urine Ketones Negative (NEGATIVE) 08/18/18 08:55 Urine Occult Blood Negative (Negative) 08/18/18 08:55 Urine Nitrate Negative (Negative) 08/18/18 08:55 Urine Bilirubin Negative (NEGATIVE) 08/18/18 08:55 Urine Urobilinogen 0.2 E.U./dL (0.2) 08/18/18 08:55 Ur Leukocyte Esterase Negative (NEGATIVE) 08/18/18 08:55 Urine RBC None seen (0-5/HPF) 08/18/18 08:55 Urine WBC 0-1/hpf (0-5/HPF) 08/18/18 08:55 Urine Bacteria Occasional (0-1) (None) 08/18/18 08:55 Ur Culture Indicated? Cult not indicated 08/18/18 08:55 Assessment and Plan (1) Triple negative malignant neoplasm of breast Problem details: 1. Localized advanced left triple negative breast cancer diagnosed on 10/09/2015. She underwent neoadjuvant chemotherapy with dose dense AC for 4 cycles followed by weekly paclitaxel/carboplatin completed 05/01/2017. Patient's left breast mass has decreased significantly to the size of a pea, but she chose not to proceed with scheduled surgery, and lost to follow-up. 2. Recurrent locally with skin ulceration and smells at the left breat in 01/2018, confirmed by re-biopy to be TNBC. Restaging CAP showed no distant metastasis. Preoperative chemotherapy was recommended due to concern to close the defect because of the size of the tumor. 3. Weekly carboplatin and paclitaxel 02/22/[address] [facility] initiated 02/22/2018, completed total of 12 cycles on 08/25/2018. Assessment: Today, first of all, l talked with the patient that the PICC line seems to be dislocated with some swelling at the insertion site. I would recommend that we remove the the line. Next I talked with the patient that the overall strategy is to have the surgery done as scheduled. Since she did not have a complete response, she will need for post-operative chemotherapy. Patient voiced understanding. Plan 1. CT CAP w/contrast tomorrow 2. Follow up with Pinky Cottrell on Wed 3. PICC line removal 4. RTC in 4 weeks, CBC, CMP
--- NOTE | 2018-09-27 12:52 | ONC.SCHED ---
[employer]ANCE CALLED ASKING IF PATIENT WAS CONTINUING CARE FOR CHEMO AND I TOLD HER SHE HAS A PROVIDER VISIT ON 10/10/18. WE WON'T KNOW UNTIL THAT VISIT. WE WILL NEED TO GET A NEW AUTH IF SHE IS CONTINUING HER TREATMENT. THEY WILL NEED CHART NOTES FOR THE AUTH.
[2018-10-10 16:01] LABS: Add Manual Diff / Slide Review NO; Basophils Absolute Auto 100 /uL (0-100); Basophils Percent Auto 1.1 % (0-2); Eosinophils Absolute Auto 400 /uL (0-450); Eosinophils Percent Auto 5.8 % (2-4); Hematocrit 27.5 % (36-46); Hemoglobin 9.6 g/dL (12.0-16.0); Lymphocytes Absolute Auto 1500 /uL (1100-4500); Lymphocytes Percent Auto 24.5 % (25-40); Mean Corpuscular HGB Conc 34.8 % (30-36); Mean Corpuscular Hemoglobin 33.5 PG (26-34); Mean Corpuscular Volume 96.2 fL (80-100); Monocytes Absolute Auto 400 /uL (0-900); Monocytes Percent Auto 6.7 % (3-14); Neutrophils Absolute Auto 3800 /uL (1500-7000); Neutrophils Percent Auto 61.9 % (50-75); Platelet Count 473 X10^3/uL (150-400); Red Blood Cell Count 2.86 X10^6/uL (4.0-5.2); Red Cell Distribution Width 15.9 % (11.6-14.8); White Blood Cell Count 6.1 X10^3/uL (4.5-11.0)
[2018-10-10 16:11] LABS: Alanine Aminotransferase 57 IU/L (9-52); Albumin 3.9 g/dL (3.5-5.0); Albumin Globulin Ratio 1.3 (1.0-2.8); Alkaline Phosphatase 70 U/L (38-126); Aspartate Aminotransferase 59 IU/L (14-36); Blood Urea Nitrogen 6 mg/dL (7-17); Calcium 8.6 mg/dL (8.4-10.2); Carbon Dioxide 27 mmol/L (22-32); Chloride 94 mmol/L (98-107); Estimated Glomerular Filt Rate > 60.0 mL/min (>60); Glucose 75 mg/dL (70-100); HEMOLYSIS < 15 (0-50); Sodium 129 mmol/L (137-145); Total Protein 6.9 g/dL (6.3-8.2)
[2018-10-10 16:12] LABS: Bilirubin Total < 0.1 mg/dL (0.2-1.3)
[2018-10-10 16:31] VITALS: BP 116/76; PULSE 81; RESP 16; TEMP 36.6; O2SAT 100
--- NOTE | 2018-10-10 17:30 | P.PNONC_ITS ---
PN -Subjective Interval history: DIAGNOSIS: Locally advanced triple negative breast cancer originally diagnosed October 09, 2015. On 09/16/2018, patient underwent left simple total mastectomy and left axillary sentinel lymph node biopsy. The surgical pathology showed invasive ductal carcinoma, high grade, measuring 4.3 x 3.3 x 1.5 cm, without DCIS. Skeletal muscle was involved no lymphovascular invasion no skin or nipple involvement. All margins negative. [place] lymph node was 0/1. Stage: ypT2 ypN0(sn). She is now currently being followed by Pinky Cottrell for wound healing. He denies any fever or chills. Patient reports that she is feeling great. No nausea no vomiting. No shortness of breath no chest pain. No abdominal pain. No diarrhea and no constipation. Oncology History: Lisa Llamas is a 52-year-old female. She was diagnosed with left breast localized advanced triple negative breast cancer (TNBC) on 10/09/2015. The primary tumor measured 6 x 6 cm at 10:00. She underwent neoadjuvant dose dense AC x 4 cycles followed by weekly Paclitaxel/Carboplatin completed 05/01/2017. Patient's left breast mass shrunk to the size of pea. However patient herself chose not to proceed with scheduled surgery, and did not came back for follow- up. In 01/2018, due to re-growth of her left breast tumor with skin ulceration and smells as well as left shoulder pain, she showed up for reevaluation. CT CAP showed no evidence of metastasis in the bone or other locations. She underwent re-biopsy of the left breast cancer on 02/07/2018 and it was confirmed to be TNBC. Preoperative chemotherapy was recommended in anticipation of difficulty closing the big defect if surgery resection upfront. She was started on weekly Carboplatin (AUC 2) and Paclitaxel (80 mg/m2) on 02/22/2018 at [facility]. After 5 weekly treatments (02/22/2018, 03/01/2018, 03/08/2018, 03/15/2018 and 03/22/2018 respectively, her left shoulder pain and range of movement improved. 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 On 07/01/2018, because the left breast lump began to grow again with recurrent left shoulder stiffness and left shoulder pain, she presented at [facility] and request to resume chemotherapy. During her visit on 07/01/2018, out of concern for possible left supraclavicular palpable lymph node, repeat CT scan of the chest abdomen pelvis together with CT scan of the neck were obtained to evaluate for possible disease progression or metastasis. Fortunately the CT scan showed no evidence of disease metastasis in the neck or other parts of the body. It also showed that the left breast lump actually is decreasing in size. Subsequently will resumed the weekly carboplatin/paclitaxel. Patient completed a total of 12 cycles of carbo and paclitaxel on 08/25/2018. - Patient Self-Reported Symptoms SR respiratory issues: Cough, Mucous SR Skin issues: Skin rash or itching SR Musculoskeletal issues: Difficulty walking - Additional ROS All systems PM: reviewed and no additional remarkable complaints except as stated Home Medications and Allergies Home Medications Medication Instructions Recorded Confirmed Type OMEGA-3 FATTY ACIDS (FISH OIL) 500 mg PO Q DAY #0 04/24/16 09/12/18 History Lacto.acidophilus-Bif.animalis 1 cap PO DAILY 12/15/17 09/12/18 History [Probiotic] loratadine [Claritin] 10 mg PO DAILY PRN 12/15/17 09/12/18 History multivitamin 1 tab PO DAILY 12/15/17 09/12/18 History vitamin B complex 1 tab PO DAILY 12/15/17 09/12/18 History mupirocin 2 % topical ointment 1 applic TOP BID #30 gram 06/14/18 09/12/18 Rx acetaminophen [Tylenol] 325 mg PO DAILY 07/29/18 09/12/18 History nitrofurantoin monohyd/m-cryst 100 mg PO Q12H #10 cap 08/18/18 09/12/18 Rx [Macrobid] amoxicillin-pot clavulanate 1 tab PO BID 10/10/18 10/10/18 History [Augmentin] Allergies Allergy/AdvReac Type Severity Reaction Status Date / Time Sulfa (Sulfonamide Allergy Unknown Verified 06/14/18 09:20 Antibiotics) [SULFA (SULFONAMIDE ANTIBIOTICS)] Exam Vital signs: Vital Signs Temp Pulse Resp BP Pulse Ox 10/10/18 16:31 97.8 F 81 16 116/76 100 Intake and Output 10/10/18 10/10/18 10/10/18 07:59 15:59 23:59 Other: Weight 46.9 kg Patient Weight 10/10/18 23:59 Weight 46.9 kg ECOG 1 Narrative: Constitutional: WDWN, NAD, thin, pleasant and cooperative, came in by herself. HEENT: NCAT, EOMI, PERRLA, anicteric sclera. Neck: Supple, No palpable thyromegaly and no palpable lymph nodes. Respiratory: Clear to auscultation, and no wheezes. Cardiovascular: RRR, S1 and S2 normal, no m/g/r. Abdomen: Soft, nontender, non-distended, no palpable organomegaly. Lower extremities: No pitting edema of lower extremities. Neurological: AOx3, CN II-XII grossly intact. No focal motor or sensory deficit. Psychiatric: Good judgment, good insight, normal affect, normal thought process, cooperative, no depression, no anxiety. Breast exam: only examined the left: absent s/p mastecotmy. gauze notede with dark secretion. All physical examinations were chaperoned. Results - Labs Laboratory Last Values WBC 6.1 X10^3/uL (4.5-11.0) 10/10/18 15:52 RBC 2.86 X10^6/uL (4.0-5.2) L 10/10/18 15:52 Hgb 9.6 g/dL (12.0-16.0) L 10/10/18 15:52 Hct 27.5 % (36-46) L 10/10/18 15:52 MCV 96.2 fL (80-100) 10/10/18 15:52 MCH 33.5 PG (26-34) 10/10/18 15:52 MCHC 34.8 % (30-36) 10/10/18 15:52 RDW 15.9 % (11.6-14.8) H 10/10/18 15:52 Plt Count 473 X10^3/uL (150-400) H 10/10/18 15:52 Neut % (Auto) 61.9 % (50-75) 10/10/18 15:52 Lymph % (Auto) 24.5 % (25-40) L 10/10/18 15:52 [place] % (Auto) 6.7 % (3-14) 10/10/18 15:52 Eos % (Auto) 5.8 % (2-4) H 10/10/18 15:52 Baso % (Auto) 1.1 % (0-2) 10/10/18 15:52 Neut # (Auto) 3800 /uL (6933-9718) 10/10/18 15:52 Lymph # (Auto) 1500 /uL ([id number]) 10/10/18 15:52 [place] # (Auto) 400 /uL (0-900) 10/10/18 15:52 Eos # (Auto) 400 /uL (0-450) 10/10/18 15:52 Baso # (Auto) 100 /uL (0-100) 10/10/18 15:52 Sodium 129 mmol/L (137-145) L 10/10/18 15:52 Potassium 4.0 mmol/L (3.4-5.1) 10/10/18 15:52 Chloride 94 mmol/L (98-107) L 10/10/18 15:52 Carbon Dioxide 27 mmol/L (22-32) 10/10/18 15:52 BUN 6 mg/dL (7-17) L 10/10/18 15:52 Creatinine 0.50 mg/dL (0.52-1.04) L 10/10/18 15:52 Estimated GFR > 60.0 mL/min (>60) 10/10/18 15:52 BUN/Creatinine Ratio 12.0 (6-22) 10/10/18 15:52 Glucose 75 mg/dL (70-100) 10/10/18 15:52 Calcium 8.6 mg/dL (8.4-10.2) 10/10/18 15:52 Total Bilirubin < 0.1 mg/dL (0.2-1.3) L 10/10/18 15:52 AST 59 IU/L (14-36) H 10/10/18 15:52 ALT 57 IU/L (9-52) H 10/10/18 15:52 Alkaline Phosphatase 70 U/L (38-126) 10/10/18 15:52 Total Protein 6.9 g/dL (6.3-8.2) 10/10/18 15:52 Albumin 3.9 g/dL (3.5-5.0) 10/10/18 15:52 Globulin 3.0 g/dL (1.7-4.1) 10/10/18 15:52 Albumin/Globulin Ratio 1.3 (1.0-2.8) 10/10/18 15:52 Carcinoembryonic Ag 4.0 ng/mL (0.1-3.0) H 09/12/18 15:26 CA 27-29 19 U/mL (< 38) 07/01/18 09:11 Urine Color Yellow 08/18/18 08:55 Urine Appearance Clear 08/18/18 08:55 Urine pH 7.0 (4.5-8.0) 08/18/18 08:55 Ur Specific [place] 1.010 (1.000-1.035) 08/18/18 08:55 Urine Protein Negative (Negative) 08/18/18 08:55 Urine Glucose (UA) Negative g/dL (Negative) 08/18/18 08:55 Urine Ketones Negative (NEGATIVE) 08/18/18 08:55 Urine Occult Blood Negative (Negative) 08/18/18 08:55 Urine Nitrate Negative (Negative) 08/18/18 08:55 Urine Bilirubin Negative (NEGATIVE) 08/18/18 08:55 Urine Urobilinogen 0.2 E.U./dL (0.2) 08/18/18 08:55 Ur Leukocyte Esterase Negative (NEGATIVE) 08/18/18 08:55 Urine RBC None seen (0-5/HPF) 08/18/18 08:55 Urine WBC 0-1/hpf (0-5/HPF) 08/18/18 08:55 Urine Bacteria Occasional (0-1) (None) 08/18/18 08:55 Ur Culture Indicated? Cult not indicated 08/18/18 08:55 Assessment and Plan (1) Triple negative malignant neoplasm of breast Assessment: 1. Localized advanced left triple negative breast cancer diagnosed on 10/09/2015. She underwent neoadjuvant chemotherapy with dose dense AC for 4 cycles followed by weekly paclitaxel/carboplatin completed 05/01/2017. Patient's left breast mass has decreased significantly to the size of a pea, but she chose not to proceed with scheduled surgery, and lost to follow-up. 2. Recurrent locally with skin ulceration and smells at the left breat in 01/2018, confirmed by re-biopy to be TNBC. Restaging CAP showed no distant metastasis. Preoperative chemotherapy was recommended due to concern to close the defect because of the size of the tumor. 3. Weekly carboplatin and paclitaxel 02/22/2018 at [facility] initiated 02/22/2018, completed total of 12 cycles on 08/25/2018. 4. Left simple total mastecotmy with left sentinel node biopsy on 09/16/2018. The surgical pathology showed invasive ductal carcinoma, high grade, measuring 4.3 x 3.3 x 1.5 cm, without DCIS. Skeletal muscle was involved, no lymphovascular invasion, no skin or nipple involvement. All margins negative. [place] lymph node was 0/1. Stage: ypT2 ypN0(sn). Patient currently clearly is being followed by Dr. Wiseman for the left breast surgical wound possible infection. Patient is currently on Augmentin. I talked with the patient that she will need possibly radiation therapy. She definitely will need postoperative chemotherapy. I will wait for another 2-3 weeks for more discussion when the wound heals. As for the type of chemotherapy, I talked with the patient we may be use or medication capecitabine based on [employer] trial results. Plan 1. Follow up with Pinky Cottrell as scheduled 2. RTC in 2-3 weeks, CBC, CMP
--- NOTE | 2018-10-11 11:51 | ONC.NAV ---
Description: Letter for Employer Activity: Pt called to request that a letter be written for her to provide to her employer re: that she has been in cancer treatment, which they are requiring since she had to cancel an educational opportunity that she had been signed up for. [employer] compiled the letter, Dr. Andujar signed it. 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
--- NOTE | 2018-11-07 15:55 | ONC.SCHED ---
per patient, she now has [employer] as of October 26, 2018/note to patient accounts to revise in insurance screen
[2018-12-01 16:08] VITALS: BP 129/73; PULSE 68; RESP 16; TEMP 36.7; O2SAT 98
--- NOTE | 2018-12-01 16:19 | ONC.PN ---
PN -Subjective Interval history: Lisa Llamas is a 52-year-old female. She was diagnosed with left breast localized advanced triple negative breast cancer (TNBC) on 10/09/2015. The primary tumor measured 6 x 6 cm at 10:00. She underwent neoadjuvant dose dense AC x 4 cycles followed by weekly Paclitaxel/Carboplatin completed 05/01/2017. Patient's left breast mass shrunk to the size of pea. However patient herself chose not to proceed with scheduled surgery, and did not came back for follow-up. In 01/2018, due to re-growth of her left breast tumor with skin ulceration and smells as well as left shoulder pain, she showed up for reevaluation. CT CAP showed no evidence of metastasis in the bone or other locations. She underwent re-biopsy of the left breast cancer on 02/07/2018 and it was confirmed to be TNBC. Preoperative chemotherapy was recommended in anticipation of difficulty closing the big defect if surgery resection upfront. She was started on weekly Carboplatin (AUC 2) and Paclitaxel (80 mg/m2) on 02/22/2018 at [facility]. After 5 weekly treatments (02/22/2018, 03/01/2018, 03/08/2018, 03/15/2018 and 03/22/2018 respectively, her left shoulder pain and range of movement improved. 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 On 07/01/2018, because the left breast lump began to grow again with recurrent left shoulder stiffness and left shoulder pain, she presented at [facility] and request to resume chemotherapy. During her visit on 07/01/2018, out of concern for possible left supraclavicular palpable lymph node, repeat CT scan of the chest abdomen pelvis together with CT scan of the neck were obtained to evaluate for possible disease progression or metastasis. Fortunately the CT scan showed no evidence of disease metastasis in the neck or other parts of the body. It also showed that the left breast lump actually is decreasing in size. Subsequently will resumed the weekly carboplatin/paclitaxel. Patient completed a total of 12 cycles of carbo and paclitaxel on 08/25/2018. On 09/16/2018, patient underwent left simple total mastectomy and left axillary sentinel lymph node biopsy. The surgical pathology showed invasive ductal carcinoma, high grade, measuring 4.3 x 3.3 x 1.5 cm, without DCIS. Skeletal muscle was involved no lymphovascular invasion no skin or nipple involvement. All margins negative. [place] lymph node was 0/1. Stage: ypT2 ypN0(sn). She is now currently being followed by Pinky Cottrell for wound healing. Interim Events: Patient's postsurgical cellulitis has completely resolved. Last seen by Dr. Liriano was on 11/04/2018. Patient presents here today for follow-up visit. She reports feeling excellent. No headache no double vision and no blurred vision. The surgical wound has completely healed. No pain. He denies any abdominal pain. She denies any new musculoskeletal pain. She has been fully active. She said now the school is almost over, she will be able to have more time to come to the clinic. - Patient Self-Reported Symptoms SR respiratory issues: Cough, Mucous SR Skin issues: Skin rash or itching SR Musculoskeletal issues: Difficulty walking - Additional ROS All systems PM: reviewed and no additional remarkable complaints except as stated Home Medications and Allergies Home Medications Medication Instructions Recorded Confirmed Type OMEGA-3 FATTY ACIDS (FISH OIL) 500 mg PO Q DAY #0 04/24/16 09/12/18 History Lacto.acidophilus-Bif.animalis 1 cap PO DAILY 12/15/17 09/12/18 History [Probiotic] loratadine [Claritin] 10 mg PO DAILY PRN 12/15/17 09/12/18 History multivitamin 1 tab PO DAILY 12/15/17 09/12/18 History vitamin B complex 1 tab PO DAILY 12/15/17 09/12/18 History mupirocin 2 % topical ointment 1 applic TOP BID #30 gram 06/14/18 09/12/18 Rx acetaminophen [Tylenol] 325 mg PO DAILY 07/29/18 09/12/18 History nitrofurantoin monohyd/m-cryst 100 mg PO Q12H #10 cap 08/18/18 09/12/18 Rx [Macrobid] Allergies Allergy/AdvReac Type Severity Reaction Status Date / Time Sulfa (Sulfonamide Allergy Unknown Verified 06/14/18 09:20 Antibiotics) [SULFA (SULFONAMIDE ANTIBIOTICS)] Exam Vital signs: Last Vital Signs Temp 98.0 F 12/01/18 16:08 Pulse 68 12/01/18 16:08 Resp 16 12/01/18 16:08 BP 129/73 12/01/18 16:08 Pulse Ox 98 12/01/18 16:08 ECOG 1 Narrative: Constitutional: WDWN, NAD, thin, pleasant and cooperative, came in by herself. HEENT: NCAT, EOMI, PERRLA, anicteric sclera. Neck: Supple, No palpable thyromegaly and no palpable lymph nodes. Respiratory: Clear to auscultation, and no wheezes. Cardiovascular: RRR, S1 and S2 normal, no m/g/r. Abdomen: Soft, nontender, non-distended, no palpable organomegaly. Lower extremities: No pitting edema of lower extremities. Neurological: AOx3, CN II-XII grossly intact. No focal motor or sensory deficit. Psychiatric: Good judgment, good insight, normal affect, normal thought process, cooperative, no depression, no anxiety. Breast exam: only examined the left: surgical wound completely healed. no secretions no erythema. All physical examinations were chaperoned. Results - Labs Laboratory Last Values WBC 6.1 X10^3/uL (4.5-11.0) 10/10/18 15:52 RBC 2.86 X10^6/uL (4.0-5.2) L 10/10/18 15:52 Hgb 9.6 g/dL (12.0-16.0) L 10/10/18 15:52 Hct 27.5 % (36-46) L 10/10/18 15:52 MCV 96.2 fL (80-100) 10/10/18 15:52 MCH 33.5 PG (26-34) 10/10/18 15:52 MCHC 34.8 % (30-36) 10/10/18 15:52 RDW 15.9 % (11.6-14.8) H 10/10/18 15:52 Plt Count 473 X10^3/uL (150-400) H 10/10/18 15:52 Neut % (Auto) 61.9 % (50-75) 10/10/18 15:52 Lymph % (Auto) 24.5 % (25-40) L 10/10/18 15:52 [place] % (Auto) 6.7 % (3-14) 10/10/18 15:52 Eos % (Auto) 5.8 % (2-4) H 10/10/18 15:52 Baso % (Auto) 1.1 % (0-2) 10/10/18 15:52 Neut # (Auto) 3800 /uL (3206-8794) 10/10/18 15:52 Lymph # (Auto) 1500 /uL (2384-7218) 10/10/18 15:52 [place] # (Auto) 400 /uL (0-900) 10/10/18 15:52 Eos # (Auto) 400 /uL (0-450) 10/10/18 15:52 Baso # (Auto) 100 /uL (0-100) 10/10/18 15:52 Sodium 129 mmol/L (137-145) L 10/10/18 15:52 Potassium 4.0 mmol/L (3.4-5.1) 10/10/18 15:52 Chloride 94 mmol/L (98-107) L 10/10/18 15:52 Carbon Dioxide 27 mmol/L (22-32) 10/10/18 15:52 BUN 6 mg/dL (7-17) L 10/10/18 15:52 Creatinine 0.50 mg/dL (0.52-1.04) L 10/10/18 15:52 Estimated GFR > 60.0 mL/min (>60) 10/10/18 15:52 BUN/Creatinine Ratio 12.0 (6-22) 10/10/18 15:52 Glucose 75 mg/dL (70-100) 10/10/18 15:52 Calcium 8.6 mg/dL (8.4-10.2) 10/10/18 15:52 Total Bilirubin < 0.1 mg/dL (0.2-1.3) L 10/10/18 15:52 AST 59 IU/L (14-36) H 10/10/18 15:52 ALT 57 IU/L (9-52) H 10/10/18 15:52 Alkaline Phosphatase 70 U/L (38-126) 10/10/18 15:52 Total Protein 6.9 g/dL (6.3-8.2) 10/10/18 15:52 Albumin 3.9 g/dL (3.5-5.0) 10/10/18 15:52 Globulin 3.0 g/dL (1.7-4.1) 10/10/18 15:52 Albumin/Globulin Ratio 1.3 (1.0-2.8) 10/10/18 15:52 Carcinoembryonic Ag 4.0 ng/mL (0.1-3.0) H 09/12/18 15:26 CA 27-29 19 U/mL (< 38) 07/01/18 09:11 Urine Color Yellow 08/18/18 08:55 Urine Appearance Clear 08/18/18 08:55 Urine pH 7.0 (4.5-8.0) 08/18/18 08:55 Ur Specific [place] 1.010 (1.000-1.035) 08/18/18 08:55 Urine Protein Negative (Negative) 08/18/18 08:55 Urine Glucose (UA) Negative g/dL (Negative) 08/18/18 08:55 Urine Ketones Negative (NEGATIVE) 08/18/18 08:55 Urine Occult Blood Negative (Negative) 08/18/18 08:55 Urine Nitrate Negative (Negative) 08/18/18 08:55 Urine Bilirubin Negative (NEGATIVE) 08/18/18 08:55 Urine Urobilinogen 0.2 E.U./dL (0.2) 08/18/18 08:55 Ur Leukocyte Esterase Negative (NEGATIVE) 08/18/18 08:55 Urine RBC None seen (0-5/HPF) 08/18/18 08:55 Urine WBC 0-1/hpf (0-5/HPF) 08/18/18 08:55 Urine Bacteria Occasional (0-1) (None) 08/18/18 08:55 Ur Culture Indicated? Cult not indicated 08/18/18 08:55 Assessment and Plan (1) Triple negative malignant neoplasm of breast Assessment: 1. Localized advanced left triple negative breast cancer diagnosed on 10/09/2015. She underwent neoadjuvant chemotherapy with dose dense AC for 4 cycles followed by weekly paclitaxel/carboplatin completed 05/01/2017. Patient's left breast mass has decreased significantly to the size of a pea, but she chose not to proceed with scheduled surgery, and lost to follow-up. 2. Recurrent locally with skin ulceration and smells at the left breat in 01/2018, confirmed by re-biopy to be TNBC. Restaging CAP showed no distant metastasis. Preoperative chemotherapy was recommended due to concern to close the defect because of the size of the tumor. 3. Weekly carboplatin and paclitaxel 02/22/2018 at [facility] initiated 02/22/2018, completed total of 12 cycles on 08/25/2018. 4. Left simple total mastecotmy with left sentinel node biopsy on 09/16/2018. The surgical pathology showed invasive ductal carcinoma, high grade, measuring 4.3 x 3.3 x 1.5 cm, without DCIS. Skeletal muscle was involved, no lymphovascular invasion, no skin or nipple involvement. All margins negative. [place] lymph node was 0/1. Stage: ypT2 ypN0(sn). I talked with the patient that the next step is adjuvant capecitabine per [employer] trial. In the trial, disease-free survival was longer in the capecitabine group than in the control group (74.1% vs. 67.6% at 5 years; HR 0.70; 95% confidence interval [CI], 0.53 to 0.92; P=0.01). Overall survival was longer in the capecitabine group than in the control group (89.2% vs. 83.6% alive at 5 years; HR 0.59; 95% CI, 0.39 to 0.90; P=0.01). Among patients with triple-negative disease, the rate of disease-free survival was 69.8% in the capecitabine group versus 56.1% in the control group (hazard ratio for recurrence, second cancer, or , 0.58; 95% CI, 0.39 to 0.87), and the overall survival rate was 78.8% versus 70.3% (hazard ratio for , 0.52; 95% CI, 0.30 to 0.90). The hand?foot syndrome, the most common adverse reaction to capecitabine, occurred in 73.4% of the patients in the capecitabine group. Patient will also probably need radiation therapy. I talked with the patient that I will try to present her case at our [facility] tumor Board for more discussion. Patient voiced understanding. Plan 1. Tumor Board at [facility] 2. RTC in 2-3 weeks, CBC, CMP
--- NOTE | 2018-12-20 12:52 | ONC.SCHED ---
Sent referral to [facility] per Dr. Andujar's order on 12/16/18 in order panel. Spoke with patient and let her know I'd sent the referral over. She wants to keep her apt. with Dr. Andujar here on 12/22/18 to discuss his thoughts after talking with the tumor board.
[2018-12-22 10:15] VITALS: BP 109/60; PULSE 90; RESP 18; TEMP 36.2; O2SAT 100
--- NOTE | 2018-12-22 10:27 | ONC.PN ---
PN -Subjective Interval history: Lisa Llamas is a 52-year-old female. She was diagnosed with left breast localized advanced triple negative breast cancer (TNBC) on 10/09/2015. The primary tumor measured 6 x 6 cm at 10:00. She underwent neoadjuvant dose dense AC x 4 cycles followed by weekly Paclitaxel/Carboplatin completed 05/01/2017. Patient's left breast mass shrunk to the size of pea. However patient herself chose not to proceed with scheduled surgery, and did not came back for follow-up. In 01/2018, due to re-growth of her left breast tumor with skin ulceration and smells as well as left shoulder pain, she showed up for reevaluation. CT CAP showed no evidence of metastasis in the bone or other locations. She underwent re-biopsy of the left breast cancer on 02/07/2018 and it was confirmed to be TNBC. Preoperative chemotherapy was recommended in anticipation of difficulty closing the big defect if surgery resection upfront. She was started on weekly Carboplatin (AUC 2) and Paclitaxel (80 mg/m2) on 02/22/2018 at [facility]. After 5 weekly treatments (02/22/2018, 03/01/2018, 03/08/2018, 03/15/2018 and 03/22/2018 respectively, her left shoulder pain and range of movement improved. 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 On 07/01/2018, because the left breast lump began to grow again with recurrent left shoulder stiffness and left shoulder pain, she presented at [facility] and request to resume chemotherapy. During her visit on 07/01/2018, out of concern for possible left supraclavicular palpable lymph node, repeat CT scan of the chest abdomen pelvis together with CT scan of the neck were obtained to evaluate for possible disease progression or metastasis. Fortunately the CT scan showed no evidence of disease metastasis in the neck or other parts of the body. It also showed that the left breast lump actually is decreasing in size. Subsequently will resumed the weekly carboplatin/paclitaxel. Patient completed a total of 12 cycles of carbo and paclitaxel on 08/25/2018. On 09/16/2018, patient underwent left simple total mastectomy and left axillary sentinel lymph node biopsy. The surgical pathology showed invasive ductal carcinoma, high grade, measuring 4.3 x 3.3 x 1.5 cm, without DCIS. Skeletal muscle was involved no lymphovascular invasion no skin or nipple involvement. All margins negative. [place] lymph node was 0/1. Stage: ypT2 ypN0(sn). She is now currently being followed by Pinky Cottrell for wound healing. Interim Events: Since her previous visit here, this case was discussed at our breast [facility] [place] at [facility]. And the consensus from the tumor board is that patient will need adjuvant radiotherapy. Since patient has already completed a full course of chemotherapy, no further adjuvant chemotherapy is recommended at this moment. The [facility] [place] has already called the patient. - Patient Self-Reported Symptoms SR respiratory issues: Cough, Mucous SR Skin issues: Skin rash or itching SR Genitourinary issues: Frequent urination, Burning/painful urination SR Musculoskeletal issues: Difficulty walking - Additional ROS All systems PM: reviewed and no additional remarkable complaints except as stated Home Medications and Allergies Home Medications Medication Instructions Recorded Confirmed Type OMEGA-3 FATTY ACIDS (FISH OIL) 500 mg PO Q DAY #0 04/24/16 09/12/18 History Lacto.acidophilus-Bif.animalis 1 cap PO DAILY 12/15/17 09/12/18 History [Probiotic] loratadine [Claritin] 10 mg PO DAILY PRN 12/15/17 09/12/18 History multivitamin 1 tab PO DAILY 12/15/17 09/12/18 History vitamin B complex 1 tab PO DAILY 12/15/17 09/12/18 History mupirocin 2 % topical ointment 1 applic TOP BID #30 gram 06/14/18 09/12/18 Rx acetaminophen [Tylenol] 325 mg PO DAILY 07/29/18 09/12/18 History nitrofurantoin monohyd/m-cryst 100 mg PO Q12H #10 cap 08/18/18 09/12/18 Rx [Macrobid] Allergies Allergy/AdvReac Type Severity Reaction Status Date / Time Sulfa (Sulfonamide Allergy Unknown Verified 06/14/18 09:20 Antibiotics) [SULFA (SULFONAMIDE ANTIBIOTICS)] Exam Vital signs: Last Vital Signs Temp 97.1 F L 12/22/18 10:15 Pulse 90 12/22/18 10:15 Resp 18 12/22/18 10:15 BP 109/60 12/22/18 10:15 Pulse Ox 100 12/22/18 10:15 ECOG 1 Narrative: Constitutional: WDWN, NAD, thin, pleasant and cooperative, came in by herself. HEENT: NCAT, EOMI, PERRLA, anicteric sclera. Neck: Supple, No palpable thyromegaly and no palpable lymph nodes. Respiratory: Clear to auscultation, and no wheezes. Cardiovascular: RRR, S1 and S2 normal, no m/g/r. Abdomen: Soft, nontender, non-distended, no palpable organomegaly. Lower extremities: No pitting edema of lower extremities. Neurological: AOx3, CN II-XII grossly intact. No focal motor or sensory deficit. Psychiatric: Good judgment, good insight, normal affect, normal thought process, cooperative, no depression, no anxiety. Breast exam: only examined the left: surgical wound completely healed. no secretions no erythema. All physical examinations were chaperoned. Results - Labs Laboratory Last Values WBC 6.1 X10^3/uL (4.5-11.0) 10/10/18 15:52 RBC 2.86 X10^6/uL (4.0-5.2) L 10/10/18 15:52 Hgb 9.6 g/dL (12.0-16.0) L 10/10/18 15:52 Hct 27.5 % (36-46) L 10/10/18 15:52 MCV 96.2 fL (80-100) 10/10/18 15:52 MCH 33.5 PG (26-34) 10/10/18 15:52 MCHC 34.8 % (30-36) 10/10/18 15:52 RDW 15.9 % (11.6-14.8) H 10/10/18 15:52 Plt Count 473 X10^3/uL (150-400) H 10/10/18 15:52 Neut % (Auto) 61.9 % (50-75) 10/10/18 15:52 Lymph % (Auto) 24.5 % (25-40) L 10/10/18 15:52 [place] % (Auto) 6.7 % (3-14) 10/10/18 15:52 Eos % (Auto) 5.8 % (2-4) H 10/10/18 15:52 Baso % (Auto) 1.1 % (0-2) 10/10/18 15:52 Neut # (Auto) 3800 /uL (3943-1963) 10/10/18 15:52 Lymph # (Auto) 1500 /uL (6205-7790) 10/10/18 15:52 [place] # (Auto) 400 /uL (0-900) 10/10/18 15:52 Eos # (Auto) 400 /uL (0-450) 10/10/18 15:52 Baso # (Auto) 100 /uL (0-100) 10/10/18 15:52 Sodium 129 mmol/L (137-145) L 10/10/18 15:52 Potassium 4.0 mmol/L (3.4-5.1) 10/10/18 15:52 Chloride 94 mmol/L (98-107) L 10/10/18 15:52 Carbon Dioxide 27 mmol/L (22-32) 10/10/18 15:52 BUN 6 mg/dL (7-17) L 10/10/18 15:52 Creatinine 0.50 mg/dL (0.52-1.04) L 10/10/18 15:52 Estimated GFR > 60.0 mL/min (>60) 10/10/18 15:52 BUN/Creatinine Ratio 12.0 (6-22) 10/10/18 15:52 Glucose 75 mg/dL (70-100) 10/10/18 15:52 Calcium 8.6 mg/dL (8.4-10.2) 10/10/18 15:52 Total Bilirubin < 0.1 mg/dL (0.2-1.3) L 10/10/18 15:52 AST 59 IU/L (14-36) H 10/10/18 15:52 ALT 57 IU/L (9-52) H 10/10/18 15:52 Alkaline Phosphatase 70 U/L (38-126) 10/10/18 15:52 Total Protein 6.9 g/dL (6.3-8.2) 10/10/18 15:52 Albumin 3.9 g/dL (3.5-5.0) 10/10/18 15:52 Globulin 3.0 g/dL (1.7-4.1) 10/10/18 15:52 Albumin/Globulin Ratio 1.3 (1.0-2.8) 10/10/18 15:52 Carcinoembryonic Ag 4.0 ng/mL (0.1-3.0) H 09/12/18 15:26 CA 27-29 19 U/mL (< 38) 07/01/18 09:11 Urine Color Yellow 08/18/18 08:55 Urine Appearance Clear 08/18/18 08:55 Urine pH 7.0 (4.5-8.0) 08/18/18 08:55 Ur Specific [place] 1.010 (1.000-1.035) 08/18/18 08:55 Urine Protein Negative (Negative) 08/18/18 08:55 Urine Glucose (UA) Negative g/dL (Negative) 08/18/18 08:55 Urine Ketones Negative (NEGATIVE) 08/18/18 08:55 Urine Occult Blood Negative (Negative) 08/18/18 08:55 Urine Nitrate Negative (Negative) 08/18/18 08:55 Urine Bilirubin Negative (NEGATIVE) 08/18/18 08:55 Urine Urobilinogen 0.2 E.U./dL (0.2) 08/18/18 08:55 Ur Leukocyte Esterase Negative (NEGATIVE) 08/18/18 08:55 Urine RBC None seen (0-5/HPF) 08/18/18 08:55 Urine WBC 0-1/hpf (0-5/HPF) 08/18/18 08:55 Urine Bacteria Occasional (0-1) (None) 08/18/18 08:55 Ur Culture Indicated? Cult not indicated 08/18/18 08:55 Assessment and Plan (1) Triple negative malignant neoplasm of breast Assessment: 1. Localized advanced left triple negative breast cancer diagnosed on 10/09/2015. She underwent neoadjuvant chemotherapy with dose dense AC for 4 cycles followed by weekly paclitaxel/carboplatin completed 05/01/2017. Patient's left breast mass has decreased significantly to the size of a pea, but she chose not to proceed with scheduled surgery, and lost to follow-up. 2. Recurrent locally with skin ulceration and smells at the left breat in 01/2018, confirmed by re-biopy to be TNBC. Restaging CAP showed no distant metastasis. Preoperative chemotherapy was recommended due to concern to close the defect because of the size of the tumor. 3. Weekly carboplatin and paclitaxel 02/22/2018 at [facility] initiated 02/22/2018, completed total of 12 cycles on 08/25/2018. 4. Left simple total mastecotmy with left sentinel node biopsy on 09/16/2018. The surgical pathology showed invasive ductal carcinoma, high grade, measuring 4.3 x 3.3 x 1.5 cm, without DCIS. Skeletal muscle was involved, no lymphovascular invasion, no skin or nipple involvement. All margins negative. [place] lymph node was 0/1. Stage: ypT2 ypN0(sn). This case was discussed at our tumor board. Our tumor Board recommended no more adjuvant chemotherapy. But patient will need adjuvant radiation therapy. Plan 1. Follow up at [facility] for adjuvant XRT (scheduled 01/09/2019) 2. RTC in 2 months for follow up visit.
--- NOTE | 2018-12-22 10:38 | P.PNONC_ITS ---
PN -Subjective Interval history: Lisa Llamas is a 52-year-old female. She was diagnosed with left breast localized advanced triple negative breast cancer (TNBC) on 10/09/2015. The primary tumor measured 6 x 6 cm at 10:00. She underwent neoadjuvant dose dense AC x 4 cycles followed by weekly Paclitaxel/Carboplatin completed 05/01/2017. Patient's left breast mass shrunk to the size of pea. However patient herself chose not to proceed with scheduled surgery, and did not came back for follow- up. In 01/2018, due to re-growth of her left breast tumor with skin ulceration and smells as well as left shoulder pain, she showed up for reevaluation. CT CAP showed no evidence of metastasis in the bone or other locations. She underwent re-biopsy of the left breast cancer on 02/07/2018 and it was confirmed to be TNBC. Preoperative chemotherapy was recommended in anticipation of difficulty closing the big defect if surgery resection upfront. She was started on weekly Carboplatin (AUC 2) and Paclitaxel (80 mg/m2) on 02/22/2018 at [facility]. After 5 weekly treatments (02/22/2018, 03/01/2018, 03/08/2018, 03/15/2018 and 03/22/2018 respectively, her left shoulder pain and range of movement improved. 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 On 07/01/2018, because the left breast lump began to grow again with recurrent left shoulder stiffness and left shoulder pain, she presented at [facility] and request to resume chemotherapy. During her visit on 07/01/2018, out of concern for possible left supraclavicular palpable lymph node, repeat CT scan of the chest abdomen pelvis together with CT scan of the neck were obtained to evaluate for possible disease progression or metastasis. Fortunately the CT scan showed no evidence of disease metastasis in the neck or other parts of the body. It also showed that the left breast lump actually is decreasing in size. Subsequently will resumed the weekly carboplatin/paclitaxel. Patient completed a total of 12 cycles of carbo and paclitaxel on 08/25/2018. On 09/16/2018, patient underwent left simple total mastectomy and left axillary sentinel lymph node biopsy. The surgical pathology showed invasive ductal carcinoma, high grade, measuring 4.3 x 3.3 x 1.5 cm, without DCIS. Skeletal muscle was involved no lymphovascular invasion no skin or nipple involvement. All margins negative. [place] lymph node was 0/1. Stage: ypT2 ypN0(sn). She is now currently being followed by Pinky Cottrell for wound healing. Interim Events: Since her previous visit here, this case was discussed at our [facility] [place] [facility]. And the consensus from the tumor board is that patient will need adjuvant radiotherapy. Since patient has already completed a full course of chemotherapy, no further adjuvant chemotherapy is recommended at this moment. The [facility] [place] has already called the patient. - Patient Self-Reported Symptoms SR respiratory issues: Cough, Mucous SR Skin issues: Skin rash or itching SR Genitourinary issues: Frequent urination, Burning/painful urination SR Musculoskeletal issues: Difficulty walking - Additional ROS All systems PM: reviewed and no additional remarkable complaints except as stated Home Medications and Allergies Home Medications Medication Instructions Recorded Confirmed Type OMEGA-3 FATTY ACIDS (FISH OIL) 500 mg PO Q DAY #0 04/24/16 09/12/18 History Lacto.acidophilus-Bif.animalis 1 cap PO DAILY 12/15/17 09/12/18 History [Probiotic] loratadine [Claritin] 10 mg PO DAILY PRN 12/15/17 09/12/18 History multivitamin 1 tab PO DAILY 12/15/17 09/12/18 History vitamin B complex 1 tab PO DAILY 12/15/17 09/12/18 History mupirocin 2 % topical ointment 1 applic TOP BID #30 gram 06/14/18 09/12/18 Rx acetaminophen [Tylenol] 325 mg PO DAILY 07/29/18 09/12/18 History nitrofurantoin monohyd/m-cryst 100 mg PO Q12H #10 cap 08/18/18 09/12/18 Rx [Macrobid] Allergies Allergy/AdvReac Type Severity Reaction Status Date / Time Sulfa (Sulfonamide Allergy Unknown Verified 06/14/18 09:20 Antibiotics) [SULFA (SULFONAMIDE ANTIBIOTICS)] Exam Vital signs: Last Vital Signs Temp 97.1 F L 12/22/18 10:15 Pulse 90 12/22/18 10:15 Resp 18 12/22/18 10:15 BP 109/60 12/22/18 10:15 Pulse Ox 100 12/22/18 10:15 ECOG 1 Narrative: Constitutional: WDWN, NAD, thin, pleasant and cooperative, came in by herself. HEENT: NCAT, EOMI, PERRLA, anicteric sclera. Neck: Supple, No palpable thyromegaly and no palpable lymph nodes. Respiratory: Clear to auscultation, and no wheezes. Cardiovascular: RRR, S1 and S2 normal, no m/g/r. Abdomen: Soft, nontender, non-distended, no palpable organomegaly. Lower extremities: No pitting edema of lower extremities. Neurological: AOx3, CN II-XII grossly intact. No focal motor or sensory deficit. Psychiatric: Good judgment, good insight, normal affect, normal thought process, cooperative, no depression, no anxiety. Breast exam: only examined the left: surgical wound completely healed. no secretions no erythema. All physical examinations were chaperoned. Results - Labs Laboratory Last Values WBC 6.1 X10^3/uL (4.5-11.0) 10/10/18 15:52 RBC 2.86 X10^6/uL (4.0-5.2) L 10/10/18 15:52 Hgb 9.6 g/dL (12.0-16.0) L 10/10/18 15:52 Hct 27.5 % (36-46) L 10/10/18 15:52 MCV 96.2 fL (80-100) 10/10/18 15:52 MCH 33.5 PG (26-34) 10/10/18 15:52 MCHC 34.8 % (30-36) 10/10/18 15:52 RDW 15.9 % (11.6-14.8) H 10/10/18 15:52 Plt Count 473 X10^3/uL (150-400) H 10/10/18 15:52 Neut % (Auto) 61.9 % (50-75) 10/10/18 15:52 Lymph % (Auto) 24.5 % (25-40) L 10/10/18 15:52 [place] % (Auto) 6.7 % (3-14) 10/10/18 15:52 Eos % (Auto) 5.8 % (2-4) H 10/10/18 15:52 Baso % (Auto) 1.1 % (0-2) 10/10/18 15:52 Neut # (Auto) 3800 /uL (6559-5491) 10/10/18 15:52 Lymph # (Auto) 1500 /uL (2364-0725) 10/10/18 15:52 [place] # (Auto) 400 /uL (0-900) 10/10/18 15:52 Eos # (Auto) 400 /uL (0-450) 10/10/18 15:52 Baso # (Auto) 100 /uL (0-100) 10/10/18 15:52 Sodium 129 mmol/L (137-145) L 10/10/18 15:52 Potassium 4.0 mmol/L (3.4-5.1) 10/10/18 15:52 Chloride 94 mmol/L (98-107) L 10/10/18 15:52 Carbon Dioxide 27 mmol/L (22-32) 10/10/18 15:52 BUN 6 mg/dL (7-17) L 10/10/18 15:52 Creatinine 0.50 mg/dL (0.52-1.04) L 10/10/18 15:52 Estimated GFR > 60.0 mL/min (>60) 10/10/18 15:52 BUN/Creatinine Ratio 12.0 (6-22) 10/10/18 15:52 Glucose 75 mg/dL (70-100) 10/10/18 15:52 Calcium 8.6 mg/dL (8.4-10.2) 10/10/18 15:52 Total Bilirubin < 0.1 mg/dL (0.2-1.3) L 10/10/18 15:52 AST 59 IU/L (14-36) H 10/10/18 15:52 ALT 57 IU/L (9-52) H 10/10/18 15:52 Alkaline Phosphatase 70 U/L (38-126) 10/10/18 15:52 Total Protein 6.9 g/dL (6.3-8.2) 10/10/18 15:52 Albumin 3.9 g/dL (3.5-5.0) 10/10/18 15:52 Globulin 3.0 g/dL (1.7-4.1) 10/10/18 15:52 Albumin/Globulin Ratio 1.3 (1.0-2.8) 10/10/18 15:52 Carcinoembryonic Ag 4.0 ng/mL (0.1-3.0) H 09/12/18 15:26 CA 27-29 19 U/mL (< 38) 07/01/18 09:11 Urine Color Yellow 08/18/18 08:55 Urine Appearance Clear 08/18/18 08:55 Urine pH 7.0 (4.5-8.0) 08/18/18 08:55 Ur Specific [place] 1.010 (1.000-1.035) 08/18/18 08:55 Urine Protein Negative (Negative) 08/18/18 08:55 Urine Glucose (UA) Negative g/dL (Negative) 08/18/18 08:55 Urine Ketones Negative (NEGATIVE) 08/18/18 08:55 Urine Occult Blood Negative (Negative) 08/18/18 08:55 Urine Nitrate Negative (Negative) 08/18/18 08:55 Urine Bilirubin Negative (NEGATIVE) 08/18/18 08:55 Urine Urobilinogen 0.2 E.U./dL (0.2) 08/18/18 08:55 Ur Leukocyte Esterase Negative (NEGATIVE) 08/18/18 08:55 Urine RBC None seen (0-5/HPF) 08/18/18 08:55 Urine WBC 0-1/hpf (0-5/HPF) 08/18/18 08:55 Urine Bacteria Occasional (0-1) (None) 08/18/18 08:55 Ur Culture Indicated? Cult not indicated 08/18/18 08:55 Assessment and Plan (1) Triple negative malignant neoplasm of breast Assessment: 1. Localized advanced left triple negative breast cancer diagnosed on 10/09/2015. She underwent neoadjuvant chemotherapy with dose dense AC for 4 cycles followed by weekly paclitaxel/carboplatin completed 05/01/2017. Patient's left breast mass has decreased significantly to the size of a pea, but she chose not to proceed with scheduled surgery, and lost to follow-up. 2. Recurrent locally with skin ulceration and smells at the left breat in 01/2018, confirmed by re-biopy to be TNBC. Restaging CAP showed no distant metastasis. Preoperative chemotherapy was recommended due to concern to close the defect because of the size of the tumor. 3. Weekly carboplatin and paclitaxel 02/22/2018 at [facility] initiated 02/22/2018, completed total of 12 cycles on 08/25/2018. 4. Left simple total mastecotmy with left sentinel node biopsy on 09/16/2018. The surgical pathology showed invasive ductal carcinoma, high grade, measuring 4.3 x 3.3 x 1.5 cm, without DCIS. Skeletal muscle was involved, no lymphovascular invasion, no skin or nipple involvement. All margins negative. [place] lymph node was 0/1. Stage: ypT2 ypN0(sn). This case was discussed at our tumor board. Our tumor Board recommended no more adjuvant chemotherapy. But patient will need adjuvant radiation therapy. Plan 1. Follow up at [facility] for adjuvant XRT (scheduled 01/09/2019) 2. RTC in 2 months for follow up visit.
[2018-12-22 11:46] LABS: Appearance Urine UA CLEAR; Bilirubin Urine UA NEGATIVE (NEGATIVE); Color Urine UA YELLOW; Glucose Urine UA NEGATIVE (Negative); Ketones Urine UA NEGATIVE (NEGATIVE); Leukocyte Esterase Urine UA 1+ (NEGATIVE); Nitrite Urine UA NEGATIVE (Negative); Occult Blood Urine UA NEGATIVE (Negative); Protein Urine UA NEGATIVE (Negative); Specific Gravity Urine UA <=1.005 (1.000-1.035); Urobilinogen Urine UA 0.2 E.U./dL (0.2); pH Urine UA 5.5 (4.5-8.0)
[2018-12-22 12:09] LABS: Bacteria Urine Few (2-10); Culture Indicated Urine Specimen Cultured; RBC Urine 0-1/HPF (0-5/HPF); WBC Urine 5-10/HPF (0-5/HPF)
== END ==
PROVIDERS: Nurse Practitioner Gerontology; Family Provider Physician Assistant; PCP Physician Assistant; Visit Provider Internal Medicine Hematology & Oncology
DX: C50.212 Malignant neoplasm of upper-inner quadrant of left female breast (principal); R35.0 Frequency of micturition; R30.9 Painful micturition, unspecified; Z17.1 Estrogen receptor negative status [ER-]
CPT/HCPCS: 36415; 36591; 80053; 81001; 82378; 85025; 86300; 87086; 96374; 96375; 96413; 96415; 96417; 96523; 99214; 99215; J1100; J2405; J7060; J9045; J9267